=== PATIENT | female | born 1930 | race Caucasian/White ===

== ENCOUNTER → 2016-12-06 | Outpatient (CLI) | payer MEDICARE, BC ==
[2016-06-24 15:45] VITALS: BP 107/52
[~2016-12-06] MED LIST: AMIO100T PO; DULO30CA2 PO; ESOM40CA PO; FAMO40TA4 PO; FENT1PAT17 TP; FENT1PAT91 TD; GABA-585 PO; HYDR-2666 PO; LEVO500T38 PO; MELA5TAB PO; METH-37 PO; NAPR500T3 PO; ORPH100T PO; PHEN100C4 PO; TAMS0.4C2 PO
--- NOTE | 2016-12-06 16:34 | RAD ---
Examination: Ankle brachial index in the bilateral lower extremity arterial duplex Ankle brachial index Indication: Claudication, peripheral vascular disease. Comparison: None. Procedure: Arterial pressures are measured in the arms and ankles. Findings: . Right ankle: 116 mm Hg. Right arm: 136 mm Hg. Left ankle: Could not compress. Left arm: 120 mm Hg. Right SHILOH: 0.85. Left SHILOH: Could not compress the left posterior tibialis artery or dorsalis pedis artery.. Lower extremity duplex artery ultrasound - Procedure: Arterial 2D and duplex images are obtained of the lower extremity arteries. Findings: Diffuse atherosclerotic calcifications identified in the bilateral lower extremity arterial system.. No evidence of focal elevated velocity identified. The left peroneal artery could not be identified. Impression: 1. Mild diffuse atherosclerotic plaque formation with no hemodynamically significant stenosis.. 2. Mild peripheral vascular disease on the right. The left SHILOH could not be performed as the arteries could not be compressed.
== END | disposition home or self-care (01) ==
LOC: US 15:46
PROVIDERS: ATTEND Podiatrist Foot & Ankle Surgery
DX: I73.9 Peripheral vascular disease, unspecified (principal)
CPT/HCPCS: 93922; 93925

== ENCOUNTER → 2017-03-09 | Outpatient (CLI) | payer MEDICARE, BC ==
[2016-06-24 15:45] VITALS: BP 107/52
[~2017-03-09] MED LIST changes: -HYDR-2666 PO; +HYDR-2758 PO; -LEVO500T38 PO; +LEVO500T59 PO
--- NOTE | 2017-03-09 13:25 | KCIC ---
INDICATION: Lower extremity swelling and pain bilaterally. TECHNIQUE: Grayscale, color-flow, and spectral waveform analysis was performed. No comparison is available. FINDINGS: All visualized vein segments are compressible with normal phasicity of waveform and augmentation. No thrombus on grayscale or color imaging is identified. IMPRESSION: Exam is negative for deep vein thrombosis in either lower extremity. Electronically signed by: Fritz Choi MD (03/09/2017 1:22 PM) [facility]
== END | disposition home or self-care (01) ==
LOC: KCIC US 10:59
PROVIDERS: ATTEND Podiatrist Foot & Ankle Surgery
DX: M79.605 Pain in left leg (principal); M79.604 Pain in right leg; M79.89 Other specified soft tissue disorders
CPT/HCPCS: 93970

== ENCOUNTER 2017-04-03 21:10 | Inpatient (IN) | payer MEDICARE, BC ==
[~2017-04-03] VITALS: Ht 165.1 cm; Wt 41.3 kg
[2017-04-03] MEDS ORDERED: fentaNYL PF VIAL 100 MCG/2 ML VIAL IV PRN (22:15)
[2017-04-03 22:28] LABS: BASO % 1 % (0-3); EOS % 2 % (0-3); HEMATOCRIT 29.2 % (36.0-47.0); HEMOGLOBIN 9.2 g/dL (12.0-15.5); LYMPH # 1.6 x10^3/uL (1.0-4.8); LYMPH % 33 % (24-48); MEAN CORPUSCULAR HEMOGLOBIN 30 pg (25-35); MEAN CORPUSCULAR HGB CONC 31 g/dL (31-37); MEAN CORPUSCULAR VOLUME 94 fL (79-100); MONO % 16 % (0-9); NEUT % 48 % (31-73); PLATELET COUNT 185 x10^3/uL (140-400); RED BLOOD COUNT 3.11 x10^6/uL (3.50-5.40); RED CELL DISTRIBUTION WIDTH 15.1 % (11.5-14.5); WHITE BLOOD COUNT 4.7 x10^3/uL (4.0-11.0)
[2017-04-03 22:41] LABS: ANION GAP 10 (6-14); BLOOD UREA NITROGEN 17 mg/dL (7-20); CALCIUM 8.6 mg/dL (8.5-10.1); CARBON DIOXIDE 25 mmol/L (21-32); CHLORIDE 104 mmol/L (98-107); CREATININE 1.1 mg/dL (0.6-1.0); GLUCOSE 93 mg/dL (70-99); POTASSIUM 4.5 mmol/L (3.5-5.1); SODIUM 139 mmol/L (136-145)
[2017-04-03 22:47] LABS: ALBUMIN 3.8 g/dL (3.4-5.0); ALK PHOS 328 U/L (46-116); ALT (SGPT) 16 U/L (14-59); AST (SGOT) 23 U/L (15-37); DIRECT BILIRUBIN < 0.1 mg/dL (0.0-0.2); TOTAL BILIRUBIN 0.4 mg/dL (0.2-1.0); TOTAL PROTEIN 8.5 g/dL (6.4-8.2)
[2017-04-03 23:31] LABS: INR 1.1 (0.8-1.1); PROTHROMBIN TIME PATIENT 13.1 SEC (11.7-14.0)
--- NOTE | 2017-04-04 00:05 | RAD ---
CT CHEST WO CONTRAST dated 04/03/2017 11:16 PM Indication: Shortness of breath, chest pain, history of iodine allergy. Comparison: 06/19/2016 Technique: Contiguous axial imaging of the chest performed without the administration of intravenous contrast. One or more of the following individualized dose reduction techniques were utilized for this examination: 1. Automated exposure control 2. Adjustment of the mA and/or kV according to patient size 3. Use of iterative reconstruction technique Findings: Heart size upper limits of normal. Aneurysmal dilation of the ascending thoracic aorta measuring 4.8 cm maximum transverse diameter, similar to prior study. Mild ectasia of the aortic root measuring 3.5 cm, unchanged. No periaortic fluid collection or pericardial effusion. No mediastinal, hilar or axillary lymphadenopathy. Low-density nodule of the right thyroid gland measures 8 mm in size, nonspecific but unchanged. Central airways are patent. There are linear bands of increased density at both lung bases, likely scar or atelectasis. No consolidation or pleural effusion. No pneumothorax. There are a few scattered calcified granuloma. Limited images of upper abdomen unremarkable. IVC filter in place. No acute bony abnormality. Multilevel spondylosis. Moderate thoracolumbar scoliotic curvature. IMPRESSION: 1. Aneurysmal dilation of the ascending thoracic aorta, similar to prior study. 2. Mild bibasilar scar or atelectasis. Otherwise clear lungs. Electronically signed by: Samy Umana MD (04/04/2017 12:02 AM) [facility]
--- NOTE | 2017-04-04 01:10 | RAD ---
INDICATION: bilat leg pain swelling COMPARISON: None. TECHNIQUE: Grayscale, color and doppler ultrasound images were obtained of the bilateral lower extremity venous vasculature. RIGHT: No thrombus identified in the common femoral vein, femoral vein, popliteal vein or visualized calf veins. LEFT: No thrombus identified in the common femoral vein, femoral vein, popliteal vein or visualized calf veins. Edema of soft tissues is seen. Some limitation of calf veins. IMPRESSION: 1. No thrombus identified in deep venous system of bilateral lower extremities. Electronically signed by: Froilan Soto MD (04/04/2017 1:07 AM) [facility] [id number]
--- NOTE | 2017-04-04 01:16 | ED.ADGEN ---
Past Medical History Past Medical History: Arthritis, Arrhythmia, COPD, GERD, Hypertension, Seizure , Other Additional Past Medical Histor: SCOLIOSIS; colon cancer post resection Additional Past Surgical Histo: hemicolectomy for colon cancer Alcohol Use: None Drug Use: None Adult General Chief Complaint Chief Complaint: MULTIPLE COMPLAINTS HPI HPI Patient is a 87 year old woman, remote history of colon cancer, history of hypertension, COPD, GERD, scoliosis, DVT with IVC filter in place not anticoagulation, who presents to the emergency department with a complaint of chest pain that is left-sided intermittent over the past day, associated with shortness of breath, no cough. Patient states she is also experiencing swelling in her lower extremities, right-sided greater than left, and pain in her lower extremities, right-sided greater than left of present in both legs. Patient denies any fevers or chills, any urinary complaints, any nausea or vomiting, any diarrhea, any recent travel or surgery, any missed doses of medication recent medication changes. She states the pain is located along the entire left side of her chest, sharp and stabbing, currently resolved. Patient's daughters are at bedside. Review of Systems Review of Systems Constitutional: Denies fever or chills. [] Eyes: Denies change in visual acuity. [] HENT: Denies nasal congestion or sore throat. [] Respiratory: Denies cough, complaining of shortness of breath. Cardiovascular: Left-sided chest pain, swelling in bilateral lower extremities. GI: Denies abdominal pain, nausea, vomiting, bloody stools or diarrhea. [] : Denies dysuria. [] Musculoskeletal: Denies back pain or joint pain. [] Integument: Denies rash. [] Neurologic: Denies headache, focal weakness or sensory changes. [] Endocrine: Denies polyuria or polydipsia. [] Lymphatic: Denies swollen glands. [] Psychiatric: Denies depression or anxiety. [] Current Medications Current Medications Current Medications Medications (Trade) Dose Ordered Sig/Christine Start Time Stop Time Status Last Admin Dose Admin Fentanyl Citrate (Fentanyl 2ml Vial) 25 mcg PRN Q15MIN PRN 04/03/17 22:15 04/04/17 22:14 Allergies Allergies Allergies Coded Allergies Type Severity Reaction Last Updated Verified Penicillins Allergy Intermediate 12/31/15 Yes Sulfa (Sulfonamide Antibiotics) Allergy Intermediate 12/31/15 Yes adhesive tape Allergy Intermediate 12/31/15 Yes aspirin Allergy Intermediate 12/31/15 Yes doxycycline Allergy Intermediate 12/31/15 Yes ferrous sulfate Allergy Intermediate 12/31/15 Yes ibuprofen Allergy Intermediate 12/31/15 Yes iodine Allergy Intermediate 12/31/15 Yes lactose Allergy Intermediate 12/31/15 Yes morphine Allergy Intermediate 12/31/15 Yes povidone-iodine Allergy Intermediate 12/31/15 Yes silver sulfadiazine Allergy Intermediate 12/31/15 Yes soap Allergy Intermediate 12/31/15 Yes I S O L A T I O N *CONTACT* Allergy Unknown 01/03/16 Yes Physical Exam Physical Exam Constitutional: Well developed, well nourished, no acute distress, non-toxic appearance. [] HENT: Normocephalic, atraumatic, bilateral external ears normal, oropharynx moist, no oral exudates, nose normal. [] Eyes: PERRLA, EOMI, conjunctiva normal, no discharge. [] Neck: Normal range of motion, no tenderness, supple, no stridor. [] Cardiovascular:Heart rate regular rhythm, no murmur, S1, S2, rubs or gallops. [] Lungs & Thorax: Diminished breath sounds at bases bilaterally, no rhonchi or rales appreciated, no wheezing. No chest wall crepitus or tenderness.[] Abdomen: Bowel sounds normal, soft, no tenderness, no rebound, rigidity, no guarding, no masses, no pulsatile masses. [] Skin: Warm, dry, no erythema, no rash. [] Back: No tenderness, no CVA tenderness. [] Extremities: No tenderness, no cyanosis, no clubbing, ROM intact, 1+ pitting edema bilateral lower extremity is, patient with pain with palpation of the right calf. No cord noted. Neurologic: Alert and oriented X 3, normal motor function, normal sensory function, no focal deficits noted. [] Psychologic: Affect normal, judgement normal, mood normal. [] Current Patient Data Lab Values Laboratory Tests Test 04/03/17 21:25 White Blood Count 4.7 x10^3/uL (4.0-11.0) Red Blood Count 3.11 x10^6/uL (3.50-5.40) L Hemoglobin 9.2 g/dL (12.0-15.5) L Hematocrit 29.2 % (36.0-47.0) L Mean Corpuscular Volume 94 fL (79-100) Mean Corpuscular Hemoglobin 30 pg (25-35) Mean Corpuscular Hemoglobin Concent 31 g/dL (31-37) Red Cell Distribution Width 15.1 % (11.5-14.5) H Platelet Count 185 x10^3/uL (140-400) Neutrophils (%) (Auto) 48 % (31-73) Lymphocytes (%) (Auto) 33 % (24-48) Monocytes (%) (Auto) 16 % (0-9) H Eosinophils (%) (Auto) 2 % (0-3) Basophils (%) (Auto) 1 % (0-3) Neutrophils # (Auto) 2.3 x10^3uL (1.8-7.7) Lymphocytes # (Auto) 1.6 x10^3/uL (1.0-4.8) Monocytes # (Auto) 0.7 x10^3/uL (0.0-1.1) Eosinophils # (Auto) 0.1 x10^3/uL (0.0-0.7) Basophils # (Auto) 0.0 x10^3/uL (0.0-0.2) Prothrombin Time 13.1 SEC (11.7-14.0) Prothrombin Time INR 1.1 (0.8-1.1) PTT 31 SEC (24-38) Sodium Level 139 mmol/L (136-145) Potassium Level 4.5 mmol/L (3.5-5.1) Chloride Level 104 mmol/L (98-107) Carbon Dioxide Level 25 mmol/L (21-32) Anion Gap 10 (6-14) Blood Urea Nitrogen 17 mg/dL (7-20) Creatinine 1.1 mg/dL (0.6-1.0) H Estimated GFR (Cockcroft-Gault) 47.0 Glucose Level 93 mg/dL (70-99) Calcium Level 8.6 mg/dL (8.5-10.1) Total Bilirubin 0.4 mg/dL (0.2-1.0) Direct Bilirubin < 0.1 mg/dL (0.0-0.2) Aspartate Amino Transferase (AST) 23 U/L (15-37) Alanine Aminotransferase (ALT) 16 U/L (14-59) Alkaline Phosphatase 328 U/L (46-116) H Troponin I Quantitative < 0.017 ng/mL (0.000-0.055) LY-Vtm-N-Type Natriuretic Peptide 1040 pg/mL (0-449) H Total Protein 8.5 g/dL (6.4-8.2) H Albumin 3.8 g/dL (3.4-5.0) Lipase 94 U/L (73-393) Laboratory Tests 04/03/17 21:25 Laboratory Tests 04/03/17 21:25 EKG EKG EC: Sinus rhythm, heart rate 57 bpm, upright axis, QTC of 447, MS 152, QRS of 78, patient with contour abnormalities noted in the anterior septal leads , but no ST elevations or depressions, abnormal ECG, does not meet STEMI criteria. As interpreted by me.[] Radiology/Procedures Radiology/Procedures [][facility] [address] [place] [address] IMAGING REPORT Signed PATIENT: GEN PEARSON ACCOUNT: [id number] : 1930 LOCATION: ER AGE: 87 SEX: F EXAM STATUS: REG ER ORD. PHYSICIAN: GELY YOUSSEF DO REASON: CP/SOB/hx DVT PROCEDURE: CT CHEST WO CONTRAST CT CHEST WO CONTRAST dated 04/03/2017 11:16 PM Indication: Shortness of breath, chest pain, history of iodine allergy. Comparison: 06/19/2016 Technique: Contiguous axial imaging of the chest performed without the administration of intravenous contrast. One or more of the following individualized dose reduction techniques were utilized for this examination: 1. Automated exposure control 2. Adjustment of the mA and/or kV according to patient size 3. Use of iterative reconstruction technique Findings: Heart size upper limits of normal. Aneurysmal dilation of the ascending thoracic aorta measuring 4.8 cm maximum transverse diameter, similar to prior study. Mild ectasia of the aortic root measuring 3.5 cm, unchanged. No periaortic fluid collection or pericardial effusion. No mediastinal, hilar or axillary lymphadenopathy. Low-density nodule of the right thyroid gland measures 8 mm in size, nonspecific but unchanged. Central airways are patent. There are linear bands of increased density at both lung bases, likely scar or atelectasis. No consolidation or pleural effusion. No pneumothorax. There are a few scattered calcified granuloma. Limited images of upper abdomen unremarkable. IVC filter in place. No acute bony abnormality. Multilevel spondylosis. Moderate thoracolumbar scoliotic curvature. IMPRESSION: 1. Aneurysmal dilation of the ascending thoracic aorta, similar to prior study. 2. Mild bibasilar scar or atelectasis. Otherwise clear lungs. Electronically signed by: Samy Umana MD (04/04/2017 12:02 AM) [facility] DICTATED and SIGNED BY: SAMY UMANA MD DATE: 04/03/17 2739 CC: DAVID CASTREJON MD; GELY YOUSSEF DO ~ Impressions: [place] [address] IMAGING REPORT Signed PATIENT: GEN PEARSON ACCOUNT: [id number] : 1930 LOCATION: ER AGE: 87 SEX: F EXAM STATUS: REG ER ORD. PHYSICIAN: GELY YOUSSEF DO REASON: LE swelling/pain/ hx DVT PROCEDURE: VENOUS LOWER EXT BILATERAL INDICATION: bilat leg pain swelling COMPARISON: None. TECHNIQUE: Grayscale, color and doppler ultrasound images were obtained of the bilateral lower extremity venous vasculature. RIGHT: No thrombus identified in the common femoral vein, femoral vein, popliteal vein or visualized calf veins. LEFT: No thrombus identified in the common femoral vein, femoral vein, popliteal vein or visualized calf veins. Edema of soft tissues is seen. Some limitation of calf veins. IMPRESSION: 1. No thrombus identified in deep venous system of bilateral lower extremities. Electronically signed by: Xavier Hough MD (04/04/2017 1:07 AM) [facility] DICTATED and SIGNED BY: XAVIER HOUGH MD DATE: 04/04/17 010 CC: DAVID CASTREJON MD; GELY YOUSSEF DO ~ [address] [address] IMAGING REPORT Signed PATIENT: GEN PEARSON ACCOUNT: [id number] : 1930 LOCATION: [address] [place] [address] AGE: 87 SEX: F EXAM STATUS: ADM IN ORD. PHYSICIAN: GELY YOUSSEF DO REASON: CP/SOB/hx DVT, PROCEDURE: LUNG VENT/PERFUSION SCAN(VQ) Indication: Chest pain and shortness of breath Technique: Static images are obtained of both lungs following inhalation of 10 mCi of xenon-133 and again following IV administration of 5 mCi of 99 M technetium MAA. Comparison: Chest CT one day prior Findings: There are numerous perfusion defects scattered throughout the bilateral lungs. Some of these are better seen on the lateral and oblique views therefore cannot tell if they are matched or not. There are some perfusion defects that may be slightly worse on the perfusion when compared to the ventilation on the anterior and posterior images. Impression: 1. Numerous perfusion defects are seen throughout the bilateral lungs with some of them best seen on the oblique and lateral views therefore cannot tell if there are matched are not in comparison to the ventilation images. Overall this exam is likely in the high probability range. Electronically signed by: Xavier Hough MD (04/04/2017 2:16 AM) [facility] DICTATED and SIGNED BY: XAVIER HOUGH MD DATE: 04/04/17211 CC: DAVID CASTREJON MD; GELY YOUSSEF DO ~ Course & Med Decision Making Course & Med Decision Making Pertinent Labs and Imaging studies reviewed. (See chart for details) Chest x-ray reveals some rotation, also evidence of enlarged and tortuous aorta. Concern for possible abnormality of the great vessels, versus possible PE versus possible cardiac cause of the patient's symptoms. No pulmonary edema noted on her chest x-ray, patient is noted to have pedal edema stated, an elevated proBNP at 1040, although there is no prior available for comparison. I did discuss these findings with patient and family at bedside, patient is resting comfortably at this time. CT of the chest without contrast obtained due to patient's IV dye allergy, revealed aneurysmal dilatation of the thoracic aorta, without evidence of dissection. Ultrasound of the bilateral lower extremities was negative for evidence of DVT. V/Q scan pending. I did discuss findings as above with Dr. Castrejon, patient's primary care provider. Patient has an aspirin allergy, and was taken off anticoagulation previously, due to bleeding risk. Patient accepted to his service as a full admission to the medical telemetry floor, plan for cardiology evaluation, serial enzymes, will be updated with results of V/Q study if they require additional intervention, at this time will hold off on any anticoagulation. Patient and family at bedside agreeable with plan as stated, patient resting comfortably at this time without recurrence of symptoms. Patient receiving V/Q study, remained stable and comfortable in the emergency department, awaiting transfer to the floor. Dr. Bernstein of emergency medicine to follow on V/Q study results, and to update Dr. Castrejon as needed if additional intervention is required. Addendum by Dr. Debby Bernstein M.D. at 0244: I followed up with the patient's VQ scan completed in the emergency department. The patient study was found to be high probability for pulmonary embolism. I contacted Dr. Castrejon who asked that the patient be started on heparin per pulmonary embolism protocol. This was started in the emergency department. Patient's vital signs remained stable at this time. Additional impression: Pulmonary embolism Dragon Disclaimer Dragon Disclaimer This electronic medical record was generated, in whole or in part, using a voice recognition dictation system. Departure Impression: Primary Impression: SOB (shortness of breath) Additional Impression: Chest pain Disposition: ADMITTED INPATIENT Admitting Physician: David Castrejon Condition: IMPROVED Problem Qualifiers GELY YOUSSEF DO Apr 04, 2017 01:16 DEBBY BERNSTEIN MD Apr 04, 2017 02:45
[2017-04-04] MEDS ORDERED: ACETAMINOPHEN 325 MG TABLET. PO PRN (02:15)
[2017-04-04] MEDS ORDERED: ONDANSETRON PF 4 MG/2 ML VIAL. IV PRN (02:15)
[2017-04-04] MEDS ORDERED: fentaNYL PF VIAL 100 MCG/2 ML VIAL IV PRN (02:15)
--- NOTE | 2017-04-04 02:20 | RAD ---
Indication: Chest pain and shortness of breath Technique: Static images are obtained of both lungs following inhalation of 10 mCi of xenon-133 and again following IV administration of 5 mCi of 99 M technetium MAA. Comparison: Chest CT one day prior Findings: There are numerous perfusion defects scattered throughout the bilateral lungs. Some of these are better seen on the lateral and oblique views therefore cannot tell if they are matched or not. There are some perfusion defects that may be slightly worse on the perfusion when compared to the ventilation on the anterior and posterior images. Impression: 1. Numerous perfusion defects are seen throughout the bilateral lungs with some of them best seen on the oblique and lateral views therefore cannot tell if there are matched are not in comparison to the ventilation images. Overall this exam is likely in the high probability range. Electronically signed by: Froilan Soto MD (04/04/2017 2:16 AM) [facility]
[2017-04-04] MEDS ORDERED: HEPARIN for IV BOLUS 10,000 UNIT/10 ML VIAL. IV PRN ×2 (02:45)
[2017-04-04] MEDS ORDERED: HEPARIN for IV BOLUS 10,000 UNIT/10 ML VIAL. IV ONE (02:45)
[2017-04-04 03:08] LABS: BILIRUBIN,URINE NEGATIVE (NEG); GLUCOSE,URINE NEGATIVE (NEG); NITRITE,URINE NEGATIVE (NEG); PH,URINE 7.5; PROTEIN,URINE NEGATIVE (NEG-TRACE); UROBILINOGEN,URINE 0.2 mg/dL (0.2 mg/dL)
[2017-04-04 03:15] LABS: BACTERIA,URINE FEW /HPF (0-FEW); RBC,URINE 0 /HPF (0-2); SQUAMOUS EPITHELIAL CELL,UR FEW /LPF
[2017-04-04] MEDS ORDERED: WARFARIN 5 MG TABLET. PO ONE (03:15)
[2017-04-04] MEDS: HEPARIN 25,000UTS/500ML PREMIX 500 ML IV PRN ×2 (03:25→10:28)
[2017-04-04 03:40] VITALS: BP 160/69
--- NOTE | 2017-04-04 06:38 | EKG ---
[facility] [address] [place] [address] Test Date: 2017-04-03 Test Time: 21:22:16 Pat Name: GEN PEARSON Department: Room: [facility] Gender: F Asphalt Roller Person: : 1930 Requested By: GELY YOUSSEF Order Number: [id number] Reading MD: Jun Muller Measurements Intervals [place] Rate: 57 P: -90 IA: 152 QRS: 38 QRSD: 78 T: 68 QT: 456 QTc: 447 Interpretive Statements SINUS RHYTHM NON-SPECIFIC ST/T CHANGES Electronically Signed On 04-09-2017 10:18:29 CDT by Jun Muller
[2017-04-04 07:22] VITALS: BP 139/71
--- NOTE | 2017-04-04 07:41 | RAD ---
Portable chest, 04/03/2017: History: Left-sided chest pain Comparison is made to a study from 06/18/2016. The patient is rotated to the right. The heart is at the upper limits of normal in size. There is calcific plaquing and tortuosity of the thoracic aorta. The pulmonary vascularity is normal. There are a few scattered parenchymal scars. No acute infiltrate is seen. There is no evidence of pleural fluid. The bony structures are demineralized. Old healed rib fractures are present on the right. IMPRESSION: 1. Aortic atherosclerosis and ectasia. 2. No acute cardiopulmonary abnormality is detected.
--- NOTE | 2017-04-04 08:43 | PDOC2 ---
TODD BARBOSA [employer] 04/04/17 0843: CARDIAC CONSULT DATE OF CONSULT Date of Consult DATE: 04/04/17 TIME: 08:33 REASON FOR CONSULT Reason for Consult: Chest pain Shortness of breath Leg swelling REFERRING PHYSICIAN Referring Physician: Dr. Roy SOURCE Source: Chart review, Patient HISTORY OF PRESENT ILLNESS HISTORY OF PRESENT ILLNESS This is an 87 yo female who presented with complaints of left side/chest pain, shortness of breath, and lower extremity edema. Patient reports LE edema has been present for the last couple of days. Has had difficulty getting around. Left side pain also started a couple of days ago. Unable to describes it, "just hurt." Was associated with shortness of breath. Denies any palpitations, dizziness, diaphoresis, or nausea/vomiting. Is presently pain free. PAST MEDICAL HISTORY Cardiovascular: AFIB (paroxysmal), HTN Pulmonary: COPD CENTRAL NERVOUS SYSTEM: Periperal neuropathy, Seizure, Other (subdural hematoma ) GI: GERD, Other (colon CA) Heme/Onc: Anemia NOS, Other (DVT s/p IVC ) Hepatobiliary: No pertinent hx Psych: No pertinent hx Musculoskeletal: Osteoarthritis, Other (scoliosis, chronic neck pain) Infectious disease: No pertinent hx ENT: No pertinent hx Renal/: No pertinent hx Endocrine: Osteoporosis Dermatology: No pertinent hx PAST SURGICAL HISTORY Past Surgical History: Cataract Removal, Hernia Repair, Hysterectomy FAMILY HISTORY Family History: Other (noncontributory to age) SOCIAL HISTORY Smoke: No ALCOHOL: none Drugs: None Lives: Alone CURRENT MEDICATIONS CURRENT MEDICATIONS Current Medications Medications (Trade) Dose Ordered Sig/Christine Route PRN Reason Start Time Stop Time Status Last Admin Dose Admin Heparin Sodium (Porcine) (Heparin Sodium) 3,200 unit 1X ONCE IV 04/04/17 02:45 04/04/17 02:52 DC 04/04/17 03:18 Heparin Sodium/ Dextrose 500 ml @ 0 mls/hr CONT PRN IV SEE I/O RECORD 04/04/17 02:45 04/04/17 03:25 Warfarin Sodium (Coumadin Per Pharmacy) 1 each PRN DAILY PRN MC PER PROTOCOL 04/04/17 03:00 04/04/17 03:10 Warfarin Sodium (Coumadin) 5 mg ONCE ONCE PO 04/04/17 03:15 04/04/17 03:16 DC 04/04/17 03:31 ALLERGIES ALLERGIES: Coded Allergies: Penicillins (Verified Allergy, Intermediate, 12/31/15) Sulfa (Sulfonamide Antibiotics) (Verified Allergy, Intermediate, 12/31/15) adhesive tape (Verified Allergy, Intermediate, 12/31/15) aspirin (Verified Allergy, Intermediate, 12/31/15) doxycycline (Verified Allergy, Intermediate, 12/31/15) ferrous sulfate (Verified Allergy, Intermediate, 12/31/15) ibuprofen (Verified Allergy, Intermediate, 12/31/15) iodine (Verified Allergy, Intermediate, 12/31/15) lactose (Verified Allergy, Intermediate, 12/31/15) morphine (Verified Allergy, Intermediate, 12/31/15) povidone-iodine (Verified Allergy, Intermediate, 12/31/15) silver sulfadiazine (Verified Allergy, Intermediate, 12/31/15) soap (Verified Allergy, Intermediate, 12/31/15) I S O L A T I O N *CONTACT* (Verified Allergy, Unknown, 01/03/16) mrsa shoulder ROS Review of System 14 point ROS conducted with pertinent positives noted above in HPI. PHYSICAL EXAM General: Alert, Oriented X3, Cooperative, No acute distress HEENT: Atraumatic, Mucous membr. moist/pink Lungs: Clear to auscultation, Other (diminished bases ) Heart: Regular rate, Normal S1, Normal S2, Other (soft systolic murmur) Abdomen: Soft, No tenderness Extremities: Other (trace bi LE edema ) Skin: No breakdown, No significant lesion Neuro: Normal speech, Sensation intact Psych/Mental Status: Mental status NL, Mood NL MUSCULOSKELETAL: Osteoarthritic changes both hands VITALS VITALS Vital Signs Date Time Temp Pulse Resp B/P (MAP) Pulse Ox O2 Delivery O2 Flow Rate FiO2 04/04/17 07:22 97.7 70 16 139/71 (93) 97 Room Air 97.7 LABS Lab: Laboratory Tests Test 04/03/17 21:25 04/04/17 03:00 04/04/17 04:10 White Blood Count 4.7 x10^3/uL (4.0-11.0) Red Blood Count 3.11 x10^6/uL (3.50-5.40) Hemoglobin 9.2 g/dL (12.0-15.5) Hematocrit 29.2 % (36.0-47.0) Mean Corpuscular Volume 94 fL (79-100) Mean Corpuscular Hemoglobin 30 pg (25-35) Mean Corpuscular Hemoglobin Concent 31 g/dL (31-37) Red Cell Distribution Width 15.1 % (11.5-14.5) Platelet Count 185 x10^3/uL (140-400) Neutrophils (%) (Auto) 48 % (31-73) Lymphocytes (%) (Auto) 33 % (24-48) Monocytes (%) (Auto) 16 % (0-9) Eosinophils (%) (Auto) 2 % (0-3) Basophils (%) (Auto) 1 % (0-3) Neutrophils # (Auto) 2.3 x10^3uL (1.8-7.7) Lymphocytes # (Auto) 1.6 x10^3/uL (1.0-4.8) Monocytes # (Auto) 0.7 x10^3/uL (0.0-1.1) Eosinophils # (Auto) 0.1 x10^3/uL (0.0-0.7) Basophils # (Auto) 0.0 x10^3/uL (0.0-0.2) Prothrombin Time 13.1 SEC (11.7-14.0) Prothromb Time International Ratio 1.1 (0.8-1.1) Activated Partial Thromboplast Time 31 SEC (24-38) Sodium Level 139 mmol/L (136-145) Potassium Level 4.5 mmol/L (3.5-5.1) Chloride Level 104 mmol/L (98-107) Carbon Dioxide Level 25 mmol/L (21-32) Anion Gap 10 (6-14) Blood Urea Nitrogen 17 mg/dL (7-20) Creatinine 1.1 mg/dL (0.6-1.0) Estimated GFR (Cockcroft-Gault) 47.0 Glucose Level 93 mg/dL (70-99) Calcium Level 8.6 mg/dL (8.5-10.1) Total Bilirubin 0.4 mg/dL (0.2-1.0) Direct Bilirubin < 0.1 mg/dL (0.0-0.2) Aspartate Amino Transf (AST/SGOT) 23 U/L (15-37) Alanine Aminotransferase (ALT/SGPT) 16 U/L (14-59) Alkaline Phosphatase 328 U/L (46-116) Troponin I Quantitative < 0.017 ng/mL (0.000-0.055) < 0.017 ng/mL (0.000-0.055) FT-Bpy-K-Type Natriuretic Peptide 1040 pg/mL (0-449) Total Protein 8.5 g/dL (6.4-8.2) Albumin 3.8 g/dL (3.4-5.0) Lipase 94 U/L (73-393) Urine Collection Type Unknown Urine Color Yellow Urine Clarity Clear Urine pH 7.5 Urine Specific [place] 1.010 Urine Protein Negative mg/dL (NEG-TRACE) Urine Glucose (UA) Negative mg/dL (NEG) Urine Ketones (Stick) Negative mg/dL (NEG) Urine Blood Negative (NEG) Urine Nitrite Negative (NEG) Urine Bilirubin Negative (NEG) Urine Urobilinogen Dipstick 0.2 mg/dL (0.2 mg/dL) Urine Leukocyte Esterase Trace (NEG) Urine RBC 0 /HPF (0-2) Urine WBC 5-10 /HPF (0-4) Urine Squamous Epithelial Cells Few /LPF Urine Bacteria Few /HPF (0-FEW) ASSESSMENT/PLAN ASSESSMENT/PLAN 1. Chest pain, atypical; trop negative x 2- AMI ruled out. Will check echo to assess LV function. Recommend conservative management given advanced age and debility. Supportive care. 2. Dyspnea, ? PE- high probability per VQ scan. Heparin initiated. NT Pro BNP mildly elevated but insignificant based upon age adjustment. CXR without vascular congestion. Doubt acute CHF 3. Paroxysmal AFIB; maintaining SR on Amiodarone. Not previously anticoagulated likely due to increased fall risk. H/o subdural hematoma. 4. Hypertension; controlled. 5. Malnutrition Problems: GABE GREGORIO MD 04/04/17 1652: CARDIAC CONSULT ALLERGIES ALLERGIES: Coded Allergies: Penicillins (Verified Allergy, Intermediate, 12/31/15) Sulfa (Sulfonamide Antibiotics) (Verified Allergy, Intermediate, 12/31/15) adhesive tape (Verified Allergy, Intermediate, 12/31/15) aspirin (Verified Allergy, Intermediate, 12/31/15) doxycycline (Verified Allergy, Intermediate, 12/31/15) ferrous sulfate (Verified Allergy, Intermediate, 12/31/15) ibuprofen (Verified Allergy, Intermediate, 12/31/15) iodine (Verified Allergy, Intermediate, 12/31/15) lactose (Verified Allergy, Intermediate, 12/31/15) morphine (Verified Allergy, Intermediate, 12/31/15) povidone-iodine (Verified Allergy, Intermediate, 12/31/15) silver sulfadiazine (Verified Allergy, Intermediate, 12/31/15) soap (Verified Allergy, Intermediate, 12/31/15) I S O L A T I O N *CONTACT* (Verified Allergy, Unknown, 01/03/16) mrsa shoulder ASSESSMENT/PLAN ASSESSMENT/PLAN Patient seen and examined. Agree with SEASONING MIXER's assessment and plan. Chest pain with atypical features. Myocardial infarction be ruled out. 2-D echo showed normal LV function without any wall motion abnormalities. VQ scan high probability for PE. Pulmonary team consulted. Paroxysmal A. fib, maintaining sinus rhythm with amiodarone. No further cardiac workup is indicated at this time. Thank you for your consultation. Problems: TODD BARBOSA APRN Apr 04, 2017 08:43 GABE GREGORIO MD Apr 04, 2017 16:52
[2017-04-04 09:22] LABS: CHOLESTEROL/HDL RATIO 1.7
[2017-04-04 10:02] LABS: INR 1.1 (0.8-1.1); PROTHROMBIN TIME PATIENT 13.6 SEC (11.7-14.0)
[2017-04-04] MEDS: fentaNYL 50MCG/HR PATCH 1 PATCH PATCH.TD72 TD SCH (10:45)
[2017-04-04 10:46] VITALS: BP 116/48
[2017-04-04] MEDS: PHENYTOIN SODIUM EXTENDED 100 MG CAPSULE PO SCH ×2 (11:27→21:24)
[2017-04-04] MEDS: GABAPENTIN 100 MG CAPSULE. PO SCH (11:27)
[2017-04-04] MEDS: PANTOPRAZOLE 40 MG TABLET.DR. PO SCH (11:27)
[2017-04-04] MEDS: AMIODARONE HCL 100 MG TABLET PO SCH (11:27)
--- NOTE | 2017-04-04 12:13 | CARD ---
APPROVED REPORT EXAM: Two-dimensional and M-mode echocardiogram with Doppler and color Doppler. Other Information Quality : Technically Limited Rhythm : NSRTechnically limited study due to body habitus and positioning. INDICATION Dyspnea Chest Pain 2D DIMENSIONS Left Atrium(2D)3.1 (1.6-4.0cm)IVSd1.0 (0.7-1.1cm) Aortic Root(2D)3.7 (2.0-3.7cm)LVDd4.5 (3.9-5.9cm) LVOT Diameter2.2 (1.8-2.4cm)PWd1.0 (0.7-1.1cm) LVDs3.0 (2.5-4.0cm)FS (%) 32.7 % SV55.4 mlLVEF(%)61.3 (>50%) Aortic Valve AoV Peak Alfonso.138.4cm/sAoV VTI21.8cm AO Peak GR.7.7mmHgLVOT VTI 23.15cm AO Mean GR.3mmHgAVA (VTI)3.90cm2 AI P 1/2 [id number] Mitral Valve MV E Vwukfscc51.6cm/sMV E Peak Gr.2mmHg MV DECEL [id number] A Zqydwdve70.7cm/s MV KPZ62rlR/A Ratio0.9 MV A Drdwmdad73ycDKF (PHT)2.68cm2 TDI Lateral E' P. V5.63cm/sMedial E' P. V6.41cm/s E/Lateral E'10.6E/Medial E'9.3 Tricuspid Valve TR P. Sulqucvc068ot/sRAP RUFRSXJD5xaRr TR Peak Gr.35xcMvVGWB50cgAm LEFT VENTRICLE The left ventricle is normal size. There is normal left ventricular wall thickness. Left ventricle sy stolic function is normal. The Ejection Fraction is 55-60%. There is grossly normal LV segmental wall motion. Suboptimal images. The left ventricular diastolic function and filling is normal for age. Th ere is no ventricular septal defect visualized. RIGHT VENTRICLE The right ventricle is normal size. The right ventricular systolic function is normal. ATRIA The left atrium size is normal. The right atrium size is normal. The interatrial septum is intact wit h no evidence for an atrial septal defect or patent foramen ovale as noted on 2-D or Doppler imaging. AORTIC VALVE The aortic valve is not well visualized. The aortic valve appears trileaflet. Doppler and Color Flow revealed mild aortic regurgitation. There is no significant aortic valvular stenosis. MITRAL VALVE The mitral valve leaflets are thickened. There is no mitral valve stenosis. Doppler and Color Flow re vealed mild mitral regurgitation. TRICUSPID VALVE The tricuspid valve is normal in structure and function. Doppler and Color Flow revealed mild tricusp id regurgitation. The PA pressure was estimated at 38 mmHg. There is no tricuspid valve stenosis. PULMONIC VALVE Doppler and Color Flow revealed no pulmonic valvular regurgitation. There is no pulmonic valvular cristel nosis. GREAT VESSELS The aortic root is enlarged measuring 3.8 cm. Pulmonary veins not recorded. The IVC is normal in size and collapses >50% with inspiration. PERICARDIAL EFFUSION There is no evidence of significant pericardial effusion. Critical Notification Critical Value: No <Conclusion> Left ventricle systolic function is normal. The Ejection Fraction is 55-60%. There is grossly normal LV segmental wall motion. Suboptimal images. The left ventricular diastolic function and filling is normal for age. Doppler and Color Flow revealed mild aortic regurgitation. Doppler and Color Flow revealed mild mitral regurgitation. Doppler and Color Flow revealed mild tricuspid regurgitation. The PA pressure was estimated at 38 mmH g. The aortic root is enlarged measuring 3.8 cm.
--- NOTE | 2017-04-04 12:55 | PDOC ---
PROGRESS NOTES Subjective Subjective Pt states hx of 24 hr period, prior to admission, with increased SOB and stabbing left CP. Pt states the pain was intermittent, however the SOB was persistent. Pt ultimately asked her family to bring her to [facility] ER. Pt awake and pleasant in conversation. Denies pain this morning. States her SOB and CP have resolved since admission. States she is hungry and has been eating and drinking well with good output. Objective Objective Pt awake and alert. NAD. VSS. Afebrile. Lungs CTA bilat. Resp even and unlabored. Pt on RA, not requiring O2. Heart with RRR. No murmurs. No pedal edema present. Abdomen soft, nondistended, and nontender. BS+x4. 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 -Heparin initiated -CXR without congestion. -Cardiology consulted -Trip negative x2 -Echo tomorrow -Pulmonology consulted Comment Review of Relevant I have reviewed the following items nurys (where applicable) has been applied. Labs Laboratory Tests Test 04/03/17 21:25 04/04/17 03:00 04/04/17 04:10 04/04/17 09:30 White Blood Count 4.7 x10^3/uL (4.0-11.0) Red Blood Count 3.11 x10^6/uL (3.50-5.40) Hemoglobin 9.2 g/dL (12.0-15.5) Hematocrit 29.2 % (36.0-47.0) Mean Corpuscular Volume 94 fL (79-100) Mean Corpuscular Hemoglobin 30 pg (25-35) Mean Corpuscular Hemoglobin Concent 31 g/dL (31-37) Red Cell Distribution Width 15.1 % (11.5-14.5) Platelet Count 185 x10^3/uL (140-400) Neutrophils (%) (Auto) 48 % (31-73) Lymphocytes (%) (Auto) 33 % (24-48) Monocytes (%) (Auto) 16 % (0-9) Eosinophils (%) (Auto) 2 % (0-3) Basophils (%) (Auto) 1 % (0-3) Neutrophils # (Auto) 2.3 x10^3uL (1.8-7.7) Lymphocytes # (Auto) 1.6 x10^3/uL (1.0-4.8) Monocytes # (Auto) 0.7 x10^3/uL (0.0-1.1) Eosinophils # (Auto) 0.1 x10^3/uL (0.0-0.7) Basophils # (Auto) 0.0 x10^3/uL (0.0-0.2) Prothrombin Time 13.1 SEC (11.7-14.0) 13.6 SEC (11.7-14.0) Prothromb Time International Ratio 1.1 (0.8-1.1) 1.1 (0.8-1.1) Activated Partial Thromboplast Time 31 SEC (24-38) Sodium Level 139 mmol/L (136-145) Potassium Level 4.5 mmol/L (3.5-5.1) Chloride Level 104 mmol/L (98-107) Carbon Dioxide Level 25 mmol/L (21-32) Anion Gap 10 (6-14) Blood Urea Nitrogen 17 mg/dL (7-20) Creatinine 1.1 mg/dL (0.6-1.0) Estimated GFR (Cockcroft-Gault) 47.0 Glucose Level 93 mg/dL (70-99) Calcium Level 8.6 mg/dL (8.5-10.1) Total Bilirubin 0.4 mg/dL (0.2-1.0) Direct Bilirubin < 0.1 mg/dL (0.0-0.2) Aspartate Amino Transf (AST/SGOT) 23 U/L (15-37) Alanine Aminotransferase (ALT/SGPT) 16 U/L (14-59) Alkaline Phosphatase 328 U/L (46-116) Troponin I Quantitative < 0.017 ng/mL (0.000-0.055) < 0.017 ng/mL (0.000-0.055) < 0.017 ng/mL (0.000-0.055) DH-Lnq-T-Type Natriuretic Peptide 1040 pg/mL (0-449) Total Protein 8.5 g/dL (6.4-8.2) Albumin 3.8 g/dL (3.4-5.0) Lipase 94 U/L (73-393) Urine Collection Type Unknown Urine Color Yellow Urine Clarity Clear Urine pH 7.5 Urine Specific [place] 1.010 Urine Protein Negative mg/dL (NEG-TRACE) Urine Glucose (UA) Negative mg/dL (NEG) Urine Ketones (Stick) Negative mg/dL (NEG) Urine Blood Negative (NEG) Urine Nitrite Negative (NEG) Urine Bilirubin Negative (NEG) Urine Urobilinogen Dipstick 0.2 mg/dL (0.2 mg/dL) Urine Leukocyte Esterase Trace (NEG) Urine RBC 0 /HPF (0-2) Urine WBC 5-10 /HPF (0-4) Urine Squamous Epithelial Cells Few /LPF Urine Bacteria Few /HPF (0-FEW) Triglycerides Level 43 mg/dL (0-150) Cholesterol Level 179 mg/dL (0-200) LDL Cholesterol, Calculated 64 mg/dL (0-100) VLDL Cholesterol, Calculated 9 mg/dL (0-40) Non-HDL Cholesterol Calculated 73 mg/dL (0-129) HDL Cholesterol 106 mg/dL (40-60) Cholesterol/HDL Ratio 1.7 Heparin Anti-Xa Act, Unfractionated 0.10 IU/mL (0.30-0.70) Laboratory Tests Test 04/03/17 21:25 04/04/17 03:00 04/04/17 04:10 04/04/17 09:30 White Blood Count 4.7 x10^3/uL (4.0-11.0) Red Blood Count 3.11 x10^6/uL (3.50-5.40) Hemoglobin 9.2 g/dL (12.0-15.5) Hematocrit 29.2 % (36.0-47.0) Mean Corpuscular Volume 94 fL (79-100) Mean Corpuscular Hemoglobin 30 pg (25-35) Mean Corpuscular Hemoglobin Concent 31 g/dL (31-37) Red Cell Distribution Width 15.1 % (11.5-14.5) Platelet Count 185 x10^3/uL (140-400) Neutrophils (%) (Auto) 48 % (31-73) Lymphocytes (%) (Auto) 33 % (24-48) Monocytes (%) (Auto) 16 % (0-9) Eosinophils (%) (Auto) 2 % (0-3) Basophils (%) (Auto) 1 % (0-3) Neutrophils # (Auto) 2.3 x10^3uL (1.8-7.7) Lymphocytes # (Auto) 1.6 x10^3/uL (1.0-4.8) Monocytes # (Auto) 0.7 x10^3/uL (0.0-1.1) Eosinophils # (Auto) 0.1 x10^3/uL (0.0-0.7) Basophils # (Auto) 0.0 x10^3/uL (0.0-0.2) Prothrombin Time 13.1 SEC (11.7-14.0) 13.6 SEC (11.7-14.0) Prothromb Time International Ratio 1.1 (0.8-1.1) 1.1 (0.8-1.1) Activated Partial Thromboplast Time 31 SEC (24-38) Sodium Level 139 mmol/L (136-145) Potassium Level 4.5 mmol/L (3.5-5.1) Chloride Level 104 mmol/L (98-107) Carbon Dioxide Level 25 mmol/L (21-32) Anion Gap 10 (6-14) Blood Urea Nitrogen 17 mg/dL (7-20) Creatinine 1.1 mg/dL (0.6-1.0) Estimated GFR (Cockcroft-Gault) 47.0 Glucose Level 93 mg/dL (70-99) Calcium Level 8.6 mg/dL (8.5-10.1) Total Bilirubin 0.4 mg/dL (0.2-1.0) Direct Bilirubin < 0.1 mg/dL (0.0-0.2) Aspartate Amino Transf (AST/SGOT) 23 U/L (15-37) Alanine Aminotransferase (ALT/SGPT) 16 U/L (14-59) Alkaline Phosphatase 328 U/L (46-116) Troponin I Quantitative < 0.017 ng/mL (0.000-0.055) < 0.017 ng/mL (0.000-0.055) < 0.017 ng/mL (0.000-0.055) CA-Ejs-W-Type Natriuretic Peptide 1040 pg/mL (0-449) Total Protein 8.5 g/dL (6.4-8.2) Albumin 3.8 g/dL (3.4-5.0) Lipase 94 U/L (73-393) Urine Collection Type Unknown Urine Color Yellow Urine Clarity Clear Urine pH 7.5 Urine Specific [place] 1.010 Urine Protein Negative mg/dL (NEG-TRACE) Urine Glucose (UA) Negative mg/dL (NEG) Urine Ketones (Stick) Negative mg/dL (NEG) Urine Blood Negative (NEG) Urine Nitrite Negative (NEG) Urine Bilirubin Negative (NEG) Urine Urobilinogen Dipstick 0.2 mg/dL (0.2 mg/dL) Urine Leukocyte Esterase Trace (NEG) Urine RBC 0 /HPF (0-2) Urine WBC 5-10 /HPF (0-4) Urine Squamous Epithelial Cells Few /LPF Urine Bacteria Few /HPF (0-FEW) Triglycerides Level 43 mg/dL (0-150) Cholesterol Level 179 mg/dL (0-200) LDL Cholesterol, Calculated 64 mg/dL (0-100) VLDL Cholesterol, Calculated 9 mg/dL (0-40) Non-HDL Cholesterol Calculated 73 mg/dL (0-129) HDL Cholesterol 106 mg/dL (40-60) Cholesterol/HDL Ratio 1.7 Heparin Anti-Xa Act, Unfractionated 0.10 IU/mL (0.30-0.70) Medications Current Medications Fentanyl Citrate (Fentanyl 2ml Vial) 25 mcg PRN Q15MIN PRN IV PAIN GREATER THAN 3/10; Start 04/03/17 at 22:15; Stop 04/04/17 at 22:14 Ondansetron HCl (Zofran) 4 mg PRN Q8HRS PRN IV NAUSEA/VOMITING; Start 04/04/17 at 02:15; Stop 04/05/17 at 02:14 Fentanyl Citrate (Fentanyl 2ml Vial) 25 mcg PRN Q1HR PRN IV PAIN; Start at 02:15; Stop 04/05/17 at 02:14 Acetaminophen (Tylenol) 650 mg PRN Q4HRS PRN PO FEVER; Start 04/04/17 at 02:15 ; Stop 04/05/17 at 02:14 Heparin Sodium (Porcine) (Heparin Sodium) 3,200 unit 1X ONCE IV Last administered on 04/04/17 03:18; Start 04/04/17 at 02:45; Stop 04/04/17 at 02:52 ; Status DC Heparin Sodium/ Dextrose 500 ml @ 0 mls/hr CONT PRN IV SEE I/O RECORD Last administered on 04/04/17 10:28; Start 04/04/17 at 02:45 Heparin Sodium (Porcine) (Heparin Sodium) 1,200 unit PRN Q6HRS PRN IV FOR UFH LEVEL LESS THAN 0.2; Start 04/04/17 at 02:45 Heparin Sodium (Porcine) (Heparin Sodium) 600 unit PRN Q6HRS PRN IV FOR UFH LEVEL 0.2 - 0.29; Start 04/04/17 at 02:45 Warfarin Sodium (Coumadin Per Pharmacy) 1 each PRN DAILY PRN MC PER PROTOCOL Last administered on 04/04/17 03:10; Start 04/04/17 at 03:00 Warfarin Sodium (Coumadin) 5 mg ONCE ONCE PO Last administered on 04/04/17 03 :31; Start 04/04/17 at 03:15; Stop 04/04/17 at 03:16; Status DC Info (Anti-Coagulation Monitoring By Pharmacy) 1 each PRN DAILY PRN MC SEE COMMENTS; Start 04/04/17 at 03:00 Amiodarone HCl (Cordarone) 100 mg DAILY PO Last administered on 04/04/17 11:27 ; Start 04/04/17 at 11:00 Fentanyl (Duragesic 50mcg/ Hr Patch) 1 patch Q72H TD Last administered on 10:45; Start 04/04/17 at 10:45 Acetaminophen/ Hydrocodone Bitart (Lortab 5/325) 1 tab Q6HRS PRN PO SEVERE PAIN ; Start 04/04/17 at 10:45 Phenytoin Sodium (Dilantin) 100 mg BID PO Last administered on 04/04/17 11:27 ; Start 04/04/17 at 11:00 Pantoprazole Sodium (Protonix) 40 mg DAILYAC PO Last administered on 04/04/17 11:27; Start 04/04/17 at 11:30 Famotidine (Pepcid) 40 mg QHS PO ; Start 04/04/17 at 21:00 Gabapentin (Neurontin) 100 mg DAILY PO Last administered on 04/04/17t 11:27; Start 04/04/17 at 11:30 Active Scripts Active Levaquin (Levofloxacin) 500 Mg Tablet 500 Mg PO Q48H 8 Days Reported Robaxin (Methocarbamol) 500 Mg Tablet 500 Mg PO QID Cymbalta (Duloxetine Hcl) 30 Mg Capsule.dr 30 Mg PO DAILY FENTANYL 50mcg/hr (Fentanyl) 1 Each Patch.td72 1 Patch TP Q3DAYS PRN Tamsulosin Hcl 0.4 Mg Cap.er.24h 2 Cap PO HS Phenytoin Sodium Extended 100 Mg Capsule 100 Mg PO BID Melatonin 5 Mg Tablet 5 Mg PO HS Gabapentin 100 Mg Capsule 2 Cap PO BID DURAGESIC 50mcg/hr (Fentanyl) 1 Each Patch.td72 1 Patch TD Q72H Famotidine 40 Mg Tablet 40 Mg PO HS Nexium Capsule (Esomeprazole Magnesium) 40 Mg Capsule.dr 1 Cap PO DAILY Pacerone (Amiodarone Hcl) 100 Mg Tablet 100 Mg PO DAILY Hydrocodone-Apap 5-325 (Hydrocodone Bit/Acetaminophen) 1 Each Tablet 2 Tab PO Q4HRS PRN Vitals/I & O Vital Sign - Last 24 Hours 04/03/17 04/03/17 04/04/17 04/04/17 21:20 22:50 01:45 02:15 Temp 98.5 98.5 Pulse 57 52 52 50 Resp 16 B/P (MAP) 169/79 (109) 137/65 (89) 146/73 (97) 142/67 (92) Pulse Ox 95 94 96 96 O2 Delivery Room Air 04/04/17 04/04/17 04/04/17 04/04/17 03:10 03:40 04:52 07:22 Temp 98.6 97.7 98.6 97.7 Pulse 54 58 70 Resp 18 16 B/P (MAP) 138/78 (98) 160/69 (99) 139/71 (93) Pulse Ox 95 97 97 O2 Delivery Room Air Room Air Room Air 04/04/17 04/04/17 04/04/17 04/04/17 08:00 10:45 10:46 11:27 Temp 97.5 97.5 Pulse 67 67 Resp 19 16 B/P (MAP) 116/48 (70) 116/48 Pulse Ox 95 95 O2 Delivery Room Air Room Air Room Air Intake and Output 04/04/17 04/04/17 04/05/17 15:00 23:00 07:00 Intake Total 100 ml Output Total 250 ml Balance -150 ml DAVID NOEL MD Apr 04, 2017 12:55
[2017-04-04 15:00] VITALS: BP 125/67
[2017-04-04] MEDS ORDERED: WARFARIN 3 MG TABLET. PO ONE (17:00)
--- NOTE | 2017-04-04 19:57 | PDOC ---
PULMONARY PROGRESS NOTES Vitals Vital Signs Date Time Temp Pulse Resp B/P (MAP) Pulse Ox O2 Delivery O2 Flow Rate FiO2 04/04/17 15:00 97.7 57 16 125/67 (86) 96 Room Air 97.7 General: Alert, No acute distress Lungs: Other Cardiovascular: S1 Abdomen: Soft Extremities: No Edema Labs Laboratory Tests Test 04/03/17 21:25 04/04/17 03:00 04/04/17 04:00 04/04/17 04:10 White Blood Count 4.7 x10^3/uL (4.0-11.0) Red Blood Count 3.11 x10^6/uL (3.50-5.40) Hemoglobin 9.2 g/dL (12.0-15.5) Hematocrit 29.2 % (36.0-47.0) Mean Corpuscular Volume 94 fL (79-100) Mean Corpuscular Hemoglobin 30 pg (25-35) Mean Corpuscular Hemoglobin Concent 31 g/dL (31-37) Red Cell Distribution Width 15.1 % (11.5-14.5) Platelet Count 185 x10^3/uL (140-400) Neutrophils (%) (Auto) 48 % (31-73) Lymphocytes (%) (Auto) 33 % (24-48) Monocytes (%) (Auto) 16 % (0-9) Eosinophils (%) (Auto) 2 % (0-3) Basophils (%) (Auto) 1 % (0-3) Neutrophils # (Auto) 2.3 x10^3uL (1.8-7.7) Lymphocytes # (Auto) 1.6 x10^3/uL (1.0-4.8) Monocytes # (Auto) 0.7 x10^3/uL (0.0-1.1) Eosinophils # (Auto) 0.1 x10^3/uL (0.0-0.7) Basophils # (Auto) 0.0 x10^3/uL (0.0-0.2) Prothrombin Time 13.1 SEC (11.7-14.0) Prothromb Time International Ratio 1.1 (0.8-1.1) Activated Partial Thromboplast Time 31 SEC (24-38) Sodium Level 139 mmol/L (136-145) Potassium Level 4.5 mmol/L (3.5-5.1) Chloride Level 104 mmol/L (98-107) Carbon Dioxide Level 25 mmol/L (21-32) Anion Gap 10 (6-14) Blood Urea Nitrogen 17 mg/dL (7-20) Creatinine 1.1 mg/dL (0.6-1.0) Estimated GFR (Cockcroft-Gault) 47.0 Glucose Level 93 mg/dL (70-99) Calcium Level 8.6 mg/dL (8.5-10.1) Total Bilirubin 0.4 mg/dL (0.2-1.0) Direct Bilirubin < 0.1 mg/dL (0.0-0.2) Aspartate Amino Transf (AST/SGOT) 23 U/L (15-37) Alanine Aminotransferase (ALT/SGPT) 16 U/L (14-59) Alkaline Phosphatase 328 U/L (46-116) Troponin I Quantitative < 0.017 ng/mL (0.000-0.055) < 0.017 ng/mL (0.000-0.055) RC-Zjw-C-Type Natriuretic Peptide 1040 pg/mL (0-449) Total Protein 8.5 g/dL (6.4-8.2) Albumin 3.8 g/dL (3.4-5.0) Lipase 94 U/L (73-393) Urine Collection Type Unknown Urine Color Yellow Urine Clarity Clear Urine pH 7.5 Urine Specific [place] 1.010 Urine Protein Negative mg/dL (NEG-TRACE) Urine Glucose (UA) Negative mg/dL (NEG) Urine Ketones (Stick) Negative mg/dL (NEG) Urine Blood Negative (NEG) Urine Nitrite Negative (NEG) Urine Bilirubin Negative (NEG) Urine Urobilinogen Dipstick 0.2 mg/dL (0.2 mg/dL) Urine Leukocyte Esterase Trace (NEG) Urine RBC 0 /HPF (0-2) Urine WBC 5-10 /HPF (0-4) Urine Squamous Epithelial Cells Few /LPF Urine Bacteria Few /HPF (0-FEW) Nasal Screen MRSA (PCR) Positive (Negative) Triglycerides Level 43 mg/dL (0-150) Cholesterol Level 179 mg/dL (0-200) LDL Cholesterol, Calculated 64 mg/dL (0-100) VLDL Cholesterol, Calculated 9 mg/dL (0-40) Non-HDL Cholesterol Calculated 73 mg/dL (0-129) HDL Cholesterol 106 mg/dL (40-60) Cholesterol/HDL Ratio 1.7 Test 04/04/17 09:30 04/04/17 16:55 Prothrombin Time 13.6 SEC (11.7-14.0) Prothromb Time International Ratio 1.1 (0.8-1.1) Heparin Anti-Xa Act, Unfractionated 0.10 IU/mL (0.30-0.70) 0.17 IU/mL (0.30-0.70) Troponin I Quantitative < 0.017 ng/mL (0.000-0.055) Laboratory Tests Test 04/03/17 21:25 04/04/17 03:00 04/04/17 04:00 04/04/17 04:10 White Blood Count 4.7 x10^3/uL (4.0-11.0) Red Blood Count 3.11 x10^6/uL (3.50-5.40) Hemoglobin 9.2 g/dL (12.0-15.5) Hematocrit 29.2 % (36.0-47.0) Mean Corpuscular Volume 94 fL (79-100) Mean Corpuscular Hemoglobin 30 pg (25-35) Mean Corpuscular Hemoglobin Concent 31 g/dL (31-37) Red Cell Distribution Width 15.1 % (11.5-14.5) Platelet Count 185 x10^3/uL (140-400) Neutrophils (%) (Auto) 48 % (31-73) Lymphocytes (%) (Auto) 33 % (24-48) Monocytes (%) (Auto) 16 % (0-9) Eosinophils (%) (Auto) 2 % (0-3) Basophils (%) (Auto) 1 % (0-3) Neutrophils # (Auto) 2.3 x10^3uL (1.8-7.7) Lymphocytes # (Auto) 1.6 x10^3/uL (1.0-4.8) Monocytes # (Auto) 0.7 x10^3/uL (0.0-1.1) Eosinophils # (Auto) 0.1 x10^3/uL (0.0-0.7) Basophils # (Auto) 0.0 x10^3/uL (0.0-0.2) Prothrombin Time 13.1 SEC (11.7-14.0) Prothromb Time International Ratio 1.1 (0.8-1.1) Activated Partial Thromboplast Time 31 SEC (24-38) Sodium Level 139 mmol/L (136-145) Potassium Level 4.5 mmol/L (3.5-5.1) Chloride Level 104 mmol/L (98-107) Carbon Dioxide Level 25 mmol/L (21-32) Anion Gap 10 (6-14) Blood Urea Nitrogen 17 mg/dL (7-20) Creatinine 1.1 mg/dL (0.6-1.0) Estimated GFR (Cockcroft-Gault) 47.0 Glucose Level 93 mg/dL (70-99) Calcium Level 8.6 mg/dL (8.5-10.1) Total Bilirubin 0.4 mg/dL (0.2-1.0) Direct Bilirubin < 0.1 mg/dL (0.0-0.2) Aspartate Amino Transf (AST/SGOT) 23 U/L (15-37) Alanine Aminotransferase (ALT/SGPT) 16 U/L (14-59) Alkaline Phosphatase 328 U/L (46-116) Troponin I Quantitative < 0.017 ng/mL (0.000-0.055) < 0.017 ng/mL (0.000-0.055) NA-Yxr-I-Type Natriuretic Peptide 1040 pg/mL (0-449) Total Protein 8.5 g/dL (6.4-8.2) Albumin 3.8 g/dL (3.4-5.0) Lipase 94 U/L (73-393) Urine Collection Type Unknown Urine Color Yellow Urine Clarity Clear Urine pH 7.5 Urine Specific [place] 1.010 Urine Protein Negative mg/dL (NEG-TRACE) Urine Glucose (UA) Negative mg/dL (NEG) Urine Ketones (Stick) Negative mg/dL (NEG) Urine Blood Negative (NEG) Urine Nitrite Negative (NEG) Urine Bilirubin Negative (NEG) Urine Urobilinogen Dipstick 0.2 mg/dL (0.2 mg/dL) Urine Leukocyte Esterase Trace (NEG) Urine RBC 0 /HPF (0-2) Urine WBC 5-10 /HPF (0-4) Urine Squamous Epithelial Cells Few /LPF Urine Bacteria Few /HPF (0-FEW) Nasal Screen MRSA (PCR) Positive (Negative) Triglycerides Level 43 mg/dL (0-150) Cholesterol Level 179 mg/dL (0-200) LDL Cholesterol, Calculated 64 mg/dL (0-100) VLDL Cholesterol, Calculated 9 mg/dL (0-40) Non-HDL Cholesterol Calculated 73 mg/dL (0-129) HDL Cholesterol 106 mg/dL (40-60) Cholesterol/HDL Ratio 1.7 Test 04/04/17 09:30 04/04/17 16:55 Prothrombin Time 13.6 SEC (11.7-14.0) Prothromb Time International Ratio 1.1 (0.8-1.1) Heparin Anti-Xa Act, Unfractionated 0.10 IU/mL (0.30-0.70) 0.17 IU/mL (0.30-0.70) Troponin I Quantitative < 0.017 ng/mL (0.000-0.055) Medications Active Scripts Medications Dose Route/Sig Max Daily Dose Days Date Category Levaquin (Levofloxacin) 500 Mg Tablet 500 Mg PO Q48H 8 06/24/16 Rx Robaxin (Methocarbamol) 500 Mg Tablet 500 Mg PO QID 06/19/16 Reported Cymbalta (Duloxetine Hcl) 30 Mg Capsule.dr 30 Mg PO DAILY 06/19/16 Reported FENTANYL 50mcg/hr (Fentanyl) 1 Each Patch.td72 1 Patch TP Q3DAYS PRN 06/19/16 Reported Tamsulosin Hcl 0.4 Mg Cap.er.24h 2 Cap PO HS 12/31/15 Reported Phenytoin Sodium Extended 100 Mg Capsule 100 Mg PO BID 12/31/15 Reported Melatonin 5 Mg Tablet 5 Mg PO HS 12/31/15 Reported Gabapentin 100 Mg Capsule 2 Cap PO BID 12/31/15 Reported DURAGESIC 50mcg/hr (Fentanyl) 1 Each Patch.td72 1 Patch TD Q72H 12/31/15 Reported Famotidine 40 Mg Tablet 40 Mg PO HS 12/31/15 Reported Nexium Capsule (Esomeprazole Magnesium) 40 Mg Capsule.dr 1 Cap PO DAILY 12/31/15 Reported Pacerone (Amiodarone Hcl) 100 Mg Tablet 100 Mg PO DAILY 12/31/15 Reported Hydrocodone-Apap 5-325 (Hydrocodone Bit/Acetaminophen) 1 Each Tablet 2 Tab PO Q4HRS PRN 12/31/15 Reported Impression . ACUTE PE NEGATIVE VENOUS DOPPLER CT OF CHEST REVEALING IVC FILTER IN PLACE CONTINUE THE SAME OK FOR BATHROOM PRIVILEGES WITH ASSISTANCE RENU MENON MD Apr 04, 2017 19:57
[2017-04-04 20:20] VITALS: BP 134/66
[2017-04-04] MEDS: FAMOTIDINE 20 MG TABLET. PO SCH (21:24)
--- NOTE | 2017-04-04 23:25 | CONS ---
DATE OF CONSULTATION: 04/04/2017 ATTENDING PHYSICIAN: Toni Castrejon M.D. CONSULTING PHYSICIAN: Renu Menon M.D. REASON FOR CONSULTATION: The patient seen in pulmonary consultation at the request of Dr. Castrejon for abnormal V/Q scan. HISTORY OF PRESENT ILLNESS: The patient is an 87-year-old that noticed some increasing shortness of breath several days prior to admission. She initially noticed some pleuritic type of pain. She also describes left-sided pain in the calf muscle, which then rolled to the right side. She noticed some increasing swelling, became more short of breath. She is very active despite her age. She uses oxygen on a p.r.n. basis and at bedtime. She denies any associated syncope or near syncopal episode. According to the patient, she has never had a previous clot. Upon further questioning, she also had one episode of hemoptysis approximately a week ago. She states that it went away, it was just a one-time deal. PAST MEDICAL HISTORY: Remarkable for hypertension; AFib; COPD; peripheral neuropathy; seizures; prior history of tobacco use, quit several years ago; colon cancer and anemia. Apparently, in the current documentation, there is a history of DVT, status post IVC filter placement, but the patient herself, who is relatively a good historian, could not confirm it. She has had previous colon resection and colectomy. ALLERGIES: SHE HAS MULTIPLE ALLERGIES. MEDICATIONS: Medication list from home was reviewed. REVIEW OF SYSTEMS: As indicated above, otherwise the 10-point system was reviewed and negative. PHYSICAL EXAMINATION: GENERAL: On examination, she was in no respiratory distress. VITAL SIGNS: Stable. O2 saturation was greater than 92%. HEENT: Eyes, the sclerae were nonicteric. NECK: Jugular venous distention was not elevated. No lymphadenopathy. CHEST: Full expansion. LUNGS: Adequate airway flow, with no wheezes. CARDIOVASCULAR EXAMINATION: Regular rate and rhythm with S1, S2, no S3. ABDOMEN: Soft, nontender and nondistended. EXTREMITIES: No clubbing, cyanosis or edema. Homans sign was positive. NEUROLOGIC: The patient was awake, alert, following commands. A detailed neuro exam was not performed. IMAGING: A V/Q scan was reviewed, high probability. Echocardiogram revealed no significant enlargement of the right ventricle. The pulmonary artery pressure was 38. LABORATORY DATA: White count was noted. Electrolytes were noted. BUN and creatinine normal. Troponin level was not elevated. IMPRESSION: 1. Acute respiratory distress with pleurisy secondary to acute bilateral pulmonary emboli. 2. Acute pulmonary emboli. 3. Negative venous Dopplers of the lower extremities, performed on 04/03. 4. 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 5. CT of the chest revealing IVC filter placement. PLAN: 1. Continue IV heparin. 2. The patient safe to have bathroom privileges with assistance. 3. We will discuss best option for oral anticoagulation with Dr. Castrejon. 4. P.r.n. oxygen. 5. 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 I do appreciate the privilege in sharing in the patient's care. RENU MENON MD DR: GODWIN/riley JOB#: [id number] / [id number]
[2017-04-04 23:50] VITALS: BP 135/61
[2017-04-05 02:08] LABS: BASO % 1 % (0-3); EOS % 3 % (0-3); HEMATOCRIT 25.4 % (36.0-47.0); HEMOGLOBIN 8.1 g/dL (12.0-15.5); LYMPH # 1.8 x10^3/uL (1.0-4.8); LYMPH % 36 % (24-48); MEAN CORPUSCULAR HEMOGLOBIN 29 pg (25-35); MEAN CORPUSCULAR HGB CONC 32 g/dL (31-37); MEAN CORPUSCULAR VOLUME 92 fL (79-100); MONO % 17 % (0-9); NEUT % 43 % (31-73); PLATELET COUNT 140 x10^3/uL (140-400); RED BLOOD COUNT 2.77 x10^6/uL (3.50-5.40); RED CELL DISTRIBUTION WIDTH 15.2 % (11.5-14.5); WHITE BLOOD COUNT 4.9 x10^3/uL (4.0-11.0)
[2017-04-05 02:18] LABS: CALCIUM 7.5 mg/dL (8.5-10.1); GFR 52.4; POTASSIUM 4.2 mmol/L (3.5-5.1)
[2017-04-05 02:46] LABS: INR 1.1 (0.8-1.1); PROTHROMBIN TIME PATIENT 13.6 SEC (11.7-14.0)
[2017-04-05 03:18] VITALS: BP 143/63
--- NOTE | 2017-04-05 04:31 | ACF ---
Admission Forms Criteria PULMONARY DISEASE GRG Clinical Indications for Admission to Inpatient Care ([place]/check or initial the applicable condition/criteria) Hospital admission is needed for appropriate care of the patient because of 1 or more of the following(1)(2): [ ]I. Impending or actual respiratory arrest. See Respiratory Failure GRG guideline for severe respiratory disease and long-term mechanical ventilation patients. (3)(4) (5) [ ]II. Severe airflow or ventilation abnormalities (not responsive to emergency and observation care treatment as appropriate) as indicated by 1 or more of the following (6)(7)(8)(9) : [ ]a) PCO2 greater than 42 mm Hg (5.6 kPa) and pH less than 7.35 (new) [ ]b) Documented PCO2 increased more than 5 mm Hg (0.7 kPa) from disease baseline [ ]c) Airflow measurements[A] less than 60% of previous best or predicted (eg, peak expiratory flow rate less than 300 L/min) despite intensive emergent treatment(B) [ ]d) Required respiratory treatments that are performable only in acute inpatient setting [X]III. Severe respiratory findings (not responsive to emergency and observation care treatment as appropriate) including 1 or more of the following(6)(9)(10): [X]a) Respiratory distress as indicated by ALL of the following(6)(11): [X]i) Patient with 1 or more of the following: [ X]1) Dyspnea (difficulty breathing) [ ]2) Tachypnea [ ]3) Abnormal breathing pattern (eg, chest retractions) [ ]4) Other evidence of difficulty breathing [ X]ii) Evidence of respiratory compromise indicated by 1 or more of the following: [ ]1) Hypoxemia [ ]2) Altered mental status [X]3) Other evidence of respiratory compromise (eg, pulmonary edema on chest x-ray) [ ]b) Stridor [ ]c) Gross hemoptysis(12) [ ]d) Acute cyanosis [ ]IV. Chronic lung disease with severe deterioration (not responsive to emergency and observation care treatment as appropriate) as indicated by 1 or more of the following(7) (13): [ ]a) SaO2 5% below baseline in patient with chronic hypoxemia [ ]b) New requirement for supplemental oxygen to keep SaO2 at baseline or acceptable level [ ]c) Required supplemental oxygen performable only in acute inpatient setting [ ]d) Severe airflow or ventilation abnormalities [ ]e) Previouslymobile patient unable to walk between rooms [ ]f) Inability to eat or sleep due to dyspnea [ ]g) Altered mental status that is severe or persistent [ ]V. Empyema or lung abscess(14)(15) [ ]Vl. Severe atelectasis or lung collapse(16)(17) [ ]Terence. Tuberculosis requiring inpatient treatment as indicated by 1 or more of the following(18)(19)(20)(21): [ ]a) Diagnosis suspected (eg, symptomatic patient from endemic area or in high-risk population, with abnormal chest imaging) and cannot be ruled out within observation care timeframe (ie, sputum analysis, nucleic acid amplification techniques not rapidly available or not diagnostic) [ ]b) Severely symptomatic patient (eg, Hypoxemia, Hemodynamic instability, Tachypnea) [ ]c) Vbszn-[id number] infection suspected in newly diagnosed patient (eg, treatment regimen may require near-term adjustment) [ ]d) Newly diagnosed patient at high-risk of short-term deterioration (eg, HIV positive, frail, immunocompromised, chronic lung disease) [ ]e) High infectivity suspected (eg, laryngeal disease, cavitary pulmonary lesions, ongoing positivity of sputum) and 1 or more of the following: [ ]i) Unexposed household contacts at high risk (eg, immunocompromised, elderly, infants, chronic lung disease) [ ]ii) Patient unable or unwilling to avoid exposing others (eg, significant psychiatric disease, substance abuse, developmental disability) [ ]f) Complication of tuberculosis requiring inpatient treatment (eg , constrictive pericarditis, tubercular meningitis) [ ]g) Hospitalization mandated by public health authority (eg, patient continually noncompliant with directly observed therapy) [ ]VIII. High-risk pulmonary infection as indicated by 1 or more of the following(22)(23)(24)(25): [ ]a) Temperature less than 95 degrees F (35 degrees C) or greater than 103.1 degrees F (39.5 degrees C) [ ]b) Hemodynamic instability [ ]c) Immunocompromised patient (eg, AIDS, post transplant, neutropenic)(26)(27) [ ]d) History of severe COPD(28) [ ]e) History of severely symptomatic congestive heart failure(29) [ ]f) Other high-risk comorbidity (eg, poorly controlled diabetes, cirrhosis, chronic renal insufficiency) [ ]g) Hypoxemia [ ]h) severe stridor (30) [ ]i) Outpatient, observation, or recovery facility therapy has failed, is not appropriate, or is not feasible. [ ]IX. Complications of tracheostomy that remains after emergency or observation level care(31)(32)(33)(34) [ ]X. Respiratory complications of organ transplant (eg, rejection, respiratory failure, respiratory infection)(27) [ ]XI. Severe pulmonary arterial hypertension or pulmonary vascular disease requiring inpatient care indicated by 1 or more of the following(35)(36)(37)(38): [ ]a) Initiation or change of vasodilators (IV, subcutaneous, or inhaled) or other vasoactive medications needed [ ]b) IV anticoagulation needed (eg, immediate anticoagulation necessary, alternatives not appropriate) [ ]c) Arterial or pulmonary artery catheter monitoring needed due to infusion or other treatment [ ]XII. Cystic fibrosis requiring inpatient care as indicated by 1 or more of the following(39)(40): [ ]a) Severe exacerbation that does not respond to intensified home therapy(41) [ ]b) Severe exacerbation with patient unable to perform prescribed treatments at home [ ]c) Pneumonia [ ]d) Pneumothorax(42) [ ]e) Atelectasis [ ]f) Hemoptysis(43) [ ]XIII. Bronchiectasis requiring inpatient care as indicated by 1 or more of the following(44)(45): [ ]a) Respiratory distress [ ]b) Severe exacerbation and outpatient or observation care therapy has failed, is not appropriate, or is not feasible. [ ]XIV. Sarcoidosis requiring inpatient care as indicated by 1 or more of the following(46)(47)(48): [ ]a) Respiratory distress [ ]b) Cardiac involvement with arrhythmia(49) [ ]c) Outpatient or observation care therapy has failed, is not appropriate, or is not feasible. [ ]XV. Intestitial lung disease requiring inpatient care as indicated by 1 or more of the following(50)(51): [ ]a) Respiratory distress [ ]b) Severe exacerbation and outpatient or observation care therapy has failed, is not appropriate, or is not feasible [ ]XVI. Allergic pneumonitis requiring inpatient care as indicated by 1 or more of the following(52): [ ]a) Respiratory distress [ ]b) Acute eosinophilic pneumonia [ ]c) [place] with cardiac involvement [ ]d) Outpatient or observation care therapy has failed, is not appropriate, or is not feasible [ ]XVIl. Severe right heart failure requiring inpatient care as indicated by 1 or more of the following(35)(53)(54): [ ]a) Respiratory distress [ ]b) Debilitating anasarca that remains after emergency or observation level care (eg, tissue [ ]c) breakdown with severe infection, inability to void due to edema) [C](41)(42)(43)(44) [ ]d) Hemodynamic instability [ ]e) Syncope [ ]f) Angina that requires inpatient care (eg, not treatable in emergency or observation level of care) [ ]g) Increasing organ failure (eg, liver congestion with significant and worsening or new elevation of transaminases) [ ]XVIll. Injury requiring inpatient care (medical) as indicated by 1 or more of the following(59)(60)(61) [ ]a) Significant inhalation injury (eg, smoke inhalation, other toxic inhalation)(62)(63)(64) [ ]b) Airway obstruction that remains or is unstable after emergency or observation level care(65)(66) [ ]c) Severe pain requiring acute inpatient management [ ]d) Lung contusion(67) [ ]e) Flail chest(68) [ ]f) Bronchial tree injury [ ]g) Air or fat emboli [ ]h) Other injury not treatable in emergency or observation level care (eg, hemothorax)(55) [ ]XlX. Pulmonary hemorrhage or significant hemoptysis(12)(43)(69) [ ]XXl. Complications of transplanted lung indicated by 1 or more of the following(70)(71) [ ]a) Acute graft rejection requiring inpatient management (eg, intravenous immunosuppression)(72)(73)(74) [ ]b) Failure of transplant lung as indicated by 1 or more of the following(75)(76): [ ]i) Anastomotic leak [ ]ii) Airway ischemia or necrosis [ ]iii) Airway fistula [ ]iv) Obstructing granulation tissue requiring intervention [ ]v) Bronchial stenosis or stricture requiring intervention [ ]vi) Tracheobronchomalacia requiring intervention [ ]vii) Severe airflow or ventilation abnormalities [ ]viii) Severe respiratory findings [ ]c) Infection requiring inpatient management (eg, Hemodynamic instability, need for intravenous antimicrobial treatment)(77)(78)(79)(80)(81)(82 [ ]d) Other complication of transplanted lung (eg, obliterative bronchiolitis, plastic bronchitis, thrombotic microangiopathy, constrictive pericarditis) requiring inpatient management(83)(84)(85)(86)(87) [ ]XXll. Inpatient palliative care needed.[D](88)(89)(90)(91) [ ]XXlll. Pulmonary Disease condition, symptom, or finding for which emergency and observation care have failed or are not considered appropriate. The original [facility] [employer] content created by [employer] has been revised. The portions of the content which have been revised are identified through the use of italic text, and [facility] [employer] has neither reviewed nor approved the modified material. All other unmodified content is copyright [facility] Only. Please see references footnoted in the original [facility] [employer] edition 2014 Admission Criteria Met?: Yes JOLEEN WALTON Apr 05, 2017 04:31
[2017-04-05 05:22] LABS: PLT ESTIMATE ADEQUATE (ADEQUATE)
[2017-04-05 07:00] VITALS: BP 133/67
[2017-04-05] MEDS: AMIODARONE HCL 100 MG TABLET PO SCH (08:52)
[2017-04-05] MEDS: GABAPENTIN 100 MG CAPSULE. PO SCH (08:53)
[2017-04-05] MEDS: PHENYTOIN SODIUM EXTENDED 100 MG CAPSULE PO SCH ×2 (08:53→22:10)
[2017-04-05] MEDS: PANTOPRAZOLE 40 MG TABLET.DR. PO SCH (08:53)
--- NOTE | 2017-04-05 09:14 | PDOC ---
PULMONARY PROGRESS NOTES Subjective PT FEEL LESS SOA LESS PAIN IN LEGS Vitals Vital Signs Date Time Temp Pulse Resp B/P (MAP) Pulse Ox O2 Delivery O2 Flow Rate FiO2 04/05/17 08:52 58 141/62 04/05/17 07:00 97.5 16 95 Room Air 97.5 General: Alert, No acute distress Lungs: Crackles Cardiovascular: S1, S2 Abdomen: Soft, Non-tender Neuro Exam: Alert Extremities: No Edema Skin: Warm Labs Laboratory Tests Test 04/03/17 21:25 04/04/17 03:00 04/04/17 04:00 04/04/17 04:10 White Blood Count 4.7 x10^3/uL (4.0-11.0) Red Blood Count 3.11 x10^6/uL (3.50-5.40) Hemoglobin 9.2 g/dL (12.0-15.5) Hematocrit 29.2 % (36.0-47.0) Mean Corpuscular Volume 94 fL (79-100) Mean Corpuscular Hemoglobin 30 pg (25-35) Mean Corpuscular Hemoglobin Concent 31 g/dL (31-37) Red Cell Distribution Width 15.1 % (11.5-14.5) Platelet Count 185 x10^3/uL (140-400) Neutrophils (%) (Auto) 48 % (31-73) Lymphocytes (%) (Auto) 33 % (24-48) Monocytes (%) (Auto) 16 % (0-9) Eosinophils (%) (Auto) 2 % (0-3) Basophils (%) (Auto) 1 % (0-3) Neutrophils # (Auto) 2.3 x10^3uL (1.8-7.7) Lymphocytes # (Auto) 1.6 x10^3/uL (1.0-4.8) Monocytes # (Auto) 0.7 x10^3/uL (0.0-1.1) Eosinophils # (Auto) 0.1 x10^3/uL (0.0-0.7) Basophils # (Auto) 0.0 x10^3/uL (0.0-0.2) Prothrombin Time 13.1 SEC (11.7-14.0) Prothromb Time International Ratio 1.1 (0.8-1.1) Activated Partial Thromboplast Time 31 SEC (24-38) Sodium Level 139 mmol/L (136-145) Potassium Level 4.5 mmol/L (3.5-5.1) Chloride Level 104 mmol/L (98-107) Carbon Dioxide Level 25 mmol/L (21-32) Anion Gap 10 (6-14) Blood Urea Nitrogen 17 mg/dL (7-20) Creatinine 1.1 mg/dL (0.6-1.0) Estimated GFR (Cockcroft-Gault) 47.0 Glucose Level 93 mg/dL (70-99) Calcium Level 8.6 mg/dL (8.5-10.1) Total Bilirubin 0.4 mg/dL (0.2-1.0) Direct Bilirubin < 0.1 mg/dL (0.0-0.2) Aspartate Amino Transf (AST/SGOT) 23 U/L (15-37) Alanine Aminotransferase (ALT/SGPT) 16 U/L (14-59) Alkaline Phosphatase 328 U/L (46-116) Troponin I Quantitative < 0.017 ng/mL (0.000-0.055) < 0.017 ng/mL (0.000-0.055) XD-Cwh-O-Type Natriuretic Peptide 1040 pg/mL (0-449) Total Protein 8.5 g/dL (6.4-8.2) Albumin 3.8 g/dL (3.4-5.0) Lipase 94 U/L (73-393) Urine Collection Type Unknown Urine Color Yellow Urine Clarity Clear Urine pH 7.5 Urine Specific [place] 1.010 Urine Protein Negative mg/dL (NEG-TRACE) Urine Glucose (UA) Negative mg/dL (NEG) Urine Ketones (Stick) Negative mg/dL (NEG) Urine Blood Negative (NEG) Urine Nitrite Negative (NEG) Urine Bilirubin Negative (NEG) Urine Urobilinogen Dipstick 0.2 mg/dL (0.2 mg/dL) Urine Leukocyte Esterase Trace (NEG) Urine RBC 0 /HPF (0-2) Urine WBC 5-10 /HPF (0-4) Urine Squamous Epithelial Cells Few /LPF Urine Bacteria Few /HPF (0-FEW) Nasal Screen MRSA (PCR) Positive (Negative) Triglycerides Level 43 mg/dL (0-150) Cholesterol Level 179 mg/dL (0-200) LDL Cholesterol, Calculated 64 mg/dL (0-100) VLDL Cholesterol, Calculated 9 mg/dL (0-40) Non-HDL Cholesterol Calculated 73 mg/dL (0-129) HDL Cholesterol 106 mg/dL (40-60) Cholesterol/HDL Ratio 1.7 Test 04/04/17 09:30 04/04/17 16:55 04/05/17 01:50 Prothrombin Time 13.6 SEC (11.7-14.0) 13.6 SEC (11.7-14.0) Prothromb Time International Ratio 1.1 (0.8-1.1) 1.1 (0.8-1.1) Heparin Anti-Xa Act, Unfractionated 0.10 IU/mL (0.30-0.70) 0.17 IU/mL (0.30-0.70) 0.35 IU/mL (0.30-0.70) Troponin I Quantitative < 0.017 ng/mL (0.000-0.055) White Blood Count 4.9 x10^3/uL (4.0-11.0) Red Blood Count 2.77 x10^6/uL (3.50-5.40) Hemoglobin 8.1 g/dL (12.0-15.5) Hematocrit 25.4 % (36.0-47.0) Mean Corpuscular Volume 92 fL (79-100) Mean Corpuscular Hemoglobin 29 pg (25-35) Mean Corpuscular Hemoglobin Concent 32 g/dL (31-37) Red Cell Distribution Width 15.2 % (11.5-14.5) Platelet Count 140 x10^3/uL (140-400) Neutrophils (%) (Auto) 43 % (31-73) Lymphocytes (%) (Auto) 36 % (24-48) Monocytes (%) (Auto) 17 % (0-9) Eosinophils (%) (Auto) 3 % (0-3) Basophils (%) (Auto) 1 % (0-3) Neutrophils # (Auto) 2.1 x10^3uL (1.8-7.7) Lymphocytes # (Auto) 1.8 x10^3/uL (1.0-4.8) Monocytes # (Auto) 0.8 x10^3/uL (0.0-1.1) Eosinophils # (Auto) 0.1 x10^3/uL (0.0-0.7) Basophils # (Auto) 0.0 x10^3/uL (0.0-0.2) Platelet Estimate Adequate (ADEQUATE) Giant Platelets Occ Sodium Level 141 mmol/L (136-145) Potassium Level 4.2 mmol/L (3.5-5.1) Chloride Level 107 mmol/L (98-107) Carbon Dioxide Level 26 mmol/L (21-32) Anion Gap 8 (6-14) Blood Urea Nitrogen 20 mg/dL (7-20) Creatinine 1.0 mg/dL (0.6-1.0) Estimated GFR (Cockcroft-Gault) 52.4 Glucose Level 87 mg/dL (70-99) Calcium Level 7.5 mg/dL (8.5-10.1) Laboratory Tests Test 04/04/17 09:30 04/04/17 16:55 04/05/17 01:50 Prothrombin Time 13.6 SEC (11.7-14.0) 13.6 SEC (11.7-14.0) Prothromb Time International Ratio 1.1 (0.8-1.1) 1.1 (0.8-1.1) Heparin Anti-Xa Act, Unfractionated 0.10 IU/mL (0.30-0.70) 0.17 IU/mL (0.30-0.70) 0.35 IU/mL (0.30-0.70) Troponin I Quantitative < 0.017 ng/mL (0.000-0.055) White Blood Count 4.9 x10^3/uL (4.0-11.0) Red Blood Count 2.77 x10^6/uL (3.50-5.40) Hemoglobin 8.1 g/dL (12.0-15.5) Hematocrit 25.4 % (36.0-47.0) Mean Corpuscular Volume 92 fL (79-100) Mean Corpuscular Hemoglobin 29 pg (25-35) Mean Corpuscular Hemoglobin Concent 32 g/dL (31-37) Red Cell Distribution Width 15.2 % (11.5-14.5) Platelet Count 140 x10^3/uL (140-400) Neutrophils (%) (Auto) 43 % (31-73) Lymphocytes (%) (Auto) 36 % (24-48) Monocytes (%) (Auto) 17 % (0-9) Eosinophils (%) (Auto) 3 % (0-3) Basophils (%) (Auto) 1 % (0-3) Neutrophils # (Auto) 2.1 x10^3uL (1.8-7.7) Lymphocytes # (Auto) 1.8 x10^3/uL (1.0-4.8) Monocytes # (Auto) 0.8 x10^3/uL (0.0-1.1) Eosinophils # (Auto) 0.1 x10^3/uL (0.0-0.7) Basophils # (Auto) 0.0 x10^3/uL (0.0-0.2) Platelet Estimate Adequate (ADEQUATE) Giant Platelets Occ Sodium Level 141 mmol/L (136-145) Potassium Level 4.2 mmol/L (3.5-5.1) Chloride Level 107 mmol/L (98-107) Carbon Dioxide Level 26 mmol/L (21-32) Anion Gap 8 (6-14) Blood Urea Nitrogen 20 mg/dL (7-20) Creatinine 1.0 mg/dL (0.6-1.0) Estimated GFR (Cockcroft-Gault) 52.4 Glucose Level 87 mg/dL (70-99) Calcium Level 7.5 mg/dL (8.5-10.1) Medications Active Scripts Medications Dose Route/Sig Max Daily Dose Days Date Category Levaquin (Levofloxacin) 500 Mg Tablet 500 Mg PO Q48H 8 06/24/16 Rx Robaxin (Methocarbamol) 500 Mg Tablet 500 Mg PO QID 06/19/16 Reported Cymbalta (Duloxetine Hcl) 30 Mg Capsule.dr 30 Mg PO DAILY 06/19/16 Reported FENTANYL 50mcg/hr (Fentanyl) 1 Each Patch.td72 1 Patch TP Q3DAYS PRN 06/19/16 Reported Tamsulosin Hcl 0.4 Mg Cap.er.24h 2 Cap PO HS 12/31/15 Reported Phenytoin Sodium Extended 100 Mg Capsule 100 Mg PO BID 12/31/15 Reported Melatonin 5 Mg Tablet 5 Mg PO HS 12/31/15 Reported Gabapentin 100 Mg Capsule 2 Cap PO BID 12/31/15 Reported DURAGESIC 50mcg/hr (Fentanyl) 1 Each Patch.td72 1 Patch TD Q72H 6/10/16 Reported Famotidine 40 Mg Tablet 40 Mg PO HS 12/31/15 Reported Nexium Capsule (Esomeprazole Magnesium) 40 Mg Capsule. 1 Cap PO DAILY 12/31/15 Reported Pacerone (Amiodarone Hcl) 100 Mg Tablet 100 Mg PO DAILY 12/31/15 Reported Hydrocodone-Apap 5-325 (Hydrocodone Bit/Acetaminophen) 1 Each Tablet 2 Tab PO Q4HRS PRN 12/31/15 Reported Impression . 1. Acute respiratory distress with pleurisy secondary to acute bilateral pulmonary emboli. 2. Acute pulmonary emboli. 3. Negative venous Dopplers of the lower extremities, performed on 04/03. 4. 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 5. CT of the chest revealing IVC filter placement. Plan . D/W DR NOEL H[employer]IO[employer] PROFESSOR WILL ADD ELLIQUIS AND D/C HOME IN AM 1. Continue IV heparin. 2. The patient safe to have bathroom privileges with assistance. 3. FOLLOW UP WITH DR NOEL 4. P.r.n. oxygen. 5. 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 RENU MENON MD Apr 05, 2017 09:14
[2017-04-05 11:00] VITALS: BP 146/71
[2017-04-05] MEDS: ANTI-COAG MONITOR BY PHARMACY. MC PRN (12:39)
--- NOTE | 2017-04-05 12:52 | PDOC ---
PROGRESS NOTES Subjective Subjective Pt awake and pleasant in conversation. Denies pain. States she has not had CP or SOB since her admission. Pt states she is eating and drinking well with good output. Pt states she is ready to return home. Objective Objective Pt awake and alert. VSS. Afebrile. Lungs CTA bilat. Resp even and unlabored. Pt on RA, not requiring supplemental O2. Heart with RRR. No murmurs. Abdomen soft, nondistended, and nontender. Vital Signs Date Time Temp Pulse Resp B/P (MAP) Pulse Ox O2 Delivery O2 Flow Rate FiO2 04/05/17 11:00 97.8 61 20 146/71 (96) 94 Room Air 97.8 Plan Plan of Care 1) Chest pain - CT unchanged from prev scan: aneurysmal dilation of ascending thoracic aorta without dissection -bilat venous US negative for DVT -VQ scan with high suspicion of PE. -Heparin initiated -Coumadin initiated per protocol -CXR without congestion. -Cardiology consulted -Trip negative x2 -Echo tomorrow -Pulmonology consulted -plans to change pt from Coumadin to Eliquis today. Hopeful for Dc home tomorrow following initiation of Eliquis. SW consulted to arrange HH for PT/OT and hopeful home eval due to fall risks and anticoagulation therapy. Comment Review of Relevant I have reviewed the following items nurys (where applicable) has been applied. Labs Laboratory Tests Test 04/03/17 21:25 04/04/17 03:00 04/04/17 04:00 04/04/17 04:10 White Blood Count 4.7 x10^3/uL (4.0-11.0) Red Blood Count 3.11 x10^6/uL (3.50-5.40) Hemoglobin 9.2 g/dL (12.0-15.5) Hematocrit 29.2 % (36.0-47.0) Mean Corpuscular Volume 94 fL (79-100) Mean Corpuscular Hemoglobin 30 pg (25-35) Mean Corpuscular Hemoglobin Concent 31 g/dL (31-37) Red Cell Distribution Width 15.1 % (11.5-14.5) Platelet Count 185 x10^3/uL (140-400) Neutrophils (%) (Auto) 48 % (31-73) Lymphocytes (%) (Auto) 33 % (24-48) Monocytes (%) (Auto) 16 % (0-9) Eosinophils (%) (Auto) 2 % (0-3) Basophils (%) (Auto) 1 % (0-3) Neutrophils # (Auto) 2.3 x10^3uL (1.8-7.7) Lymphocytes # (Auto) 1.6 x10^3/uL (1.0-4.8) Monocytes # (Auto) 0.7 x10^3/uL (0.0-1.1) Eosinophils # (Auto) 0.1 x10^3/uL (0.0-0.7) Basophils # (Auto) 0.0 x10^3/uL (0.0-0.2) Prothrombin Time 13.1 SEC (11.7-14.0) Prothromb Time International Ratio 1.1 (0.8-1.1) Activated Partial Thromboplast Time 31 SEC (24-38) Sodium Level 139 mmol/L (136-145) Potassium Level 4.5 mmol/L (3.5-5.1) Chloride Level 104 mmol/L (98-107) Carbon Dioxide Level 25 mmol/L (21-32) Anion Gap 10 (6-14) Blood Urea Nitrogen 17 mg/dL (7-20) Creatinine 1.1 mg/dL (0.6-1.0) Estimated GFR (Cockcroft-Gault) 47.0 Glucose Level 93 mg/dL (70-99) Calcium Level 8.6 mg/dL (8.5-10.1) Total Bilirubin 0.4 mg/dL (0.2-1.0) Direct Bilirubin < 0.1 mg/dL (0.0-0.2) Aspartate Amino Transf (AST/SGOT) 23 U/L (15-37) Alanine Aminotransferase (ALT/SGPT) 16 U/L (14-59) Alkaline Phosphatase 328 U/L (46-116) Troponin I Quantitative < 0.017 ng/mL (0.000-0.055) < 0.017 ng/mL (0.000-0.055) LM-Elw-F-Type Natriuretic Peptide 1040 pg/mL (0-449) Total Protein 8.5 g/dL (6.4-8.2) Albumin 3.8 g/dL (3.4-5.0) Lipase 94 U/L (73-393) Urine Collection Type Unknown Urine Color Yellow Urine Clarity Clear Urine pH 7.5 Urine Specific [place] 1.010 Urine Protein Negative mg/dL (NEG-TRACE) Urine Glucose (UA) Negative mg/dL (NEG) Urine Ketones (Stick) Negative mg/dL (NEG) Urine Blood Negative (NEG) Urine Nitrite Negative (NEG) Urine Bilirubin Negative (NEG) Urine Urobilinogen Dipstick 0.2 mg/dL (0.2 mg/dL) Urine Leukocyte Esterase Trace (NEG) Urine RBC 0 /HPF (0-2) Urine WBC 5-10 /HPF (0-4) Urine Squamous Epithelial Cells Few /LPF Urine Bacteria Few /HPF (0-FEW) Nasal Screen MRSA (PCR) Positive (Negative) Triglycerides Level 43 mg/dL (0-150) Cholesterol Level 179 mg/dL (0-200) LDL Cholesterol, Calculated 64 mg/dL (0-100) VLDL Cholesterol, Calculated 9 mg/dL (0-40) Non-HDL Cholesterol Calculated 73 mg/dL (0-129) HDL Cholesterol 106 mg/dL (40-60) Cholesterol/HDL Ratio 1.7 Test 04/04/17 09:30 04/04/17 16:55 04/05/17 01:50 04/05/17 07:50 Prothrombin Time 13.6 SEC (11.7-14.0) 13.6 SEC (11.7-14.0) Prothromb Time International Ratio 1.1 (0.8-1.1) 1.1 (0.8-1.1) Heparin Anti-Xa Act, Unfractionated 0.10 IU/mL (0.30-0.70) 0.17 IU/mL (0.30-0.70) 0.35 IU/mL (0.30-0.70) 0.22 IU/mL (0.30-0.70) Troponin I Quantitative < 0.017 ng/mL (0.000-0.055) White Blood Count 4.9 x10^3/uL (4.0-11.0) Red Blood Count 2.77 x10^6/uL (3.50-5.40) Hemoglobin 8.1 g/dL (12.0-15.5) Hematocrit 25.4 % (36.0-47.0) Mean Corpuscular Volume 92 fL (79-100) Mean Corpuscular Hemoglobin 29 pg (25-35) Mean Corpuscular Hemoglobin Concent 32 g/dL (31-37) Red Cell Distribution Width 15.2 % (11.5-14.5) Platelet Count 140 x10^3/uL (140-400) Neutrophils (%) (Auto) 43 % (31-73) Lymphocytes (%) (Auto) 36 % (24-48) Monocytes (%) (Auto) 17 % (0-9) Eosinophils (%) (Auto) 3 % (0-3) Basophils (%) (Auto) 1 % (0-3) Neutrophils # (Auto) 2.1 x10^3uL (1.8-7.7) Lymphocytes # (Auto) 1.8 x10^3/uL (1.0-4.8) Monocytes # (Auto) 0.8 x10^3/uL (0.0-1.1) Eosinophils # (Auto) 0.1 x10^3/uL (0.0-0.7) Basophils # (Auto) 0.0 x10^3/uL (0.0-0.2) Platelet Estimate Adequate (ADEQUATE) Giant Platelets Occ Sodium Level 141 mmol/L (136-145) Potassium Level 4.2 mmol/L (3.5-5.1) Chloride Level 107 mmol/L (98-107) Carbon Dioxide Level 26 mmol/L (21-32) Anion Gap 8 (6-14) Blood Urea Nitrogen 20 mg/dL (7-20) Creatinine 1.0 mg/dL (0.6-1.0) Estimated GFR (Cockcroft-Gault) 52.4 Glucose Level 87 mg/dL (70-99) Calcium Level 7.5 mg/dL (8.5-10.1) Laboratory Tests Test 04/04/17 16:55 04/05/17 01:50 04/05/17 07:50 Heparin Anti-Xa Act, Unfractionated 0.17 IU/mL (0.30-0.70) 0.35 IU/mL (0.30-0.70) 0.22 IU/mL (0.30-0.70) White Blood Count 4.9 x10^3/uL (4.0-11.0) Red Blood Count 2.77 x10^6/uL (3.50-5.40) Hemoglobin 8.1 g/dL (12.0-15.5) Hematocrit 25.4 % (36.0-47.0) Mean Corpuscular Volume 92 fL (79-100) Mean Corpuscular Hemoglobin 29 pg (25-35) Mean Corpuscular Hemoglobin Concent 32 g/dL (31-37) Red Cell Distribution Width 15.2 % (11.5-14.5) Platelet Count 140 x10^3/uL (140-400) Neutrophils (%) (Auto) 43 % (31-73) Lymphocytes (%) (Auto) 36 % (24-48) Monocytes (%) (Auto) 17 % (0-9) Eosinophils (%) (Auto) 3 % (0-3) Basophils (%) (Auto) 1 % (0-3) Neutrophils # (Auto) 2.1 x10^3uL (1.8-7.7) Lymphocytes # (Auto) 1.8 x10^3/uL (1.0-4.8) Monocytes # (Auto) 0.8 x10^3/uL (0.0-1.1) Eosinophils # (Auto) 0.1 x10^3/uL (0.0-0.7) Basophils # (Auto) 0.0 x10^3/uL (0.0-0.2) Platelet Estimate Adequate (ADEQUATE) Giant Platelets Occ Prothrombin Time 13.6 SEC (11.7-14.0) Prothromb Time International Ratio 1.1 (0.8-1.1) Sodium Level 141 mmol/L (136-145) Potassium Level 4.2 mmol/L (3.5-5.1) Chloride Level 107 mmol/L (98-107) Carbon Dioxide Level 26 mmol/L (21-32) Anion Gap 8 (6-14) Blood Urea Nitrogen 20 mg/dL (7-20) Creatinine 1.0 mg/dL (0.6-1.0) Estimated GFR (Cockcroft-Gault) 52.4 Glucose Level 87 mg/dL (70-99) Calcium Level 7.5 mg/dL (8.5-10.1) Medications Current Medications Fentanyl Citrate (Fentanyl 2ml Vial) 25 mcg PRN Q15MIN PRN IV PAIN GREATER THAN 3/10; Start 04/03/17 at 22:15; Stop 04/04/17 at 22:14; Status DC Ondansetron HCl (Zofran) 4 mg PRN Q8HRS PRN IV NAUSEA/VOMITING; Start 04/04/17 at 02:15; Stop 04/05/17 at 02:14; Status DC Fentanyl Citrate (Fentanyl 2ml Vial) 25 mcg PRN Q1HR PRN IV PAIN; Start at 02:15; Stop 04/05/17 at 02:14; Status DC Acetaminophen (Tylenol) 650 mg PRN Q4HRS PRN PO FEVER; Start 04/04/17 at 02:15 ; Stop 04/05/17 at 02:14; Status DC Heparin Sodium (Porcine) (Heparin Sodium) 3,200 unit 1X ONCE IV Last administered on 04/04/17 03:18; Start 04/04/17 at 02:45; Stop 04/04/17 at 02:52 ; Status DC Heparin Sodium/ Dextrose 500 ml @ 0 mls/hr CONT PRN IV SEE I/O RECORD Last administered on 04/04/17 10:28; Start 04/04/17 at 02:45 Heparin Sodium (Porcine) (Heparin Sodium) 1,200 unit PRN Q6HRS PRN IV FOR UFH LEVEL LESS THAN 0.2; Start 04/04/17 at 02:45 Heparin Sodium (Porcine) (Heparin Sodium) 600 unit PRN Q6HRS PRN IV FOR UFH LEVEL 0.2 - 0.29; Start 04/04/17 at 02:45 Warfarin Sodium (Coumadin Per Pharmacy) 1 each PRN DAILY PRN MC PER PROTOCOL Last administered on 04/05/17 12:35; Start 04/04/17 at 03:00 Warfarin Sodium (Coumadin) 5 mg ONCE ONCE PO Last administered on 04/04/17 03 :31; Start 04/04/17 at 03:15; Stop 04/04/17 at 03:16; Status DC Info (Anti-Coagulation Monitoring By Pharmacy) 1 each PRN DAILY PRN MC SEE COMMENTS Last administered on 04/05/17 12:39; Start 04/04/17 at 03:00 Amiodarone HCl (Cordarone) 100 mg DAILY PO Last administered on 04/05/17 08:52 ; Start 04/04/17 at 11:00 Fentanyl (Duragesic 50mcg/ Hr Patch) 1 patch Q72H TD Last administered on 10:45; Start 04/04/17 at 10:45 Acetaminophen/ Hydrocodone Bitart (Lortab 5/325) 1 tab Q6HRS PRN PO SEVERE PAIN ; Start 04/04/17 at 10:45 Phenytoin Sodium (Dilantin) 100 mg BID PO Last administered on 04/05/17 08:53 ; Start 04/04/17 at 11:00 Pantoprazole Sodium (Protonix) 40 mg DAILYAC PO Last administered on 04/05/17 08:53; Start 04/04/17 at 11:30 Famotidine (Pepcid) 40 mg QHS PO Last administered on 04/04/17 21:24; Start at 21:00 Gabapentin (Neurontin) 100 mg DAILY PO Last administered on 04/05/17 08:53; Start 04/04/17 at 11:30 Warfarin Sodium (Coumadin) 3 mg 1X WARF ONCE PO Last administered on 17:17; Start 04/04/17 at 17:00; Stop 04/04/17 at 17:01; Status DC Warfarin Sodium (Coumadin) 5 mg 1X WARF ONCE PO ; Start 04/05/17 at 16:00; Stop 04/05/17 at 16:01 Active Scripts Active Levaquin (Levofloxacin) 500 Mg Tablet 500 Mg PO Q48H 8 Days Reported Robaxin (Methocarbamol) 500 Mg Tablet 500 Mg PO QID Cymbalta (Duloxetine Hcl) 30 Mg Capsule. 30 Mg PO DAILY FENTANYL 50mcg/hr (Fentanyl) 1 Each Patch.td72 1 Patch TP Q3DAYS PRN Tamsulosin Hcl 0.4 Mg Cap.er.24h 2 Cap PO HS Phenytoin Sodium Extended 100 Mg Capsule 100 Mg PO BID Melatonin 5 Mg Tablet 5 Mg PO HS Gabapentin 100 Mg Capsule 2 Cap PO BID DURAGESIC 50mcg/hr (Fentanyl) 1 Each Patch.td72 1 Patch TD Q72H Famotidine 40 Mg Tablet 40 Mg PO HS Nexium Capsule (Esomeprazole Magnesium) 40 Mg Capsule. 1 Cap PO DAILY Pacerone (Amiodarone Hcl) 100 Mg Tablet 100 Mg PO DAILY Hydrocodone-Apap 5-325 (Hydrocodone Bit/Acetaminophen) 1 Each Tablet 2 Tab PO Q4HRS PRN Vitals/I & O Vital Sign - Last 24 Hours 04/04/17 04/04/17 04/04/17 04/04/17 14:45 15:00 20:15 20:20 Temp 97.7 97.7 97.7 97.7 Pulse 57 56 Resp 17 16 16 B/P (MAP) 125/67 (86) 134/66 (88) Pulse Ox 96 96 95 O2 Delivery Room Air Room Air Room Air Room Air 04/04/17 04/05/17 04/05/17 04/05/17 23:50 03:18 07:00 08:00 Temp 97.9 97.9 97.5 97.9 97.9 97.5 Pulse 50 53 50 Resp 18 16 16 B/P (MAP) 135/61 (85) 143/63 (89) 133/67 (89) Pulse Ox 97 94 95 O2 Delivery Room Air Room Air Room Air Room Air 04/05/17 04/05/17 08:52 11:00 Temp 97.8 97.8 Pulse 58 61 Resp 20 B/P (MAP) 141/62 146/71 (96) Pulse Ox 94 O2 Delivery Room Air DAVID NOEL MD Apr 05, 2017 12:52
[2017-04-05] MEDS: HEPARIN 25,000UTS/500ML PREMIX 500 ML IV PRN (13:44)
[2017-04-05 15:00] VITALS: BP 98/48
[2017-04-05] MEDS ORDERED: WARFARIN 5 MG TABLET. PO ONE (16:00)
[2017-04-05 19:20] VITALS: BP 121/68
[2017-04-05] MEDS: FAMOTIDINE 20 MG TABLET. PO SCH (21:00)
[2017-04-05] MEDS ORDERED: APIXABAN 2.5 MG TABLET. PO SCH (21:00)
[2017-04-05] MEDS: ENOXAPARIN 40 MG/0.4 ML SYRINGE. SQ SCH (22:10)
[2017-04-05 23:20] VITALS: BP 124/55
[2017-04-06 03:20] VITALS: BP 126/69
[2017-04-06 06:50] LABS: INR 1.3 (0.8-1.1); PROTHROMBIN TIME PATIENT 15.7 SEC (11.7-14.0)
[2017-04-06 07:00] VITALS: BP 111/53
[2017-04-06] MEDS: AMIODARONE HCL 100 MG TABLET PO SCH (07:51)
[2017-04-06] MEDS: PHENYTOIN SODIUM EXTENDED 100 MG CAPSULE PO SCH ×2 (07:52→20:18)
[2017-04-06] MEDS: PANTOPRAZOLE 40 MG TABLET.DR. PO SCH (07:52)
[2017-04-06] MEDS: GABAPENTIN 100 MG CAPSULE. PO SCH (07:52)
--- NOTE | 2017-04-06 10:24 | PDOC ---
PULMONARY PROGRESS NOTES Subjective PT FEEL LESS SOA LESS PAIN IN LEGS Vitals Vital Signs Date Time Temp Pulse Resp B/P (MAP) Pulse Ox O2 Delivery O2 Flow Rate FiO2 04/06/17 07:55 Room Air 04/06/17 07:51 51 111/53 04/06/17 07:00 97.8 16 95 97.8 General: Alert, No acute distress Lungs: Crackles Cardiovascular: S1, S2 Abdomen: Soft, Non-tender Neuro Exam: Alert Extremities: No Edema Skin: Warm Labs Laboratory Tests Test 04/04/17 16:55 04/05/17 01:50 04/05/17 07:50 04/05/17 15:50 Heparin Anti-Xa Act, Unfractionated 0.17 IU/mL (0.30-0.70) 0.35 IU/mL (0.30-0.70) 0.22 IU/mL (0.30-0.70) 0.44 IU/mL (0.30-0.70) White Blood Count 4.9 x10^3/uL (4.0-11.0) Red Blood Count 2.77 x10^6/uL (3.50-5.40) Hemoglobin 8.1 g/dL (12.0-15.5) Hematocrit 25.4 % (36.0-47.0) Mean Corpuscular Volume 92 fL (79-100) Mean Corpuscular Hemoglobin 29 pg (25-35) Mean Corpuscular Hemoglobin Concent 32 g/dL (31-37) Red Cell Distribution Width 15.2 % (11.5-14.5) Platelet Count 140 x10^3/uL (140-400) Neutrophils (%) (Auto) 43 % (31-73) Lymphocytes (%) (Auto) 36 % (24-48) Monocytes (%) (Auto) 17 % (0-9) Eosinophils (%) (Auto) 3 % (0-3) Basophils (%) (Auto) 1 % (0-3) Neutrophils # (Auto) 2.1 x10^3uL (1.8-7.7) Lymphocytes # (Auto) 1.8 x10^3/uL (1.0-4.8) Monocytes # (Auto) 0.8 x10^3/uL (0.0-1.1) Eosinophils # (Auto) 0.1 x10^3/uL (0.0-0.7) Basophils # (Auto) 0.0 x10^3/uL (0.0-0.2) Platelet Estimate Adequate (ADEQUATE) Giant Platelets Occ Prothrombin Time 13.6 SEC (11.7-14.0) Prothromb Time International Ratio 1.1 (0.8-1.1) Sodium Level 141 mmol/L (136-145) Potassium Level 4.2 mmol/L (3.5-5.1) Chloride Level 107 mmol/L (98-107) Carbon Dioxide Level 26 mmol/L (21-32) Anion Gap 8 (6-14) Blood Urea Nitrogen 20 mg/dL (7-20) Creatinine 1.0 mg/dL (0.6-1.0) Estimated GFR (Cockcroft-Gault) 52.4 Glucose Level 87 mg/dL (70-99) Calcium Level 7.5 mg/dL (8.5-10.1) Test 04/06/17 05:07 Prothrombin Time 15.7 SEC (11.7-14.0) Prothromb Time International Ratio 1.3 (0.8-1.1) Laboratory Tests Test 04/05/17 15:50 04/06/17 05:07 Heparin Anti-Xa Act, Unfractionated 0.44 IU/mL (0.30-0.70) Prothrombin Time 15.7 SEC (11.7-14.0) Prothromb Time International Ratio 1.3 (0.8-1.1) Medications Active Scripts Medications Dose Route/Sig Max Daily Dose Days Date Category Levaquin (Levofloxacin) 500 Mg Tablet 500 Mg PO Q48H 8 06/24/16 Rx Robaxin (Methocarbamol) 500 Mg Tablet 500 Mg PO QID 06/19/16 Reported Cymbalta (Duloxetine Hcl) 30 Mg Capsule.dr 30 Mg PO DAILY 06/19/16 Reported FENTANYL 50mcg/hr (Fentanyl) 1 Each Patch.td72 1 Patch TP Q3DAYS PRN 06/19/16 Reported Tamsulosin Hcl 0.4 Mg Cap.er.24h 2 Cap PO HS 12/31/15 Reported Phenytoin Sodium Extended 100 Mg Capsule 100 Mg PO BID 12/31/15 Reported Melatonin 5 Mg Tablet 5 Mg PO HS 12/31/15 Reported Gabapentin 100 Mg Capsule 2 Cap PO BID 12/31/15 Reported DURAGESIC 50mcg/hr (Fentanyl) 1 Each Patch.td72 1 Patch TD Q72H 12/31/15 Reported Famotidine 40 Mg Tablet 40 Mg PO HS 12/31/15 Reported Nexium Capsule (Esomeprazole Magnesium) 40 Mg Capsule.dr 1 Cap PO DAILY 12/31/15 Reported Pacerone (Amiodarone Hcl) 100 Mg Tablet 100 Mg PO DAILY 12/31/15 Reported Hydrocodone-Apap 5-325 (Hydrocodone Bit/Acetaminophen) 1 Each Tablet 2 Tab PO Q4HRS PRN 12/31/15 Reported Impression . 1. Acute respiratory distress with pleurisy secondary to acute bilateral pulmonary emboli. 2. Acute pulmonary emboli. 3. Negative venous Dopplers of the lower extremities, performed on 04/03. 4. 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 5. CT of the chest revealing IVC filter placement. Plan . D/W DR NOEL UNABLE TO USE NOVEL AGENTS WILL NEED COUMADIN 1. Continue LOVENOX 2. The patient safe to have bathroom privileges with assistance. 3. FOLLOW UP WITH DR NOEL 4. P.r.n. oxygen. 5. 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 RENU MENON MD Apr 06, 2017 10:24
[2017-04-06 11:00] VITALS: BP 113/46
--- NOTE | 2017-04-06 13:33 | PDOC ---
PROGRESS NOTES Subjective Subjective Pt awake and pleasant in conversation. C/o increased right lower extremity pain in her calf. Pt states pain worse with ambulation and palpation. Pt states she is eating and drinking well. Pt states she had a loose BM this am. Objective Objective Pt awake and alert. NAD. VSS. Afebrile. Lungs CTA bilat. Resp even and unlabored. Heart with RRR. No murmurs. No pedal edema. Right calf region sore with palpation. No masses palpable. No overlying edema or erythema present. 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 -Heparin initiated -Coumadin initiated per protocol -CXR without congestion. -Cardiology consulted -Trip negative x2 -Echo tomorrow -Pulmonology consulted -Planned to initiate Eliquis however contraindicated with Dilantin. Therefore, cont pt on Coumadin. 2) Right LE pain -Repeat venous doppler today. Pt will need stabilization of her INR pior to Dc. Comment Review of Relevant I have reviewed the following items nurys (where applicable) has been applied. Labs Laboratory Tests Test 04/04/17 16:55 04/05/17 01:50 04/05/17 07:50 04/05/17 15:50 Heparin Anti-Xa Act, Unfractionated 0.17 IU/mL (0.30-0.70) 0.35 IU/mL (0.30-0.70) 0.22 IU/mL (0.30-0.70) 0.44 IU/mL (0.30-0.70) White Blood Count 4.9 x10^3/uL (4.0-11.0) Red Blood Count 2.77 x10^6/uL (3.50-5.40) Hemoglobin 8.1 g/dL (12.0-15.5) Hematocrit 25.4 % (36.0-47.0) Mean Corpuscular Volume 92 fL (79-100) Mean Corpuscular Hemoglobin 29 pg (25-35) Mean Corpuscular Hemoglobin Concent 32 g/dL (31-37) Red Cell Distribution Width 15.2 % (11.5-14.5) Platelet Count 140 x10^3/uL (140-400) Neutrophils (%) (Auto) 43 % (31-73) Lymphocytes (%) (Auto) 36 % (24-48) Monocytes (%) (Auto) 17 % (0-9) Eosinophils (%) (Auto) 3 % (0-3) Basophils (%) (Auto) 1 % (0-3) Neutrophils # (Auto) 2.1 x10^3uL (1.8-7.7) Lymphocytes # (Auto) 1.8 x10^3/uL (1.0-4.8) Monocytes # (Auto) 0.8 x10^3/uL (0.0-1.1) Eosinophils # (Auto) 0.1 x10^3/uL (0.0-0.7) Basophils # (Auto) 0.0 x10^3/uL (0.0-0.2) Platelet Estimate Adequate (ADEQUATE) Giant Platelets Occ Prothrombin Time 13.6 SEC (11.7-14.0) Prothromb Time International Ratio 1.1 (0.8-1.1) Sodium Level 141 mmol/L (136-145) Potassium Level 4.2 mmol/L (3.5-5.1) Chloride Level 107 mmol/L (98-107) Carbon Dioxide Level 26 mmol/L (21-32) Anion Gap 8 (6-14) Blood Urea Nitrogen 20 mg/dL (7-20) Creatinine 1.0 mg/dL (0.6-1.0) Estimated GFR (Cockcroft-Gault) 52.4 Glucose Level 87 mg/dL (70-99) Calcium Level 7.5 mg/dL (8.5-10.1) Test 04/06/17 05:07 Prothrombin Time 15.7 SEC (11.7-14.0) Prothromb Time International Ratio 1.3 (0.8-1.1) Laboratory Tests Test 04/05/17 15:50 04/06/17 05:07 Heparin Anti-Xa Act, Unfractionated 0.44 IU/mL (0.30-0.70) Prothrombin Time 15.7 SEC (11.7-14.0) Prothromb Time International Ratio 1.3 (0.8-1.1) Microbiology 04/04/17 Urine Culture - Preliminary, Resulted 04/04/17 Urine Culture Result 1 (NEMESIO) - Preliminary, Resulted Medications Current Medications Fentanyl Citrate (Fentanyl 2ml Vial) 25 mcg PRN Q15MIN PRN IV PAIN GREATER THAN 3/10; Start 04/03/17 at 22:15; Stop 04/04/17 at 22:14; Status DC Ondansetron HCl (Zofran) 4 mg PRN Q8HRS PRN IV NAUSEA/VOMITING; Start 04/04/17 at 02:15; Stop 04/05/17 at 02:14; Status DC Fentanyl Citrate (Fentanyl 2ml Vial) 25 mcg PRN Q1HR PRN IV PAIN; Start at 02:15; Stop 04/05/17 at 02:14; Status DC Acetaminophen (Tylenol) 650 mg PRN Q4HRS PRN PO FEVER; Start 04/04/17 at 02:15 ; Stop 04/05/17 at 02:14; Status DC Heparin Sodium (Porcine) (Heparin Sodium) 3,200 unit 1X ONCE IV Last administered on 04/04/17 03:18; Start 04/04/17 at 02:45; Stop 04/04/17 at 02:52 ; Status DC Heparin Sodium/ Dextrose 500 ml @ 0 mls/hr CONT PRN IV SEE I/O RECORD Last administered on 04/05/17 13:44; Start 04/04/17 at 02:45; Stop 04/05/17 at 16:36 ; Status DC Heparin Sodium (Porcine) (Heparin Sodium) 1,200 unit PRN Q6HRS PRN IV FOR UFH LEVEL LESS THAN 0.2; Start 04/04/17 at 02:45; Stop 04/05/17 at 16:36; Status DC Heparin Sodium (Porcine) (Heparin Sodium) 600 unit PRN Q6HRS PRN IV FOR UFH LEVEL 0.2 - 0.29; Start 04/04/17 at 02:45; Stop 04/05/17 at 16:36; Status DC Warfarin Sodium (Coumadin Per Pharmacy) 1 each PRN DAILY PRN MC PER PROTOCOL Last administered on 04/05/17 12:35; Start 04/04/17 at 03:00; Stop 04/05/17 at 16:36; Status DC Warfarin Sodium (Coumadin) 5 mg ONCE ONCE PO Last administered on 04/04/17 03 :31; Start 04/04/17 at 03:15; Stop 04/04/17 at 03:16; Status DC Info (Anti-Coagulation Monitoring By Pharmacy) 1 each PRN DAILY PRN MC SEE COMMENTS Last administered on 04/05/17 12:39; Start 04/04/17 at 03:00 Amiodarone HCl (Cordarone) 100 mg DAILY PO Last administered on 04/06/17 07:51 ; Start 04/04/17 at 11:00 Fentanyl (Duragesic 50mcg/ Hr Patch) 1 patch Q72H TD Last administered on 10:45; Start 04/04/17 at 10:45 Acetaminophen/ Hydrocodone Bitart (Lortab 5/325) 1 tab Q6HRS PRN PO SEVERE PAIN ; Start 04/04/17 at 10:45 Phenytoin Sodium (Dilantin) 100 mg BID PO Last administered on 04/06/17 07:52 ; Start 04/04/17 at 11:00 Pantoprazole Sodium (Protonix) 40 mg DAILYAC PO Last administered on 04/06/17 07:52; Start 04/04/17 at 11:30 Famotidine (Pepcid) 40 mg QHS PO Last administered on 04/04/17 21:24; Start at 21:00; Stop 04/05/17 at 22:06; Status DC Gabapentin (Neurontin) 100 mg DAILY PO Last administered on 04/06/17 07:52; Start 04/04/17 at 11:30 Warfarin Sodium (Coumadin) 3 mg 1X WARF ONCE PO Last administered on 17:17; Start 04/04/17 at 17:00; Stop 04/04/17 at 17:01; Status DC Warfarin Sodium (Coumadin) 5 mg 1X WARF ONCE PO Last administered on 17:21; Start 04/05/17 at 16:00; Stop 04/05/17 at 16:01; Status DC Apixaban (Eliquis) 2.5 mg BID PO ; Start 04/05/17 at 21:00; Status UNV Enoxaparin Sodium (Lovenox 40mg Syringe) 40 mg Q24H SQ Last administered on t 22:10; Start 04/05/17 at 22:00 Active Scripts Active Levaquin (Levofloxacin) 500 Mg Tablet 500 Mg PO Q48H 8 Days Reported Robaxin (Methocarbamol) 500 Mg Tablet 500 Mg PO QID Cymbalta (Duloxetine Hcl) 30 Mg Capsule.dr 30 Mg PO DAILY FENTANYL 50mcg/hr (Fentanyl) 1 Each Patch.td72 1 Patch TP Q3DAYS PRN Tamsulosin Hcl 0.4 Mg Cap.er.24h 2 Cap PO HS Phenytoin Sodium Extended 100 Mg Capsule 100 Mg PO BID Melatonin 5 Mg Tablet 5 Mg PO HS Gabapentin 100 Mg Capsule 2 Cap PO BID DURAGESIC 50mcg/hr (Fentanyl) 1 Each Patch.td72 1 Patch TD Q72H Famotidine 40 Mg Tablet 40 Mg PO HS Nexium Capsule (Esomeprazole Magnesium) 40 Mg Capsule.dr 1 Cap PO DAILY Pacerone (Amiodarone Hcl) 100 Mg Tablet 100 Mg PO DAILY Hydrocodone-Apap 5-325 (Hydrocodone Bit/Acetaminophen) 1 Each Tablet 2 Tab PO Q4HRS PRN Vitals/I & O Vital Sign - Last 24 Hours 04/05/17 04/05/17 04/05/17 04/05/17 15:00 19:20 20:31 23:20 Temp 97.8 97.5 98.5 97.8 97.5 98.5 Pulse 55 61 54 Resp 16 18 18 B/P (MAP) 98/48 (65) 121/68 (85) 124/55 (78) Pulse Ox 94 92 99 O2 Delivery Room Air Room Air Room Air Room Air 04/06/17 04/06/17 04/06/17 04/06/17 03:20 07:00 07:51 07:55 Temp 97.5 97.8 97.5 97.8 Pulse 57 51 51 Resp 18 16 B/P (MAP) 126/69 (88) 111/53 (72) 111/53 Pulse Ox 93 95 O2 Delivery Room Air Room Air Room Air 04/06/17 11:00 Temp 98.1 98.1 Pulse 54 Resp 16 B/P (MAP) 113/46 (68) Pulse Ox 94 O2 Delivery Room Air DAVID NOEL MD Apr 06, 2017 13:33
[2017-04-06 15:00] VITALS: BP 116/62
[2017-04-06 19:31] VITALS: BP 108/61
[2017-04-06] MEDS: ENOXAPARIN 40 MG/0.4 ML SYRINGE. SQ SCH (22:14)
[2017-04-06 23:15] VITALS: BP 119/63
[2017-04-07 03:13] VITALS: BP 132/66
[2017-04-07 06:42] LABS: INR 1.5 (0.8-1.1)
[2017-04-07 07:00] VITALS: BP 133/80
--- NOTE | 2017-04-07 08:02 | RAD ---
Right lower extremity venous Doppler 04/06/2017 at 1944 hours Indication: Right calf pain Comparison: Lower extremity venous Doppler 04/04/2017 Technique: Sonographic evaluation of the right lower extremity venous system was performed utilizing grayscale, color Doppler and spectral waveform analysis. Findings: Common femoral vein: Normal compressibility and venous waveform. No filling defect to suggest thrombus. Superficial femoral vein: Normal compressibility and venous waveform. No filling defect to suggest thrombus. Popliteal vein: Normal compressibility and venous waveform. No filling defect to suggest thrombus. Posterior tibial vein: Normal compressibility and venous waveform. No filling defect to suggest thrombus. Greater saphenous vein: Normal compressibility and venous waveform. No filling defect to suggest thrombus. There is a lymph node in the right groin measuring 2.2 x 0.6 cm. A large fatty hilum is present with normal reniform morphology. Impression: No sonographic evidence to suggest right lower extremity venous thrombosis.
[2017-04-07] MEDS: HYDROcodone/APAP 5/325MG 1 TAB TABLET PO PRN ×2 (08:57→17:05)
[2017-04-07] MEDS: fentaNYL 50MCG/HR PATCH 1 PATCH PATCH.TD72 TD SCH (08:57)
[2017-04-07] MEDS: GABAPENTIN 100 MG CAPSULE. PO SCH (08:57)
[2017-04-07] MEDS: PHENYTOIN SODIUM EXTENDED 100 MG CAPSULE PO SCH ×2 (08:57→21:32)
[2017-04-07] MEDS: AMIODARONE HCL 100 MG TABLET PO SCH (08:58)
[2017-04-07] MEDS: PANTOPRAZOLE 40 MG TABLET.DR. PO SCH (08:58)
--- NOTE | 2017-04-07 09:17 | PDOC ---
SUBJECTIVE Subjective pleasant, state feels better pain leg is better , some neck pain today took pain pill, no chest pain , no increase SOB OBJECTIVE Vital Signs Vital Signs Date Time Temp Pulse Resp B/P (MAP) Pulse Ox O2 Delivery O2 Flow Rate FiO2 04/07/17 08:58 68 133/80 04/07/17 08:57 93 Room Air 04/07/17 08:57 93 Room Air 04/07/17 07:00 97.9 68 16 133/80 (97) 93 Room Air 97.9 04/07/17 03:13 98.1 54 16 132/66 (88) 95 Room Air 98.1 04/06/17 23:15 98.1 54 16 119/63 (81) 95 Room Air 98.1 04/06/17 20:00 Room Air 04/06/17 19:31 98.1 59 16 108/61 (77) 94 Room Air 98.1 04/06/17 15:00 98.1 48 16 116/62 (80) 94 Room Air 98.1 04/06/17 11:00 98.1 54 16 113/46 (68) 94 Room Air 98.1 I & O Intake and Output 04/08/17 06:59 Output Total 600 ml Balance -600 ml Output Urine Total 600 ml PHYSICAL EXAM Physical Exam very thin and cachectic lungs fairly good BS heart RRR abd soft and none tender ext no edema no calf pain ASSESSMENT/PLAN Assessment/Plan 1) Chest pain due to PE continue warfarin per pharmacy 2) Right LE pain improved , 2nd doppler no DVT 3) Anemia concerned with anticoagulation will guaiac stool and ask GI to see 4) Hx thoracic aortic aneurysm stable 5) epilepsy 6) hx colorectal CA s/p resection 2009? no f/u colono since Problems: COMMENT Lab Laboratory Tests Test 04/07/17 05:20 Prothrombin Time 17.0 SEC (11.7-14.0) Prothromb Time International Ratio 1.5 (0.8-1.1) ALLA WINSLOW MD Apr 07, 2017 09:17
[2017-04-07 11:00] VITALS: BP 104/50
--- NOTE | 2017-04-07 11:38 | PDOC2 ---
GI CONSULT Reason For Consult: Anemia, on anticoagulant for PE HPI: HPI: 87 y/o female admitted with CP and abnormal VQ scan c/w PE's. Noted to be anemic and to have past GI history so we were asked to see. Denies current problems with HB, dysphagia (though in past), PUD, GB, liver or pancreatic issues. Prior EGD's I can find at [facility], variably showing HH, some reflux issues. No mention of fundoplication. No tobacco, alcohol or NSAID use currently. No N, V, D, C. No melena or overt blood in stool. H/o diverticulosis and 2 primary colon cancers, resected by Dr. Arellano at [facility] in 2008 and 2009 from ascending and descending colons. Doubt colonoscopy since. PMH: PMH: HTN, AFIB, COPD, peripheral neuropathy, seizures, DVT with IVC filter (can see on CT from 05/2016 here), OA, OP, subdural hematoma, subdural hygroma, scoliosis. S/p colon resections, drainage of subdural lesions, ECCE. FH: Family History: No pertinent hx Social History: Smoke: Quit ALCOHOL: none Drugs: None ROS: GEN: Denies fevers, chills, sweats HEENT: Denies blurred vision, sore throat CV: Denies chest pain currently RESP: Denies shortness of air, cough GI: Per HPI : Denies hematuria, dysuria ENDO: Denies weight changes NEURO: Denies confusion, dizziness MSK: Denies weakness, joint pain/swelling SKIN: Denies jaundice, pruritus Vitals: Vitals: Vital Signs Date Time Temp Pulse Resp B/P (MAP) Pulse Ox O2 Delivery O2 Flow Rate FiO2 04/07/17 11:00 99.1 56 16 104/50 (68) 93 Room Air 99.1 Labs: Labs: Laboratory Tests Test 04/07/17 05:20 Prothrombin Time 17.0 SEC (11.7-14.0) Prothromb Time International Ratio 1.5 (0.8-1.1) Hemoglobin 9-->8 here. Historically in 8-9 range. Allergies: Coded Allergies: Penicillins (Verified Allergy, Intermediate, 12/31/15) Sulfa (Sulfonamide Antibiotics) (Verified Allergy, Intermediate, 12/31/15) adhesive tape (Verified Allergy, Intermediate, 12/31/15) aspirin (Verified Allergy, Intermediate, 12/31/15) doxycycline (Verified Allergy, Intermediate, 12/31/15) ferrous sulfate (Verified Allergy, Intermediate, 12/31/15) ibuprofen (Verified Allergy, Intermediate, 12/31/15) iodine (Verified Allergy, Intermediate, 12/31/15) lactose (Verified Allergy, Intermediate, 12/31/15) morphine (Verified Allergy, Intermediate, 12/31/15) povidone-iodine (Verified Allergy, Intermediate, 12/31/15) silver sulfadiazine (Verified Allergy, Intermediate, 12/31/15) soap (Verified Allergy, Intermediate, 12/31/15) I S O L A T I O N *CONTACT* (Verified Allergy, Unknown, 01/03/16) mrsa shoulder Medications: MAR reviewed. Imaging: Imaging: Reviewed. PE: GEN: NAD HEENT: Atraumatic, PERRLA LUNGS: CTAB HEART: IRRR, no murmurs ABD: NABS, S/ND/NT, no masses EXTREMITY: No edema, nearly cachectic SKIN: No rashes, no jaundice NEURO/PSYCH: A & O 3 A/P: A/P: IMP: 1. Anemia, doesn't seem progressive. 2. H/o GERD, HH. Currently not symptomatic. 3. Diverticulosis. 4. H/o 2 separate colon cancer primaries, both resected. REC: 1. Continue anticoagulation and observe for overt bleeding. Further w/u if happens. Would NOT do stool hemoccults. Thanks. CRIS JANE MD Apr 07, 2017 11:38
[2017-04-07 15:00] VITALS: BP 92/47
[2017-04-07] MEDS ORDERED: WARFARIN 5 MG TABLET. PO ONE (16:00)
[2017-04-07 19:37] VITALS: BP 101/56
[2017-04-07] MEDS: ENOXAPARIN 40 MG/0.4 ML SYRINGE. SQ SCH (21:34)
[2017-04-07 23:52] VITALS: BP 104/53
[2017-04-08 03:16] VITALS: BP 116/54
[2017-04-08 05:54] LABS: HEMATOCRIT 23.6 % (36.0-47.0); HEMOGLOBIN 7.7 g/dL (12.0-15.5); RED BLOOD COUNT 2.6 x10^6/uL (3.50-5.40); WHITE BLOOD COUNT 4.7 x10^3/uL (4.0-11.0)
[2017-04-08 06:02] LABS: INR 1.5 (0.8-1.1); PROTHROMBIN TIME PATIENT 17.1 SEC (11.7-14.0)
[2017-04-08 06:05] LABS: ALBUMIN 2.6 g/dL (3.4-5.0); ALBUMIN/GLOBULIN RATIO 0.7 (1.0-1.7); CALCIUM 7.6 mg/dL (8.5-10.1); CREATININE 1.4 mg/dL (0.6-1.0); GFR 35.6; POTASSIUM 4.5 mmol/L (3.5-5.1); TOTAL BILIRUBIN 0.1 mg/dL (0.2-1.0); TOTAL PROTEIN 6.3 g/dL (6.4-8.2)
[2017-04-08 07:00] VITALS: BP 110/59
[2017-04-08] MEDS: PHENYTOIN SODIUM EXTENDED 100 MG CAPSULE PO SCH ×2 (08:33→21:12)
[2017-04-08] MEDS: GABAPENTIN 100 MG CAPSULE. PO SCH (08:34)
[2017-04-08] MEDS: PANTOPRAZOLE 40 MG TABLET.DR. PO SCH ×2 (08:34→21:11)
[2017-04-08] MEDS: AMIODARONE HCL 100 MG TABLET PO SCH (08:34)
[2017-04-08] MEDS: HYDROcodone/APAP 5/325MG 1 TAB TABLET PO PRN ×2 (08:40→21:23)
--- NOTE | 2017-04-08 09:57 | PDOC ---
G I PROGRESS NOTE Subjective Offers no complaints. Denies any overt bleeding. Physical Exam Lungs clear. RRR Abdomen soft, not tender nor distended. Review of Relevant I have reviewed the following items nurys (where applicable) has been applied. Labs Laboratory Tests Test 04/07/17 05:20 04/08/17 04:10 Prothrombin Time 17.0 SEC (11.7-14.0) 17.1 SEC (11.7-14.0) Prothromb Time International Ratio 1.5 (0.8-1.1) 1.5 (0.8-1.1) White Blood Count 4.7 x10^3/uL (4.0-11.0) Red Blood Count 2.60 x10^6/uL (3.50-5.40) Hemoglobin 7.7 g/dL (12.0-15.5) Hematocrit 23.6 % (36.0-47.0) Mean Corpuscular Volume 91 fL (79-100) Mean Corpuscular Hemoglobin 30 pg (25-35) Mean Corpuscular Hemoglobin Concent 33 g/dL (31-37) Red Cell Distribution Width 15.0 % (11.5-14.5) Platelet Count 138 x10^3/uL (140-400) Sodium Level 140 mmol/L (136-145) Potassium Level 4.5 mmol/L (3.5-5.1) Chloride Level 109 mmol/L (98-107) Carbon Dioxide Level 27 mmol/L (21-32) Anion Gap 4 (6-14) Blood Urea Nitrogen 26 mg/dL (7-20) Creatinine 1.4 mg/dL (0.6-1.0) Estimated GFR (Cockcroft-Gault) 35.6 BUN/Creatinine Ratio 19 (6-20) Glucose Level 81 mg/dL (70-99) Calcium Level 7.6 mg/dL (8.5-10.1) Total Bilirubin 0.1 mg/dL (0.2-1.0) Aspartate Amino Transf (AST/SGOT) 15 U/L (15-37) Alanine Aminotransferase (ALT/SGPT) 14 U/L (14-59) Alkaline Phosphatase 228 U/L (46-116) Total Protein 6.3 g/dL (6.4-8.2) Albumin 2.6 g/dL (3.4-5.0) Albumin/Globulin Ratio 0.7 (1.0-1.7) Laboratory Tests Test 04/08/17 04:10 White Blood Count 4.7 x10^3/uL (4.0-11.0) Red Blood Count 2.60 x10^6/uL (3.50-5.40) Hemoglobin 7.7 g/dL (12.0-15.5) Hematocrit 23.6 % (36.0-47.0) Mean Corpuscular Volume 91 fL (79-100) Mean Corpuscular Hemoglobin 30 pg (25-35) Mean Corpuscular Hemoglobin Concent 33 g/dL (31-37) Red Cell Distribution Width 15.0 % (11.5-14.5) Platelet Count 138 x10^3/uL (140-400) Prothrombin Time 17.1 SEC (11.7-14.0) Prothromb Time International Ratio 1.5 (0.8-1.1) Sodium Level 140 mmol/L (136-145) Potassium Level 4.5 mmol/L (3.5-5.1) Chloride Level 109 mmol/L (98-107) Carbon Dioxide Level 27 mmol/L (21-32) Anion Gap 4 (6-14) Blood Urea Nitrogen 26 mg/dL (7-20) Creatinine 1.4 mg/dL (0.6-1.0) Estimated GFR (Cockcroft-Gault) 35.6 BUN/Creatinine Ratio 19 (6-20) Glucose Level 81 mg/dL (70-99) Calcium Level 7.6 mg/dL (8.5-10.1) Total Bilirubin 0.1 mg/dL (0.2-1.0) Aspartate Amino Transf (AST/SGOT) 15 U/L (15-37) Alanine Aminotransferase (ALT/SGPT) 14 U/L (14-59) Alkaline Phosphatase 228 U/L (46-116) Total Protein 6.3 g/dL (6.4-8.2) Albumin 2.6 g/dL (3.4-5.0) Albumin/Globulin Ratio 0.7 (1.0-1.7) Microbiology 04/04/17 Urine Culture - Final, Complete 04/04/17 Urine Culture Result 1 (NEMESIO) - Final, Complete Medications Current Medications Fentanyl Citrate (Fentanyl 2ml Vial) 25 mcg PRN Q15MIN PRN IV PAIN GREATER THAN 3/10; Start 04/03/17 at 22:15; Stop 04/04/17 at 22:14; Status DC Ondansetron HCl (Zofran) 4 mg PRN Q8HRS PRN IV NAUSEA/VOMITING; Start 04/04/17 at 02:15; Stop 04/05/17 at 02:14; Status DC Fentanyl Citrate (Fentanyl 2ml Vial) 25 mcg PRN Q1HR PRN IV PAIN; Start at 02:15; Stop 04/05/17 at 02:14; Status DC Acetaminophen (Tylenol) 650 mg PRN Q4HRS PRN PO FEVER; Start 04/04/17 at 02:15 ; Stop 04/05/17 at 02:14; Status DC Heparin Sodium (Porcine) (Heparin Sodium) 3,200 unit 1X ONCE IV Last administered on 04/04/17 03:18; Start 04/04/17 at 02:45; Stop 04/04/17 at 02:52 ; Status DC Heparin Sodium/ Dextrose 500 ml @ 0 mls/hr CONT PRN IV SEE I/O RECORD Last administered on 04/05/17 13:44; Start 04/04/17 at 02:45; Stop 04/05/17 at 16:36 ; Status DC Heparin Sodium (Porcine) (Heparin Sodium) 1,200 unit PRN Q6HRS PRN IV FOR UFH LEVEL LESS THAN 0.2; Start 04/04/17 at 02:45; Stop 04/05/17 at 16:36; Status DC Heparin Sodium (Porcine) (Heparin Sodium) 600 unit PRN Q6HRS PRN IV FOR UFH LEVEL 0.2 - 0.29; Start 04/04/17 at 02:45; Stop 04/05/17 at 16:36; Status DC Warfarin Sodium (Coumadin Per Pharmacy) 1 each PRN DAILY PRN MC PER PROTOCOL Last administered on 04/05/17 12:35; Start 04/04/17 at 03:00; Stop 04/05/17 at 16:36; Status DC Warfarin Sodium (Coumadin) 5 mg ONCE ONCE PO Last administered on 04/04/17 03 :31; Start 04/04/17 at 03:15; Stop 04/04/17 at 03:16; Status DC Info (Anti-Coagulation Monitoring By Pharmacy) 1 each PRN DAILY PRN MC SEE COMMENTS Last administered on 04/05/17 12:39; Start 04/04/17 at 03:00 Amiodarone HCl (Cordarone) 100 mg DAILY PO Last administered on 04/08/17 08:34 ; Start 04/04/17 at 11:00 Fentanyl (Duragesic 50mcg/ Hr Patch) 1 patch Q72H TD Last administered on 08:57; Start 04/04/17 at 10:45 Acetaminophen/ Hydrocodone Bitart (Lortab 5/325) 1 tab Q6HRS PRN PO SEVERE PAIN Last administered on 04/08/17 08:40; Start 04/04/17 at 10:45 Phenytoin Sodium (Dilantin) 100 mg BID PO Last administered on 04/08/17 08:33 ; Start 04/04/17 at 11:00 Pantoprazole Sodium (Protonix) 40 mg DAILYAC PO Last administered on 04/08/17 08:34; Start 04/04/17 at 11:30 Famotidine (Pepcid) 40 mg QHS PO Last administered on 04/04/17 21:24; Start at 21:00; Stop 04/05/17 at 22:06; Status DC Gabapentin (Neurontin) 100 mg DAILY PO Last administered on 04/08/17 08:34; Start 04/04/17 at 11:30 Warfarin Sodium (Coumadin) 3 mg 1X WARF ONCE PO Last administered on 17:17; Start 04/04/17 at 17:00; Stop 04/04/17 at 17:01; Status DC Warfarin Sodium (Coumadin) 5 mg 1X WARF ONCE PO Last administered on 17:21; Start 04/05/17 at 16:00; Stop 04/05/17 at 16:01; Status DC Apixaban (Eliquis) 2.5 mg BID PO ; Start 04/05/17 at 21:00; Status UNV Enoxaparin Sodium (Lovenox 40mg Syringe) 40 mg Q24H SQ Last administered on 21:34; Start 04/05/17 at 22:00 Warfarin Sodium (Coumadin Per Pharmacy) 1 each PRN DAILY PRN MC SEE COMMENTS Last administered on 04/07/17 11:24; Start 04/07/17 at 11:30 Warfarin Sodium (Coumadin) 5 mg 1X WARF ONCE PO Last administered on 17:06; Start 04/07/17 at 16:00; Stop 04/07/17 at 16:01; Status DC Active Scripts Active Levaquin (Levofloxacin) 500 Mg Tablet 500 Mg PO Q48H 8 Days Reported Robaxin (Methocarbamol) 500 Mg Tablet 500 Mg PO QID Cymbalta (Duloxetine Hcl) 30 Mg Capsule.dr 30 Mg PO DAILY FENTANYL 50mcg/hr (Fentanyl) 1 Each Patch.td72 1 Patch TP Q3DAYS PRN Tamsulosin Hcl 0.4 Mg Cap.er.24h 2 Cap PO HS Phenytoin Sodium Extended 100 Mg Capsule 100 Mg PO BID Melatonin 5 Mg Tablet 5 Mg PO HS Gabapentin 100 Mg Capsule 2 Cap PO BID DURAGESIC 50mcg/hr (Fentanyl) 1 Each Patch.td72 1 Patch TD Q72H Famotidine 40 Mg Tablet 40 Mg PO HS Nexium Capsule (Esomeprazole Magnesium) 40 Mg Capsule. 1 Cap PO DAILY Pacerone (Amiodarone Hcl) 100 Mg Tablet 100 Mg PO DAILY Hydrocodone-Apap 5-325 (Hydrocodone Bit/Acetaminophen) 1 Each Tablet 2 Tab PO Q4HRS PRN Vitals/I & O Vital Sign - Last 24 Hours 04/07/17 04/07/17 04/07/17 04/07/17 11:00 12:58 15:00 17:05 Temp 99.1 99.0 99.1 99.0 Pulse 56 58 Resp 16 16 B/P (MAP) 104/50 (68) 92/47 (62) Pulse Ox 93 93 92 92 O2 Delivery Room Air Room Air Room Air Room Air 04/07/17 04/07/17 04/07/17 04/07/17 18:10 19:37 20:00 23:52 Temp 99.0 98.2 99.0 98.2 Pulse 60 58 Resp 18 B/P (MAP) 101/56 (71) 104/53 (70) Pulse Ox 92 91 94 O2 Delivery Room Air Room Air Room Air Room Air 04/08/17 04/08/17 04/08/17 04/08/17 03:16 07:00 08:00 08:34 Temp 97.9 98.0 97.9 98.0 Pulse 54 60 60 Resp 18 16 B/P (MAP) 116/54 (74) 110/59 (76) 110/59 Pulse Ox 96 94 O2 Delivery Room Air Room Air Room Air 04/08/17 08:40 Pulse Ox 94 O2 Delivery Room Air Assessment PE on coags. Minor drop in hemoglobin; no overt bleeding. Plan of Care: Continue current Tx, Mgmt Plan of Care Note Observe for bleeding. CRIS JANE MD Apr 08, 2017 09:57
--- NOTE | 2017-04-08 10:29 | PDOC ---
PULMONARY PROGRESS NOTES Subjective sob better, no cough, mild chest pain, no runny nose. Vitals Vital Signs Date Time Temp Pulse Resp B/P (MAP) Pulse Ox O2 Delivery O2 Flow Rate FiO2 04/08/17 08:40 94 Room Air 04/08/17 08:34 60 110/59 04/08/17 07:00 98.0 16 98.0 ROS: No Nausea, No Abdominal Pain General: Alert, No acute distress HEENT: Other (nc ar perrl) Lungs: Crackles Cardiovascular: S1, S2 Abdomen: Soft, Non-tender Neuro Exam: Alert Extremities: No Edema Skin: Warm Labs Laboratory Tests Test 04/07/17 05:20 04/08/17 04:10 Prothrombin Time 17.0 SEC (11.7-14.0) 17.1 SEC (11.7-14.0) Prothromb Time International Ratio 1.5 (0.8-1.1) 1.5 (0.8-1.1) White Blood Count 4.7 x10^3/uL (4.0-11.0) Red Blood Count 2.60 x10^6/uL (3.50-5.40) Hemoglobin 7.7 g/dL (12.0-15.5) Hematocrit 23.6 % (36.0-47.0) Mean Corpuscular Volume 91 fL (79-100) Mean Corpuscular Hemoglobin 30 pg (25-35) Mean Corpuscular Hemoglobin Concent 33 g/dL (31-37) Red Cell Distribution Width 15.0 % (11.5-14.5) Platelet Count 138 x10^3/uL (140-400) Sodium Level 140 mmol/L (136-145) Potassium Level 4.5 mmol/L (3.5-5.1) Chloride Level 109 mmol/L (98-107) Carbon Dioxide Level 27 mmol/L (21-32) Anion Gap 4 (6-14) Blood Urea Nitrogen 26 mg/dL (7-20) Creatinine 1.4 mg/dL (0.6-1.0) Estimated GFR (Cockcroft-Gault) 35.6 BUN/Creatinine Ratio 19 (6-20) Glucose Level 81 mg/dL (70-99) Calcium Level 7.6 mg/dL (8.5-10.1) Total Bilirubin 0.1 mg/dL (0.2-1.0) Aspartate Amino Transf (AST/SGOT) 15 U/L (15-37) Alanine Aminotransferase (ALT/SGPT) 14 U/L (14-59) Alkaline Phosphatase 228 U/L (46-116) Total Protein 6.3 g/dL (6.4-8.2) Albumin 2.6 g/dL (3.4-5.0) Albumin/Globulin Ratio 0.7 (1.0-1.7) Laboratory Tests Test 04/08/17 04:10 White Blood Count 4.7 x10^3/uL (4.0-11.0) Red Blood Count 2.60 x10^6/uL (3.50-5.40) Hemoglobin 7.7 g/dL (12.0-15.5) Hematocrit 23.6 % (36.0-47.0) Mean Corpuscular Volume 91 fL (79-100) Mean Corpuscular Hemoglobin 30 pg (25-35) Mean Corpuscular Hemoglobin Concent 33 g/dL (31-37) Red Cell Distribution Width 15.0 % (11.5-14.5) Platelet Count 138 x10^3/uL (140-400) Prothrombin Time 17.1 SEC (11.7-14.0) Prothromb Time International Ratio 1.5 (0.8-1.1) Sodium Level 140 mmol/L (136-145) Potassium Level 4.5 mmol/L (3.5-5.1) Chloride Level 109 mmol/L (98-107) Carbon Dioxide Level 27 mmol/L (21-32) Anion Gap 4 (6-14) Blood Urea Nitrogen 26 mg/dL (7-20) Creatinine 1.4 mg/dL (0.6-1.0) Estimated GFR (Cockcroft-Gault) 35.6 BUN/Creatinine Ratio 19 (6-20) Glucose Level 81 mg/dL (70-99) Calcium Level 7.6 mg/dL (8.5-10.1) Total Bilirubin 0.1 mg/dL (0.2-1.0) Aspartate Amino Transf (AST/SGOT) 15 U/L (15-37) Alanine Aminotransferase (ALT/SGPT) 14 U/L (14-59) Alkaline Phosphatase 228 U/L (46-116) Total Protein 6.3 g/dL (6.4-8.2) Albumin 2.6 g/dL (3.4-5.0) Albumin/Globulin Ratio 0.7 (1.0-1.7) Medications Active Scripts Medications Dose Route/Sig Max Daily Dose Days Date Category Levaquin (Levofloxacin) 500 Mg Tablet 500 Mg PO Q48H 8 06/24/16 Rx Robaxin (Methocarbamol) 500 Mg Tablet 500 Mg PO QID 06/19/16 Reported Cymbalta (Duloxetine Hcl) 30 Mg Capsule.dr 30 Mg PO DAILY 06/19/16 Reported FENTANYL 50mcg/hr (Fentanyl) 1 Each Patch.td72 1 Patch TP Q3DAYS PRN 06/19/16 Reported Tamsulosin Hcl 0.4 Mg Cap.er.24h 2 Cap PO HS 12/31/15 Reported Phenytoin Sodium Extended 100 Mg Capsule 100 Mg PO BID 12/31/15 Reported Melatonin 5 Mg Tablet 5 Mg PO HS 12/31/15 Reported Gabapentin 100 Mg Capsule 2 Cap PO BID 12/31/15 Reported DURAGESIC 50mcg/hr (Fentanyl) 1 Each Patch.td72 1 Patch TD Q72H 12/31/15 Reported Famotidine 40 Mg Tablet 40 Mg PO HS 12/31/15 Reported Nexium Capsule (Esomeprazole Magnesium) 40 Mg Capsule. 1 Cap PO DAILY 12/31/15 Reported Pacerone (Amiodarone Hcl) 100 Mg Tablet 100 Mg PO DAILY 12/31/15 Reported Hydrocodone-Apap 5-325 (Hydrocodone Bit/Acetaminophen) 1 Each Tablet 2 Tab PO Q4HRS PRN 12/31/15 Reported Impression . 1. Acute respiratory distress with pleurisy secondary to acute bilateral pulmonary emboli. 2. Acute pulmonary emboli. 3. Negative venous Dopplers of the lower extremities, performed on 04/03. 4. 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 5. CT of the chest revealing IVC filter placement. Plan . 1. Continue LOVENOX/coumadin, hb is dropping, gi consulted, will increase protoinx to bid, has ivc filter 2. activity as tolerated 3. FOLLOW UP WITH DR NOEL 4. P.r.n. oxygen. 5. 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 discussed w TAMIR Avelar MD Apr 08, 2017 10:29
[2017-04-08 11:00] VITALS: BP 100/56
--- NOTE | 2017-04-08 13:33 | PDOC ---
SUBJECTIVE Subjective feels ok, no pain , mild SOB OBJECTIVE Vital Signs Vital Signs Date Time Temp Pulse Resp B/P (MAP) Pulse Ox O2 Delivery O2 Flow Rate FiO2 04/08/17 11:00 97.9 56 16 100/56 (71) 92 Room Air 97.9 04/08/17 10:40 94 Room Air 04/08/17 08:40 94 Room Air 04/08/17 08:34 60 110/59 04/08/17 08:00 Room Air 04/08/17 07:00 98.0 60 16 110/59 (76) 94 Room Air 98.0 04/08/17 03:16 97.9 54 18 116/54 (74) 96 Room Air 97.9 04/07/17 23:52 98.2 58 18 104/53 (70) 94 Room Air 98.2 04/07/17 20:00 Room Air 04/07/17 19:37 99.0 60 101/56 (71) 91 Room Air 99.0 04/07/17 17:05 92 Room Air 04/07/17 15:00 99.0 58 16 92/47 (62) 92 Room Air 99.0 PHYSICAL EXAM Physical Exam no change ASSESSMENT/PLAN Assessment/Plan 1) Chest pain due to PE continue warfarin per pharmacy 2) Right LE pain improved , 2nd doppler no DVT 3) Anemia concerned with anticoagulation will guaiac stool GI following, monitor Hb 4) Hx thoracic aortic aneurysm stable 5) epilepsy 6) hx colorectal CA s/p resection 2009? no f/u colono since Problems: COMMENT Lab Laboratory Tests Test 04/08/17 04:10 White Blood Count 4.7 x10^3/uL (4.0-11.0) Red Blood Count 2.60 x10^6/uL (3.50-5.40) Hemoglobin 7.7 g/dL (12.0-15.5) Hematocrit 23.6 % (36.0-47.0) Mean Corpuscular Volume 91 fL (79-100) Mean Corpuscular Hemoglobin 30 pg (25-35) Mean Corpuscular Hemoglobin Concent 33 g/dL (31-37) Red Cell Distribution Width 15.0 % (11.5-14.5) Platelet Count 138 x10^3/uL (140-400) Prothrombin Time 17.1 SEC (11.7-14.0) Prothromb Time International Ratio 1.5 (0.8-1.1) Sodium Level 140 mmol/L (136-145) Potassium Level 4.5 mmol/L (3.5-5.1) Chloride Level 109 mmol/L (98-107) Carbon Dioxide Level 27 mmol/L (21-32) Anion Gap 4 (6-14) Blood Urea Nitrogen 26 mg/dL (7-20) Creatinine 1.4 mg/dL (0.6-1.0) Estimated GFR (Cockcroft-Gault) 35.6 BUN/Creatinine Ratio 19 (6-20) Glucose Level 81 mg/dL (70-99) Calcium Level 7.6 mg/dL (8.5-10.1) Total Bilirubin 0.1 mg/dL (0.2-1.0) Aspartate Amino Transf (AST/SGOT) 15 U/L (15-37) Alanine Aminotransferase (ALT/SGPT) 14 U/L (14-59) Alkaline Phosphatase 228 U/L (46-116) Total Protein 6.3 g/dL (6.4-8.2) Albumin 2.6 g/dL (3.4-5.0) Albumin/Globulin Ratio 0.7 (1.0-1.7) ALLA WINSLOW MD Apr 08, 2017 13:33
[2017-04-08 15:00] VITALS: BP 96/47
[2017-04-08] MEDS ORDERED: WARFARIN 5 MG TABLET. PO ONE (16:00)
[2017-04-08 19:38] VITALS: BP 96/47
[2017-04-08] MEDS: ENOXAPARIN 40 MG/0.4 ML SYRINGE. SQ SCH (21:14)
[2017-04-08 23:00] VITALS: BP 121/50
[2017-04-09 03:38] VITALS: BP 101/53
[2017-04-09 05:04] LABS: HEMATOCRIT 22.5 % (36.0-47.0); HEMOGLOBIN 7.2 g/dL (12.0-15.5); RED BLOOD COUNT 2.49 x10^6/uL (3.50-5.40); RED CELL DISTRIBUTION WIDTH 15.1 % (11.5-14.5); WHITE BLOOD COUNT 4.2 x10^3/uL (4.0-11.0)
[2017-04-09 05:19] LABS: INR 1.6 (0.8-1.1); PROTHROMBIN TIME PATIENT 17.9 SEC (11.7-14.0)
[2017-04-09 05:50] LABS: CALCIUM 7.6 mg/dL (8.5-10.1); GFR 52.4; POTASSIUM 4.3 mmol/L (3.5-5.1)
[2017-04-09 07:00] VITALS: BP 110/44
[2017-04-09] MEDS: PANTOPRAZOLE 40 MG TABLET.DR. PO SCH ×2 (08:21→19:56)
[2017-04-09] MEDS: PHENYTOIN SODIUM EXTENDED 100 MG CAPSULE PO SCH ×2 (08:21→19:56)
[2017-04-09] MEDS: GABAPENTIN 100 MG CAPSULE. PO SCH (08:21)
[2017-04-09] MEDS: AMIODARONE HCL 100 MG TABLET PO SCH (08:22)
[2017-04-09] MEDS: HYDROcodone/APAP 5/325MG 1 TAB TABLET PO PRN ×2 (08:22→21:46)
--- NOTE | 2017-04-09 08:49 | PDOC ---
GENERAL General: vss and afebrile. awake and alert. Hb down to 7.2 and will heme test stools and recheck in am. INR 1.6 with warfarin adjustment ongoing. otherwise same with therapy to keep moving. Problems: VITAL SIGNS Vital Signs: Vital Signs Date Time Temp Pulse Resp B/P (MAP) Pulse Ox O2 Delivery O2 Flow Rate FiO2 04/09/17 08:22 Room Air 04/09/17 08:22 86 110/44 04/09/17 07:00 97.8 16 93 97.8 ALLERGIES Allergies: Allergies Coded Allergies Type Severity Reaction Last Updated Verified Penicillins Allergy Intermediate 12/31/15 Yes Sulfa (Sulfonamide Antibiotics) Allergy Intermediate 12/31/15 Yes adhesive tape Allergy Intermediate 12/31/15 Yes aspirin Allergy Intermediate 12/31/15 Yes doxycycline Allergy Intermediate 12/31/15 Yes ferrous sulfate Allergy Intermediate 12/31/15 Yes ibuprofen Allergy Intermediate 12/31/15 Yes iodine Allergy Intermediate 12/31/15 Yes lactose Allergy Intermediate 12/31/15 Yes morphine Allergy Intermediate 12/31/15 Yes povidone-iodine Allergy Intermediate 12/31/15 Yes silver sulfadiazine Allergy Intermediate 12/31/15 Yes soap Allergy Intermediate 12/31/15 Yes I S O L A T I O N *CONTACT* Allergy Unknown 01/03/16 Yes MEDS Medications: Current Medications Medications (Trade) Dose Ordered Sig/Christine Start Time Stop Time Status Last Admin Dose Admin Acetaminophen (Tylenol) 650 mg PRN Q4HRS PRN 04/04/17 02:15 04/05/17 02:14 DC Acetaminophen/ Hydrocodone Bitart (Lortab 5/325) 1 tab Q6HRS PRN 04/04/17 10:45 04/09/17 08:22 1 TAB Amiodarone HCl (Cordarone) 100 mg DAILY 04/04/17 11:00 04/09/17 08:22 100 MG Apixaban (Eliquis) 2.5 mg BID 04/05/17 21:00 UNV Enoxaparin Sodium (Lovenox 40mg Syringe) 40 mg Q24H 04/05/17 22:00 04/08/17 21:14 40 MG Famotidine (Pepcid) 40 mg QHS 04/04/17 21:00 04/05/17 22:06 DC 04/04/17 21:24 40 MG Fentanyl (Duragesic 50mcg/ Hr Patch) 1 patch Q72H 04/04/17 10:45 04/07/17 08:57 1 PATCH Fentanyl Citrate (Fentanyl 2ml Vial) 25 mcg PRN Q1HR PRN 04/04/17 02:15 04/05/17 02:14 DC Gabapentin (Neurontin) 100 mg DAILY 04/04/17 11:30 04/09/17 08:21 100 MG Heparin Sodium (Porcine) (Heparin Sodium) 600 unit PRN Q6HRS PRN 04/04/17 02:45 04/05/17 16:36 DC Heparin Sodium/ Dextrose 500 ml @ 0 mls/hr CONT PRN 04/04/17 02:45 04/05/17 16:36 DC 04/05/17 13:44 0 MLS/HR Info (Anti-Coagulation Monitoring By Pharmacy) 1 each PRN DAILY PRN 04/04/17 03:00 04/05/17 12:39 1 EACH Ondansetron HCl (Zofran) 4 mg PRN Q8HRS PRN 04/04/17 02:15 04/05/17 02:14 DC Pantoprazole Sodium (Protonix) 40 mg BID 04/08/17 21:00 04/09/17 08:21 40 MG Phenytoin Sodium (Dilantin) 100 mg BID 04/04/17 11:00 04/09/17 08:21 100 MG Warfarin Sodium (Coumadin Per Pharmacy) 1 each PRN DAILY PRN 04/07/17 11:30 04/08/17 11:47 1 EACH Warfarin Sodium (Coumadin) 5 mg 1X WARF ONCE 04/08/17 16:00 04/08/17 16:01 DC 04/08/17 16:14 5 MG LAB Lab: Laboratory Tests Test 04/09/17 04:20 White Blood Count 4.2 x10^3/uL (4.0-11.0) Red Blood Count 2.49 x10^6/uL (3.50-5.40) Hemoglobin 7.2 g/dL (12.0-15.5) Hematocrit 22.5 % (36.0-47.0) Mean Corpuscular Volume 90 fL (79-100) Mean Corpuscular Hemoglobin 29 pg (25-35) Mean Corpuscular Hemoglobin Concent 32 g/dL (31-37) Red Cell Distribution Width 15.1 % (11.5-14.5) Platelet Count 142 x10^3/uL (140-400) Prothrombin Time 17.9 SEC (11.7-14.0) Prothromb Time International Ratio 1.6 (0.8-1.1) Sodium Level 141 mmol/L (136-145) Potassium Level 4.3 mmol/L (3.5-5.1) Chloride Level 108 mmol/L (98-107) Carbon Dioxide Level 26 mmol/L (21-32) Anion Gap 7 (6-14) Blood Urea Nitrogen 28 mg/dL (7-20) Creatinine 1.0 mg/dL (0.6-1.0) Estimated GFR (Cockcroft-Gault) 52.4 Glucose Level 86 mg/dL (70-99) Calcium Level 7.6 mg/dL (8.5-10.1) DAVID NOEL MD Apr 09, 2017 08:49
--- NOTE | 2017-04-09 10:24 | PDOC ---
Subjective: Subjective: "I'm doin'." Left shoulder hurts. Denies bleeding. Objective: Objective: Dr. Castrejon ordered stool hemoccult. Vital Signs: Vital Signs Date Time Temp Pulse Resp B/P (MAP) Pulse Ox O2 Delivery O2 Flow Rate FiO2 04/09/17 09:18 Room Air 04/09/17 08:22 86 110/44 04/09/17 07:00 97.8 16 93 97.8 Labs: Laboratory Tests Test 04/09/17 04:20 White Blood Count 4.2 x10^3/uL Red Blood Count 2.49 x10^6/uL Hemoglobin 7.2 g/dL Hematocrit 22.5 % Mean Corpuscular Volume 90 fL Mean Corpuscular Hemoglobin 29 pg Mean Corpuscular Hemoglobin Concent 32 g/dL Red Cell Distribution Width 15.1 % Platelet Count 142 x10^3/uL Prothrombin Time 17.9 SEC Prothromb Time International Ratio 1.6 Sodium Level 141 mmol/L Potassium Level 4.3 mmol/L Chloride Level 108 mmol/L Carbon Dioxide Level 26 mmol/L Anion Gap 7 Blood Urea Nitrogen 28 mg/dL Creatinine 1.0 mg/dL Estimated GFR (Cockcroft-Gault) 52.4 Glucose Level 86 mg/dL Calcium Level 7.6 mg/dL PE: GEN: NAD, curled up on right side LUNGS: clear HEART: RRR ABD: BS+, non-tender NEURO/PSYCH: A & O 3 A/P: Anemia H/o colon cancer (2 separate primaries s/p resections), GERD, diverticulosis PEs w/ VC filter -- Hgb drifting on Warfarin and Lovenox w/o overt bleeding. Continue PPI. Not an ideal endoscopy candidate. FRANCHESCA MORALES Apr 09, 2017 10:24
[2017-04-09 10:58] VITALS: BP 100/44
--- NOTE | 2017-04-09 11:59 | PDOC ---
PULMONARY PROGRESS NOTES Subjective sob better, no cough, Vitals Vital Signs Date Time Temp Pulse Resp B/P (MAP) Pulse Ox O2 Delivery O2 Flow Rate FiO2 04/09/17 10:58 97.8 61 16 100/44 (62) 94 Room Air 97.8 ROS: No Nausea, No Abdominal Pain General: Alert, No acute distress HEENT: Other (nc ar perrl) Lungs: Other (decrease bs) Cardiovascular: S1, S2 Abdomen: Soft, Non-tender Neuro Exam: Alert Extremities: No Edema Skin: Warm Labs Laboratory Tests Test 04/08/17 04:10 04/09/17 04:20 White Blood Count 4.7 x10^3/uL (4.0-11.0) 4.2 x10^3/uL (4.0-11.0) Red Blood Count 2.60 x10^6/uL (3.50-5.40) 2.49 x10^6/uL (3.50-5.40) Hemoglobin 7.7 g/dL (12.0-15.5) 7.2 g/dL (12.0-15.5) Hematocrit 23.6 % (36.0-47.0) 22.5 % (36.0-47.0) Mean Corpuscular Volume 91 fL (79-100) 90 fL (79-100) Mean Corpuscular Hemoglobin 30 pg (25-35) 29 pg (25-35) Mean Corpuscular Hemoglobin Concent 33 g/dL (31-37) 32 g/dL (31-37) Red Cell Distribution Width 15.0 % (11.5-14.5) 15.1 % (11.5-14.5) Platelet Count 138 x10^3/uL (140-400) 142 x10^3/uL (140-400) Prothrombin Time 17.1 SEC (11.7-14.0) 17.9 SEC (11.7-14.0) Prothromb Time International Ratio 1.5 (0.8-1.1) 1.6 (0.8-1.1) Sodium Level 140 mmol/L (136-145) 141 mmol/L (136-145) Potassium Level 4.5 mmol/L (3.5-5.1) 4.3 mmol/L (3.5-5.1) Chloride Level 109 mmol/L (98-107) 108 mmol/L (98-107) Carbon Dioxide Level 27 mmol/L (21-32) 26 mmol/L (21-32) Anion Gap 4 (6-14) 7 (6-14) Blood Urea Nitrogen 26 mg/dL (7-20) 28 mg/dL (7-20) Creatinine 1.4 mg/dL (0.6-1.0) 1.0 mg/dL (0.6-1.0) Estimated GFR (Cockcroft-Gault) 35.6 52.4 BUN/Creatinine Ratio 19 (6-20) Glucose Level 81 mg/dL (70-99) 86 mg/dL (70-99) Calcium Level 7.6 mg/dL (8.5-10.1) 7.6 mg/dL (8.5-10.1) Total Bilirubin 0.1 mg/dL (0.2-1.0) Aspartate Amino Transf (AST/SGOT) 15 U/L (15-37) Alanine Aminotransferase (ALT/SGPT) 14 U/L (14-59) Alkaline Phosphatase 228 U/L (46-116) Total Protein 6.3 g/dL (6.4-8.2) Albumin 2.6 g/dL (3.4-5.0) Albumin/Globulin Ratio 0.7 (1.0-1.7) Laboratory Tests Test 04/09/17 04:20 White Blood Count 4.2 x10^3/uL (4.0-11.0) Red Blood Count 2.49 x10^6/uL (3.50-5.40) Hemoglobin 7.2 g/dL (12.0-15.5) Hematocrit 22.5 % (36.0-47.0) Mean Corpuscular Volume 90 fL (79-100) Mean Corpuscular Hemoglobin 29 pg (25-35) Mean Corpuscular Hemoglobin Concent 32 g/dL (31-37) Red Cell Distribution Width 15.1 % (11.5-14.5) Platelet Count 142 x10^3/uL (140-400) Prothrombin Time 17.9 SEC (11.7-14.0) Prothromb Time International Ratio 1.6 (0.8-1.1) Sodium Level 141 mmol/L (136-145) Potassium Level 4.3 mmol/L (3.5-5.1) Chloride Level 108 mmol/L (98-107) Carbon Dioxide Level 26 mmol/L (21-32) Anion Gap 7 (6-14) Blood Urea Nitrogen 28 mg/dL (7-20) Creatinine 1.0 mg/dL (0.6-1.0) Estimated GFR (Cockcroft-Gault) 52.4 Glucose Level 86 mg/dL (70-99) Calcium Level 7.6 mg/dL (8.5-10.1) Medications Active Scripts Medications Dose Route/Sig Max Daily Dose Days Date Category Levaquin (Levofloxacin) 500 Mg Tablet 500 Mg PO Q48H 8 06/24/16 Rx Robaxin (Methocarbamol) 500 Mg Tablet 500 Mg PO QID 06/19/16 Reported Cymbalta (Duloxetine Hcl) 30 Mg Capsule.dr 30 Mg PO DAILY 06/19/16 Reported FENTANYL 50mcg/hr (Fentanyl) 1 Each Patch.td72 1 Patch TP Q3DAYS PRN 06/19/16 Reported Tamsulosin Hcl 0.4 Mg Cap.er.24h 2 Cap PO HS 12/31/15 Reported Phenytoin Sodium Extended 100 Mg Capsule 100 Mg PO BID 12/31/15 Reported Melatonin 5 Mg Tablet 5 Mg PO HS 12/31/15 Reported Gabapentin 100 Mg Capsule 2 Cap PO BID 12/31/15 Reported DURAGESIC 50mcg/hr (Fentanyl) 1 Each Patch.td72 1 Patch TD Q72H 12/31/15 Reported Famotidine 40 Mg Tablet 40 Mg PO HS 12/31/15 Reported Nexium Capsule (Esomeprazole Magnesium) 40 Mg Capsule.dr 1 Cap PO DAILY 12/31/15 Reported Pacerone (Amiodarone Hcl) 100 Mg Tablet 100 Mg PO DAILY 12/31/15 Reported Hydrocodone-Apap 5-325 (Hydrocodone Bit/Acetaminophen) 1 Each Tablet 2 Tab PO Q4HRS PRN 12/31/15 Reported Impression . 1. Acute respiratory distress with pleurisy secondary to acute bilateral pulmonary emboli. 2. Acute pulmonary emboli. 3. Negative venous Dopplers of the lower extremities, performed on 04/03. h/o IVC filter 4. 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 5. H/o colon cancer (2 separate primaries s/p resections) 6. Anemia, no obvious blood loss Plan . 1. Continue LOVENOX/coumadin, Hb is trending down, no obvious bleeding/ GI consulted, PE despite IVC filter suggestive of hypercoagulable state ,? recurrent malignancy. 2. 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 Not the best candidate for EGD/ colonoscopy per GI 4. P.r.n. oxygen. 5. 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 6. transfusion PRN if Hb < 7 7. follow Hb closely ZACHARY CHING MD Apr 09, 2017 11:59
[2017-04-09] MEDS: ANTI-COAG MONITOR BY PHARMACY. MC PRN (13:08)
--- NOTE | 2017-04-09 13:26 | HP ---
ADMIT DATE: 04/04/2017 CHIEF COMPLAINT AND HISTORY OF PRESENT ILLNESS: This is an 87-year-old female who presented to the ER on the date of admission with complaints of right lower extremity pain and associated swelling. The patient stated that the pain was in her calf and worsened with ambulation or movement. The patient also complained of intermittent left-sided chest pain. Upon evaluation in the Emergency Room, a bilateral venous Doppler was performed which showed no DVTs. A CT of the chest was done without contrast. The impression of that was aneurysmal dilation of the ascending thoracic aorta which was similar to prior study, and mild bibasilar scar or atelectasis. Otherwise clear lungs. IVC filter was noted. A V/Q scan was done and did show a high probability of a PE. The patient was placed on a heparin and was admitted to the hospital for further evaluation and treatment. PAST MEDICAL HISTORY: Remarkable for chronic cervical pain, hemorrhoids, history of subdural hematoma, GERD, status post carcinoma of the colon. The patient has had MRSA of her right shoulder this previous December. MEDICATIONS: Medications were brought with the patient, listed on the computer and have been addressed. ALLERGIES: SHE IS ALLERGIC TO SULFA, DOXYCYCLINE, PENICILLIN, CELEBREX, SILVADENE CREAM, AND CIPRO. SOCIAL HISTORY: She is a nonsmoker and nondrinker. She does not use illicit drugs. FAMILY HISTORY: Noncontributory. REVIEW OF SYSTEMS: As mentioned above. PHYSICAL EXAMINATION: GENERAL: She is a frail, thin, elderly female, in no acute distress the morning of my examination. She responds verbally and is a good historian. VITAL SIGNS: Afebrile. HEENT: Remarkable for glasses, otherwise insignificant. NECK: Supple, without lymphadenopathy or thyromegaly. CHEST: Clear to auscultation. Respirations are even and unlabored, and no retractions are present. HEART: Regular rate and rhythm, without S3, S4 or murmur. ABDOMEN: Soft and nontender. No hepatosplenomegaly or mass. EXTREMITIES: No cyanosis, clubbing or edema. NEUROLOGIC: She is intact. IMPRESSION: 1. Right calf pain, rule out deep venous thrombosis. 2. Chest pain with V/Q indicating high-probability for pulmonary embolism. PLAN: As mentioned above, the patient has been admitted. Has been placed on a heparin drip per protocol. Cardiology has been consulted as well as Pulmonology. The patient will be closely monitored and treated appropriately during her hospital stay. DAVID NOEL MD DR: ELIZABETH/riley JOB#: [id number] / [id number]
[2017-04-09 15:00] VITALS: BP 102/47
[2017-04-09] MEDS ORDERED: WARFARIN 5 MG TABLET. PO ONE (16:00)
[2017-04-09 17:56] LABS: NEG OBC FOB NEG; POS OBC FOB POS
[2017-04-09 19:15] VITALS: BP 101/47
[2017-04-09] MEDS: ENOXAPARIN 40 MG/0.4 ML SYRINGE. SQ SCH (19:56)
[2017-04-09 23:20] VITALS: BP 103/46
[2017-04-10 03:20] VITALS: BP 105/45
[2017-04-10 04:37] LABS: BASO % 1 % (0-3); EOS % 3 % (0-3); HEMOGLOBIN 7.3 g/dL (12.0-15.5); LYMPH # 1.6 x10^3/uL (1.0-4.8); LYMPH % 35 % (24-48); MEAN CORPUSCULAR HEMOGLOBIN 29 pg (25-35); MEAN CORPUSCULAR HGB CONC 32 g/dL (31-37); MEAN CORPUSCULAR VOLUME 92 fL (79-100); MONO % 24 % (0-9); NEUT % 36 % (31-73); PLATELET COUNT 135 x10^3/uL (140-400); RED CELL DISTRIBUTION WIDTH 14.7 % (11.5-14.5); WHITE BLOOD COUNT 4.5 x10^3/uL (4.0-11.0)
[2017-04-10 05:04] LABS: INR 1.6 (0.8-1.1); PROTHROMBIN TIME PATIENT 18.3 SEC (11.7-14.0)
[2017-04-10 07:00] VITALS: BP 112/52
[2017-04-10] MEDS: GABAPENTIN 100 MG CAPSULE. PO SCH (07:24)
[2017-04-10] MEDS: PHENYTOIN SODIUM EXTENDED 100 MG CAPSULE PO SCH ×2 (07:25→21:31)
[2017-04-10] MEDS: PANTOPRAZOLE 40 MG TABLET.DR. PO SCH ×2 (07:27→21:31)
[2017-04-10] MEDS: AMIODARONE HCL 100 MG TABLET PO SCH (07:27)
[2017-04-10] MEDS: HYDROcodone/APAP 5/325MG 1 TAB TABLET PO PRN ×2 (07:28→16:01)
[2017-04-10] MEDS: fentaNYL 50MCG/HR PATCH 1 PATCH PATCH.TD72 TD SCH (07:30)
--- NOTE | 2017-04-10 08:58 | PDOC ---
GENERAL General: vss and afebrile. awake and alert and no new complaints. INR 1.6 today and will await therapeutic prior to dc. exam stable. no evidence of any bleeding. Problems: VITAL SIGNS Vital Signs: Vital Signs Date Time Temp Pulse Resp B/P (MAP) Pulse Ox O2 Delivery O2 Flow Rate FiO2 04/10/17 08:17 Room Air 04/10/17 07:27 51 110/61 04/10/17 07:00 97.5 16 96 97.5 ALLERGIES Allergies: Allergies Coded Allergies Type Severity Reaction Last Updated Verified Penicillins Allergy Intermediate 12/31/15 Yes Sulfa (Sulfonamide Antibiotics) Allergy Intermediate 12/31/15 Yes adhesive tape Allergy Intermediate 12/31/15 Yes aspirin Allergy Intermediate 12/31/15 Yes doxycycline Allergy Intermediate 12/31/15 Yes ferrous sulfate Allergy Intermediate 12/31/15 Yes ibuprofen Allergy Intermediate 12/31/15 Yes iodine Allergy Intermediate 12/31/15 Yes lactose Allergy Intermediate 12/31/15 Yes morphine Allergy Intermediate 12/31/15 Yes povidone-iodine Allergy Intermediate 12/31/15 Yes silver sulfadiazine Allergy Intermediate 12/31/15 Yes soap Allergy Intermediate 12/31/15 Yes I S O L A T I O N *CONTACT* Allergy Unknown 01/03/16 Yes MEDS Medications: Current Medications Medications (Trade) Dose Ordered Sig/Christine Start Time Stop Time Status Last Admin Dose Admin Acetaminophen (Tylenol) 650 mg PRN Q4HRS PRN 04/04/17 02:15 04/05/17 02:14 DC Acetaminophen/ Hydrocodone Bitart (Lortab 5/325) 1 tab Q6HRS PRN 04/04/17 10:45 04/10/17 07:28 1 TAB Amiodarone HCl (Cordarone) 100 mg DAILY 04/04/17 11:00 04/10/17 07:27 100 MG Apixaban (Eliquis) 2.5 mg BID 04/05/17 21:00 UNV Enoxaparin Sodium (Lovenox 40mg Syringe) 40 mg Q24H 04/05/17 22:00 04/09/17 19:56 40 MG Famotidine (Pepcid) 40 mg QHS 04/04/17 21:00 04/05/17 22:06 DC 04/04/17 21:24 40 MG Fentanyl (Duragesic 50mcg/ Hr Patch) 1 patch Q72H 04/04/17 10:45 04/10/17 07:30 1 PATCH Fentanyl Citrate (Fentanyl 2ml Vial) 25 mcg PRN Q1HR PRN 04/04/17 02:15 04/05/17 02:14 DC Gabapentin (Neurontin) 100 mg DAILY 04/04/17 11:30 04/10/17 07:24 100 MG Heparin Sodium (Porcine) (Heparin Sodium) 600 unit PRN Q6HRS PRN 04/04/17 02:45 04/05/17 16:36 DC Heparin Sodium/ Dextrose 500 ml @ 0 mls/hr CONT PRN 04/04/17 02:45 04/05/17 16:36 DC 04/05/17 13:44 0 MLS/HR Info (Anti-Coagulation Monitoring By Pharmacy) 1 each PRN DAILY PRN 04/04/17 03:00 04/09/17 13:08 1 EACH Ondansetron HCl (Zofran) 4 mg PRN Q8HRS PRN 04/04/17 02:15 04/05/17 02:14 DC Pantoprazole Sodium (Protonix) 40 mg BID 04/08/17 21:00 04/10/17 07:27 40 MG Phenytoin Sodium (Dilantin) 100 mg BID 04/04/17 11:00 04/10/17 07:25 100 MG Warfarin Sodium (Coumadin Per Pharmacy) 1 each PRN DAILY PRN 04/07/17 11:30 04/09/17 13:06 1 EACH Warfarin Sodium (Coumadin) 5 mg 1X WARF ONCE 04/09/17 16:00 04/09/17 16:01 DC 04/09/17 15:57 5 MG LAB Lab: Laboratory Tests Test 04/09/17 15:00 04/10/17 03:15 Stool Occult Blood Negative (NEG) White Blood Count 4.5 x10^3/uL (4.0-11.0) Red Blood Count 2.50 x10^6/uL (3.50-5.40) Hemoglobin 7.3 g/dL (12.0-15.5) Hematocrit 23.0 % (36.0-47.0) Mean Corpuscular Volume 92 fL (79-100) Mean Corpuscular Hemoglobin 29 pg (25-35) Mean Corpuscular Hemoglobin Concent 32 g/dL (31-37) Red Cell Distribution Width 14.7 % (11.5-14.5) Platelet Count 135 x10^3/uL (140-400) Neutrophils (%) (Auto) 36 % (31-73) Lymphocytes (%) (Auto) 35 % (24-48) Monocytes (%) (Auto) 24 % (0-9) Eosinophils (%) (Auto) 3 % (0-3) Basophils (%) (Auto) 1 % (0-3) Neutrophils # (Auto) 1.6 x10^3uL (1.8-7.7) Lymphocytes # (Auto) 1.6 x10^3/uL (1.0-4.8) Monocytes # (Auto) 1.1 x10^3/uL (0.0-1.1) Eosinophils # (Auto) 0.1 x10^3/uL (0.0-0.7) Basophils # (Auto) 0.0 x10^3/uL (0.0-0.2) Prothrombin Time 18.3 SEC (11.7-14.0) Prothromb Time International Ratio 1.6 (0.8-1.1) DAVID NOEL MD Apr 10, 2017 08:58
--- NOTE | 2017-04-10 10:49 | PDOC ---
Subjective: Subjective: No complaints. No bleeding. Objective: Vital Signs: Vital Signs Date Time Temp Pulse Resp B/P (MAP) Pulse Ox O2 Delivery O2 Flow Rate FiO2 04/10/17 08:17 Room Air 04/10/17 07:27 51 110/61 04/10/17 07:00 97.5 16 96 97.5 Labs: Laboratory Tests Test 04/09/17 15:00 04/10/17 03:15 Stool Occult Blood Negative White Blood Count 4.5 x10^3/uL Red Blood Count 2.50 x10^6/uL Hemoglobin 7.3 g/dL Hematocrit 23.0 % Mean Corpuscular Volume 92 fL Mean Corpuscular Hemoglobin 29 pg Mean Corpuscular Hemoglobin Concent 32 g/dL Red Cell Distribution Width 14.7 % Platelet Count 135 x10^3/uL Neutrophils (%) (Auto) 36 % Lymphocytes (%) (Auto) 35 % Monocytes (%) (Auto) 24 % Eosinophils (%) (Auto) 3 % Basophils (%) (Auto) 1 % Neutrophils # (Auto) 1.6 x10^3uL Lymphocytes # (Auto) 1.6 x10^3/uL Monocytes # (Auto) 1.1 x10^3/uL Eosinophils # (Auto) 0.1 x10^3/uL Basophils # (Auto) 0.0 x10^3/uL Platelet Estimate Pending Prothrombin Time 18.3 SEC Prothromb Time International Ratio 1.6 PE: GEN: NAD, was asleep LUNGS: CTAB HEART: RRR ABD: S/ND/NT NEURO/PSYCH: A & O 3 A/P: Anemia, hemoccult negative H/o colon cancer (2 separate primaries s/p resections), GERD, diverticulosis PEs on Warfarin -- Hgb holding in 7s. Continue PPI. FRANCHESCA MORALES Apr 10, 2017 10:49
[2017-04-10 11:00] VITALS: BP 115/55
[2017-04-10 11:24] LABS: % EOS 6 % (0-5)
[2017-04-10 11:25] LABS: PLT ESTIMATE DECREASED (ADEQUATE)
[2017-04-10 11:26] LABS: ANISOCYTOSIS PRESENT
--- NOTE | 2017-04-10 13:08 | PDOC ---
PULMONARY PROGRESS NOTES Subjective sob better, no cough, Vitals Vital Signs Date Time Temp Pulse Resp B/P (MAP) Pulse Ox O2 Delivery O2 Flow Rate FiO2 04/10/17 11:10 Room Air 04/10/17 11:00 97.6 60 16 115/55 (75) 95 97.6 ROS: No Nausea, No Abdominal Pain General: Alert, No acute distress HEENT: Other (nc ar perrl) Lungs: Other (decrease bs) Cardiovascular: S1, S2 Abdomen: Soft, Non-tender Neuro Exam: Alert Extremities: No Edema Skin: Warm Labs Laboratory Tests Test 04/09/17 04:20 04/09/17 15:00 04/10/17 03:15 White Blood Count 4.2 x10^3/uL (4.0-11.0) 4.5 x10^3/uL (4.0-11.0) Red Blood Count 2.49 x10^6/uL (3.50-5.40) 2.50 x10^6/uL (3.50-5.40) Hemoglobin 7.2 g/dL (12.0-15.5) 7.3 g/dL (12.0-15.5) Hematocrit 22.5 % (36.0-47.0) 23.0 % (36.0-47.0) Mean Corpuscular Volume 90 fL (79-100) 92 fL (79-100) Mean Corpuscular Hemoglobin 29 pg (25-35) 29 pg (25-35) Mean Corpuscular Hemoglobin Concent 32 g/dL (31-37) 32 g/dL (31-37) Red Cell Distribution Width 15.1 % (11.5-14.5) 14.7 % (11.5-14.5) Platelet Count 142 x10^3/uL (140-400) 135 x10^3/uL (140-400) Prothrombin Time 17.9 SEC (11.7-14.0) 18.3 SEC (11.7-14.0) Prothromb Time International Ratio 1.6 (0.8-1.1) 1.6 (0.8-1.1) Sodium Level 141 mmol/L (136-145) Potassium Level 4.3 mmol/L (3.5-5.1) Chloride Level 108 mmol/L (98-107) Carbon Dioxide Level 26 mmol/L (21-32) Anion Gap 7 (6-14) Blood Urea Nitrogen 28 mg/dL (7-20) Creatinine 1.0 mg/dL (0.6-1.0) Estimated GFR (Cockcroft-Gault) 52.4 Glucose Level 86 mg/dL (70-99) Calcium Level 7.6 mg/dL (8.5-10.1) Stool Occult Blood Negative (NEG) Neutrophils (%) (Auto) 36 % (31-73) Lymphocytes (%) (Auto) 35 % (24-48) Monocytes (%) (Auto) 24 % (0-9) Eosinophils (%) (Auto) 3 % (0-3) Basophils (%) (Auto) 1 % (0-3) Neutrophils # (Auto) 1.6 x10^3uL (1.8-7.7) Lymphocytes # (Auto) 1.6 x10^3/uL (1.0-4.8) Monocytes # (Auto) 1.1 x10^3/uL (0.0-1.1) Eosinophils # (Auto) 0.1 x10^3/uL (0.0-0.7) Basophils # (Auto) 0.0 x10^3/uL (0.0-0.2) Segmented Neutrophils % 44 % (35-66) Band Neutrophils % 1 % (0-9) Lymphocytes % 39 % (24-48) Monocytes % 10 % (0-10) Eosinophils % 6 % (0-5) Platelet Estimate Decreased (ADEQUATE) Giant Platelets Present Anisocytosis Present Laboratory Tests Test 04/09/17 15:00 04/10/17 03:15 Stool Occult Blood Negative (NEG) White Blood Count 4.5 x10^3/uL (4.0-11.0) Red Blood Count 2.50 x10^6/uL (3.50-5.40) Hemoglobin 7.3 g/dL (12.0-15.5) Hematocrit 23.0 % (36.0-47.0) Mean Corpuscular Volume 92 fL (79-100) Mean Corpuscular Hemoglobin 29 pg (25-35) Mean Corpuscular Hemoglobin Concent 32 g/dL (31-37) Red Cell Distribution Width 14.7 % (11.5-14.5) Platelet Count 135 x10^3/uL (140-400) Neutrophils (%) (Auto) 36 % (31-73) Lymphocytes (%) (Auto) 35 % (24-48) Monocytes (%) (Auto) 24 % (0-9) Eosinophils (%) (Auto) 3 % (0-3) Basophils (%) (Auto) 1 % (0-3) Neutrophils # (Auto) 1.6 x10^3uL (1.8-7.7) Lymphocytes # (Auto) 1.6 x10^3/uL (1.0-4.8) Monocytes # (Auto) 1.1 x10^3/uL (0.0-1.1) Eosinophils # (Auto) 0.1 x10^3/uL (0.0-0.7) Basophils # (Auto) 0.0 x10^3/uL (0.0-0.2) Segmented Neutrophils % 44 % (35-66) Band Neutrophils % 1 % (0-9) Lymphocytes % 39 % (24-48) Monocytes % 10 % (0-10) Eosinophils % 6 % (0-5) Platelet Estimate Decreased (ADEQUATE) Giant Platelets Present Anisocytosis Present Prothrombin Time 18.3 SEC (11.7-14.0) Prothromb Time International Ratio 1.6 (0.8-1.1) Medications Active Scripts Medications Dose Route/Sig Max Daily Dose Days Date Category Levaquin (Levofloxacin) 500 Mg Tablet 500 Mg PO Q48H 8 06/24/16 Rx Robaxin (Methocarbamol) 500 Mg Tablet 500 Mg PO QID 06/19/16 Reported Cymbalta (Duloxetine Hcl) 30 Mg Capsule.dr 30 Mg PO DAILY 06/19/16 Reported FENTANYL 50mcg/hr (Fentanyl) 1 Each Patch.td72 1 Patch TP Q3DAYS PRN 06/19/16 Reported Tamsulosin Hcl 0.4 Mg Cap.er.24h 2 Cap PO HS 12/31/15 Reported Phenytoin Sodium Extended 100 Mg Capsule 100 Mg PO BID 12/31/15 Reported Melatonin 5 Mg Tablet 5 Mg PO HS 12/31/15 Reported Gabapentin 100 Mg Capsule 2 Cap PO BID 12/31/15 Reported DURAGESIC 50mcg/hr (Fentanyl) 1 Each Patch.td72 1 Patch TD Q72H 12/31/15 Reported Famotidine 40 Mg Tablet 40 Mg PO HS 12/31/15 Reported Nexium Capsule (Esomeprazole Magnesium) 40 Mg Capsule.dr 1 Cap PO DAILY 12/31/15 Reported Pacerone (Amiodarone Hcl) 100 Mg Tablet 100 Mg PO DAILY 12/31/15 Reported Hydrocodone-Apap 5-325 (Hydrocodone Bit/Acetaminophen) 1 Each Tablet 2 Tab PO Q4HRS PRN 12/31/15 Reported Impression . 1. Acute respiratory distress with pleurisy secondary to acute bilateral pulmonary emboli. 2. Acute pulmonary emboli. 3. Negative venous Dopplers of the lower extremities, performed on 04/03. h/o IVC filter 4. 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 5. H/o colon cancer (2 separate primaries s/p resections) 6. Anemia, no obvious blood loss Plan . 1. Continue LOVENOX/coumadin, Hb is trending down, no obvious bleeding/ GI following, She has PE despite IVC filter suggestive of hypercoagulable state ,? recurrent malignancy. 2. 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 Not the best candidate for EGD/ colonoscopy per GI 4. P.r.n. oxygen. 5. 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 6. transfusion PRN if Hb < 7 7. follow Hb closely 8. DC lovenox once INR therapeutic ZACHARY CHING MD Apr 10, 2017 13:08
[2017-04-10 15:00] VITALS: BP 97/50
[2017-04-10] MEDS ORDERED: WARFARIN 7.5 MG TABLET. PO ONE (16:00)
[2017-04-10 19:15] VITALS: BP 103/47
[2017-04-10] MEDS: ENOXAPARIN 40 MG/0.4 ML SYRINGE. SQ SCH (21:32)
[2017-04-10 23:15] VITALS: BP 103/44
[2017-04-11 03:15] VITALS: BP 103/44
[2017-04-11 06:23] LABS: INR 2.1 (0.8-1.1); PROTHROMBIN TIME PATIENT 21.9 SEC (11.7-14.0)
[2017-04-11 07:00] VITALS: BP 112/51
--- NOTE | 2017-04-11 07:58 | PDOC ---
GENERAL General: vss and afebrile. awake and alert. chest clear and heart regular. abdomen benign. INR 2.1. home on regular routine and warfarin for PE. see discharge summary. Problems: VITAL SIGNS Vital Signs: Vital Signs Date Time Temp Pulse Resp B/P (MAP) Pulse Ox O2 Delivery O2 Flow Rate FiO2 04/11/17 07:00 99.0 53 16 112/51 (71) 93 Room Air 99.0 ALLERGIES Allergies: Allergies Coded Allergies Type Severity Reaction Last Updated Verified Penicillins Allergy Intermediate 12/31/15 Yes Sulfa (Sulfonamide Antibiotics) Allergy Intermediate 12/31/15 Yes adhesive tape Allergy Intermediate 12/31/15 Yes aspirin Allergy Intermediate 12/31/15 Yes doxycycline Allergy Intermediate 12/31/15 Yes ferrous sulfate Allergy Intermediate 12/31/15 Yes ibuprofen Allergy Intermediate 12/31/15 Yes iodine Allergy Intermediate 12/31/15 Yes lactose Allergy Intermediate 12/31/15 Yes morphine Allergy Intermediate 12/31/15 Yes povidone-iodine Allergy Intermediate 12/31/15 Yes silver sulfadiazine Allergy Intermediate 12/31/15 Yes soap Allergy Intermediate 12/31/15 Yes I S O L A T I O N *CONTACT* Allergy Unknown 01/03/16 Yes MEDS Medications: Current Medications Medications (Trade) Dose Ordered Sig/Christine Start Time Stop Time Status Last Admin Dose Admin Acetaminophen (Tylenol) 650 mg PRN Q4HRS PRN 04/04/17 02:15 04/05/17 02:14 DC Acetaminophen/ Hydrocodone Bitart (Lortab 5/325) 1 tab Q6HRS PRN 04/04/17 10:45 04/10/17 16:01 1 TAB Amiodarone HCl (Cordarone) 100 mg DAILY 04/04/17 11:00 04/10/17 07:27 100 MG Apixaban (Eliquis) 2.5 mg BID 04/05/17 21:00 UNV Enoxaparin Sodium (Lovenox 40mg Syringe) 40 mg Q24H 04/05/17 22:00 04/10/17 21:32 40 MG Famotidine (Pepcid) 40 mg QHS 04/04/17 21:00 04/05/17 22:06 DC 04/04/17 21:24 40 MG Fentanyl (Duragesic 50mcg/ Hr Patch) 1 patch Q72H 04/04/17 10:45 04/10/17 07:30 1 PATCH Fentanyl Citrate (Fentanyl 2ml Vial) 25 mcg PRN Q1HR PRN 04/04/17 02:15 04/05/17 02:14 DC Gabapentin (Neurontin) 100 mg DAILY 04/04/17 11:30 04/10/17 07:24 100 MG Heparin Sodium (Porcine) (Heparin Sodium) 600 unit PRN Q6HRS PRN 04/04/17 02:45 04/05/17 16:36 DC Heparin Sodium/ Dextrose 500 ml @ 0 mls/hr CONT PRN 04/04/17 02:45 04/05/17 16:36 DC 04/05/17 13:44 0 MLS/HR Info (Anti-Coagulation Monitoring By Pharmacy) 1 each PRN DAILY PRN 04/04/17 03:00 04/09/17 13:08 1 EACH Ondansetron HCl (Zofran) 4 mg PRN Q8HRS PRN 04/04/17 02:15 04/05/17 02:14 DC Pantoprazole Sodium (Protonix) 40 mg BID 04/08/17 21:00 04/10/17 21:31 40 MG Phenytoin Sodium (Dilantin) 100 mg BID 04/04/17 11:00 04/10/17 21:31 100 MG Warfarin Sodium (Coumadin Per Pharmacy) 1 each PRN DAILY PRN 04/07/17 11:30 04/10/17 13:14 1 EACH Warfarin Sodium (Coumadin) 7.5 mg 1X WARF ONCE 04/10/17 16:00 04/10/17 16:01 DC 04/10/17 16:00 7.5 MG LAB Lab: Laboratory Tests Test 04/11/17 05:20 Prothrombin Time 21.9 SEC (11.7-14.0) Prothromb Time International Ratio 2.1 (0.8-1.1) DAVID NOEL MD Apr 11, 2017 07:58
[2017-04-11] MEDS: GABAPENTIN 100 MG CAPSULE. PO SCH (08:40)
[2017-04-11] MEDS: PANTOPRAZOLE 40 MG TABLET.DR. PO SCH (08:40)
[2017-04-11] MEDS: PHENYTOIN SODIUM EXTENDED 100 MG CAPSULE PO SCH (08:40)
[2017-04-11] MEDS: AMIODARONE HCL 100 MG TABLET PO SCH (08:41)
[2017-04-11] MEDS: HYDROcodone/APAP 5/325MG 1 TAB TABLET PO PRN (08:48)
--- NOTE | 2017-04-11 10:26 | PDOC ---
Subjective: Subjective: No complaints, asks when she can leave. Still no bleeding. Objective: Vital Signs: Vital Signs Date Time Temp Pulse Resp B/P (MAP) Pulse Ox O2 Delivery O2 Flow Rate FiO2 04/11/17 09:59 93 Room Air 04/11/17 08:41 53 112/51 04/11/17 07:00 99.0 16 99.0 Labs: Laboratory Tests Test 04/11/17 05:20 Prothrombin Time 21.9 SEC Prothromb Time International Ratio 2.1 PE: GEN: NAD, talking on phone LUNGS: clear HEART: RRR ABD: S/ND/NT NEURO/PSYCH: A & O 3 A/P: Anemia, hemoccult negative - Hgb stable w/o obvious bleeding PEs on Warfarin -- DC per primary. FRANCHESCA MORALES Apr 11, 2017 10:26
[2017-04-11 11:00] VITALS: BP 96/43
--- NOTE | 2017-04-11 13:17 | PDOC ---
PULMONARY PROGRESS NOTES Subjective sob better, no cough, Vitals Vital Signs Date Time Temp Pulse Resp B/P (MAP) Pulse Ox O2 Delivery O2 Flow Rate FiO2 04/11/17 11:00 98.6 64 16 96/43 (60) 95 Room Air 98.6 ROS: No Nausea, No Abdominal Pain General: Alert, No acute distress HEENT: Other (nc ar perrl) Lungs: Other (decrease bs) Cardiovascular: S1, S2 Abdomen: Soft, Non-tender Neuro Exam: Alert Extremities: No Edema Skin: Warm Labs Laboratory Tests Test 04/09/17 15:00 04/10/17 03:15 04/11/17 05:20 Stool Occult Blood Negative (NEG) White Blood Count 4.5 x10^3/uL (4.0-11.0) Red Blood Count 2.50 x10^6/uL (3.50-5.40) Hemoglobin 7.3 g/dL (12.0-15.5) Hematocrit 23.0 % (36.0-47.0) Mean Corpuscular Volume 92 fL (79-100) Mean Corpuscular Hemoglobin 29 pg (25-35) Mean Corpuscular Hemoglobin Concent 32 g/dL (31-37) Red Cell Distribution Width 14.7 % (11.5-14.5) Platelet Count 135 x10^3/uL (140-400) Neutrophils (%) (Auto) 36 % (31-73) Lymphocytes (%) (Auto) 35 % (24-48) Monocytes (%) (Auto) 24 % (0-9) Eosinophils (%) (Auto) 3 % (0-3) Basophils (%) (Auto) 1 % (0-3) Neutrophils # (Auto) 1.6 x10^3uL (1.8-7.7) Lymphocytes # (Auto) 1.6 x10^3/uL (1.0-4.8) Monocytes # (Auto) 1.1 x10^3/uL (0.0-1.1) Eosinophils # (Auto) 0.1 x10^3/uL (0.0-0.7) Basophils # (Auto) 0.0 x10^3/uL (0.0-0.2) Segmented Neutrophils % 44 % (35-66) Band Neutrophils % 1 % (0-9) Lymphocytes % 39 % (24-48) Monocytes % 10 % (0-10) Eosinophils % 6 % (0-5) Platelet Estimate Decreased (ADEQUATE) Giant Platelets Present Anisocytosis Present Prothrombin Time 18.3 SEC (11.7-14.0) 21.9 SEC (11.7-14.0) Prothromb Time International Ratio 1.6 (0.8-1.1) 2.1 (0.8-1.1) Laboratory Tests Test 04/11/17 05:20 Prothrombin Time 21.9 SEC (11.7-14.0) Prothromb Time International Ratio 2.1 (0.8-1.1) Medications Active Scripts Medications Dose Route/Sig Max Daily Dose Days Date Category Levaquin (Levofloxacin) 500 Mg Tablet 500 Mg PO Q48H 8 06/24/16 Rx Robaxin (Methocarbamol) 500 Mg Tablet 500 Mg PO QID 06/19/16 Reported Cymbalta (Duloxetine Hcl) 30 Mg Capsule.dr 30 Mg PO DAILY 06/19/16 Reported FENTANYL 50mcg/hr (Fentanyl) 1 Each Patch.td72 1 Patch TP Q3DAYS PRN 06/19/16 Reported Tamsulosin Hcl 0.4 Mg Cap.er.24h 2 Cap PO HS 12/31/15 Reported Phenytoin Sodium Extended 100 Mg Capsule 100 Mg PO BID 12/31/15 Reported Melatonin 5 Mg Tablet 5 Mg PO HS 12/31/15 Reported Gabapentin 100 Mg Capsule 2 Cap PO BID 12/31/15 Reported DURAGESIC 50mcg/hr (Fentanyl) 1 Each Patch.td72 1 Patch TD Q72H 12/31/15 Reported Famotidine 40 Mg Tablet 40 Mg PO HS 12/31/15 Reported Nexium Capsule (Esomeprazole Magnesium) 40 Mg Capsule.dr 1 Cap PO DAILY 12/31/15 Reported Pacerone (Amiodarone Hcl) 100 Mg Tablet 100 Mg PO DAILY 12/31/15 Reported Hydrocodone-Apap 5-325 (Hydrocodone Bit/Acetaminophen) 1 Each Tablet 2 Tab PO Q4HRS PRN 12/31/15 Reported Impression . 1. Acute respiratory distress with pleurisy secondary to acute bilateral pulmonary emboli. 2. Acute pulmonary emboli. 3. Negative venous Dopplers of the lower extremities, performed on 04/03. h/o IVC filter 4. 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 5. H/o colon cancer (2 separate primaries s/p resections) 6. Anemia, no obvious blood loss Plan . 1. Continue LOVENOX/coumadin, Hb is trending down, no obvious bleeding/ GI following, She has PE despite IVC filter suggestive of hypercoagulable state ,? recurrent malignancy. 2. May not be the best candidate for retirement AC/ Short term 3 months would be reasonable if VQ shows resolution on follow up 3. d/w daughter Magdalene. she will be closely watching her gait for assessment of fall risk. f/u Hb closely with PCP 4. P.r.n. oxygen. 5. 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 6. transfusion PRN if Hb < 7 7. DC lovenox , INR therapeutic ZACHARY CHING MD Apr 11, 2017 13:17
== END 2017-04-11 14:00 | disposition home or self-care (01) | DRG 299 ==
LOC: ER 21:10 → 6 SOUTH 04-04 00:59
PROVIDERS: ADMIT Family Medicine; ATTEND Family Medicine
DX: I82.4Z1 Acute embolism and thrombosis of unspecified deep veins of right distal lower extremity (principal); I26.99 Other pulmonary embolism without acute cor pulmonale; E46 Unspecified protein-calorie malnutrition; I71.2 Thoracic aortic aneurysm, without rupture; G62.9 Polyneuropathy, unspecified; R06.00 Dyspnea, unspecified; I48.0 Paroxysmal atrial fibrillation; J44.9 Chronic obstructive pulmonary disease, unspecified; M41.9 Scoliosis, unspecified; I10 Essential (primary) hypertension; J98.11 Atelectasis; Z68.1 Body mass index [BMI] 19.9 or less, adult; D64.9 Anemia, unspecified; G40.909 Epilepsy, unspecified, not intractable, without status epilepticus; K21.9 Gastro-esophageal reflux disease without esophagitis; K57.90 Diverticulosis of intestine, part unspecified, without perforation or abscess without bleeding; M81.0 Age-related osteoporosis without current pathological fracture; Z85.048 Personal history of other malignant neoplasm of rectum, rectosigmoid junction, and anus; Z86.14 Personal history of Methicillin resistant Staphylococcus aureus infection; Z86.718 Personal history of other venous thrombosis and embolism; Z87.891 Personal history of nicotine dependence; Z90.49 Acquired absence of other specified parts of digestive tract; Z91.041 Radiographic dye allergy status; G89.29 Other chronic pain; M19.90 Unspecified osteoarthritis, unspecified site; Z88.6 Allergy status to analgesic agent; Z88.5 Allergy status to narcotic agent; Z88.2 Allergy status to sulfonamides; Z88.0 Allergy status to penicillin; Z88.8 Allergy status to other drugs, medicaments and biological substances; Z90.710 Acquired absence of both cervix and uterus; Z98.49 Cataract extraction status, unspecified eye; Z85.038 Personal history of other malignant neoplasm of large intestine
CPT/HCPCS: 36415; 71010; 71250; 78582; 80048; 80053; 80061; 80076; 81001; 82274; 83690; 83880; 84484; 85007; 85025; 85027; 85520; 85610; 85730; 87086; 87641; 93005; 93306; 93970; 93971; 96374; A9540; A9558; J1644; J1650; 97110; 97116; 97530; 97535; 99285-25

== ENCOUNTER → 2017-11-13 | Outpatient (CLI) | payer MEDICARE, BC ==
[2017-11-13 13:13] LABS: MEAN CORPUSCULAR HGB CONC 31 g/dL (31-37)
[2017-11-13 13:15] LABS: HEMATOCRIT 19.6 % (36.0-47.0); HEMOGLOBIN 6.1 g/dL (12.0-15.5)
[2017-11-13] MEDS: FUROSEMIDE 20 MG/2 ML VIAL. IVP (15:24)
[2017-11-13 15:30] LABS: IMMEDIATE SPIN CROSSMATCH 1 2
== END | disposition home or self-care (01) ==
LOC: OPS 11:44
DX: D64.9 Anemia, unspecified (principal); J44.9 Chronic obstructive pulmonary disease, unspecified; K21.9 Gastro-esophageal reflux disease without esophagitis; I10 Essential (primary) hypertension; M81.0 Age-related osteoporosis without current pathological fracture; I48.0 Paroxysmal atrial fibrillation; Z68.1 Body mass index [BMI] 19.9 or less, adult; Z87.891 Personal history of nicotine dependence; Z90.49 Acquired absence of other specified parts of digestive tract
CPT/HCPCS: 36415; 36430; 85014; 85018; 86850; 86900; 86901; 86920; 96374; P9016